=== PATIENT | female | born 1935 | race Caucasian/White ===

== ENCOUNTER → 2018-11-04 | Outpatient (CLI) | payer MEDICARE, OTHER ==
--- NOTE | 2018-11-04 13:26 | MR ---
EXAMINATION TYPE: MR brain wo/w con DATE OF EXAM: 11/04/2018 COMPARISON: MRI brain March 28, 2015 and older MRIs. HISTORY: Headache, aneurysm, and memory loss. TECHNIQUE: Multiplanar, multisequence images of the brain and brainstem is performed without and with IV contras t, utilizing 6 mL intravenous Gadavist . FINDINGS: Diffusion weighted images demonstrate no evidence of a recent infarct or other diffusion ab normality. There is no worrisome extra-axial fluid collection. There is diffuse ventricular and sulc al prominence. There are scattered foci of T2 hyperintensity seen throughout the superficial, deep, a nd the periventricular white matter. Slightly confluent in appearance periventricular level. No signi ficant change from prior. Midline structures demonstrate normal morphology. The craniocervical junction appears within normal limits. Post contrast images demonstrate no abnormal enhancement. There is hypoplastic left P1 segme nt with filling of P2 segment due to patent left posterior communicating artery. 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 The dural venous sinuses appear patent. The visualized sinuses are clear and the globes are intact. IMPRESSION: There is mild to moderate diffuse cerebral atrophy and moderate chronic small vessel isch emic change. 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
== END | disposition home or self-care (01) ==
LOC: RADMRIMAIN 11:26
PROVIDERS: ATTEND Family Medicine
DX: G31.9 Degenerative disease of nervous system, unspecified (principal); I67.82 Cerebral ischemia
CPT/HCPCS: 70553; A9585

== ENCOUNTER → 2022-01-05 | Outpatient (CLI) | payer MEDICARE, OTHER ==
--- NOTE | 2022-01-05 15:38 | PE ---
EXAMINATION TYPE: PET CT fusion skull to thigh DATE OF EXAM: 01/05/2022 COMPARISON: Outside chest CT December 08, 2021 HISTORY: Solitary pulmonary nodule, abnormal CT TECHNIQUE: Following the intravenous administration of 12.6 mCi of F-18 FDG, whole body images are p erformed from the skull base to the midthigh. Images are reviewed on the computer in the coronal, ax ial, and sagittal planes. Reconstructed rotating images are created on independent workstation and r eviewed on the computer. A localization and attenuation correction CT is performed in conjunction w ith the PET scan. Blood glucose level equals 95. SCAN: Initial Scan FINDINGS: SKULL BASE AND NECK: No abnormal hypermetabolic uptake. CHEST, MEDIASTINUM, AND HILAR REGION: Background moderate underlying emphysematous change redemonstra zuleika. Redemonstration of spiculated 3.6 x 3.4 cm mass in the left upper to midlung with abnormal hyper metabolic uptake, max SUV is 12.24. No additional areas of abnormal hypermetabolic uptake. ABDOMEN AND PELVIS: Slightly low dense thickening to left adrenal gland without abnormal hypermetabol ic uptake favors lipid rich hyperplasia. Some lobulated contour to the right kidney with partially ex ophytic thin-walled cyst anterolateral aspect axial image 177 measuring near 2.0 cm. No suspicious ar eas of abnormal hypermetabolic uptake. OSSEOUS STRUCTURES: No areas of abnormal hypermetabolic uptake. OTHER CT: Few diverticula in the sigmoid colon are present. IMPRESSION: Confirmation of hypermetabolic suspicious left upper lung spiculated mass consistent with neoplasm. No abnormal adenopathy or metastatic disease seen.
== END | disposition home or self-care (01) ==
LOC: RADPETMAIN 11:55
PROVIDERS: ATTEND Family Medicine
DX: R91.1 Solitary pulmonary nodule (principal)
CPT/HCPCS: 78815; A9552

== ENCOUNTER → 2022-01-27 | Outpatient (CLI) | payer MEDICARE, OTHER ==
--- NOTE | 2022-01-27 17:52 | MR ---
EXAMINATION TYPE: MR brain wo/w con DATE OF EXAM: 01/27/2022 COMPARISON: None HISTORY: Cerebral Aneurysm, nonruptured CONTRAST: Standard multiplanar, multisequence MRI departmental protocol images were obtained without contrast a nd with 6 mL intravenous Gadavist gadolinium contrast. There is some cerebral cortical atrophy. There is no mass effect or midline shift. No sign of intracr anial hemorrhage. Diffusion images show no sign of an acute infarct. There are coalescent areas of increased signal in the periventricular white matter adjacent to the ve ntricles. These measure up to 1 cm in thickness. The brainstem is intact. Cerebellum is intact. Contrast images show no pathologic enhancement. There is normal enhancement of the venous sinuses. There is minimal thinning of the corpus callosum. No evidence of sellar mass. No evidence of orbital mass. IMPRESSION: Periventricular white matter changes could relate to demyelinating disease or microvascular ischemia. Mild cerebral atrophy. No acute infarct.
== END | disposition home or self-care (01) ==
LOC: RADMRIMAIN 14:08
PROVIDERS: ATTEND Internal Medicine
DX: G31.9 Degenerative disease of nervous system, unspecified (principal)
CPT/HCPCS: 70553; A9585

== ENCOUNTER → 2022-10-20 | Outpatient (CLI) | payer MEDICARE, OTHER ==
--- NOTE | 2022-10-20 21:57 | PE ---
EXAMINATION TYPE: PET CT fusion skull to thigh DATE OF EXAM: 10/20/2022 CLINICAL INDICATION:Female, 87 years old with history of C34.12; TECHNIQUE: Following the intravenous administration of 13.4 mCi of F-18 FDG, whole body images are performed from the skull base to the midthigh. Images are reviewed on the computer in the coronal, a xial, and sagittal planes. Reconstructed rotating images are created on independent workstation and reviewed on the computer. A non-contrast CT is performed in conjunction with the PET scan. Glucose level 101 mg/dL COMPARISON: CT None, PET/CT 01/05/2022, FINDINGS: Mediastinal SUV mean is 1.6. Hepatic parenchyma SUV mean is 2.3. SKULL BASE AND NECK: Asymmetric right FDG activity within the oropharynx max SUV 4.3, previously 4.7 . CHEST, MEDIASTINUM, AND HILAR REGION: * Left upper lung mass no measuring 42 x 38 mm, previously 34 x 36 mm. Max SUV 18.3, previously 12.2 * Left upper lung nodule measures similarly at 5 mm with max SUV 1.4, previously 1.3. * Right upper lobe pulmonary nodule measuring 8 mm is similar max SUV 1.7, previously 1.4. ABDOMEN AND PELVIS: No suspicious radiotracer activity. OSSEOUS STRUCTURES: No suspicious radiotracer activity. OTHER CT: Bilaterally aphakia. Intracranial atherosclerosis of the arterial vasculature. Atherosclero sis of the arterial vasculature. Right renal cyst. Small hiatal hernia. Few scattered colonic diverti cula. IMPRESSION: 1. Overall progressive disease with increasing size of left upper lobe mass with increased metabolic activity. No enlarged metabolically active lymph nodes visualized. 2. Few scattered nodular changes are stable to prior and are suspicious. Attention follow-up of thes e lesions. 3. Mild asymmetric right oral pharynx FDG activity consider direct visualization and attention on fo llow-up.
== END | disposition home or self-care (01) ==
LOC: RADPETMAIN 13:13
PROVIDERS: ATTEND Family Medicine
DX: C34.12 Malignant neoplasm of upper lobe, left bronchus or lung (principal); R91.8 Other nonspecific abnormal finding of lung field
CPT/HCPCS: 78815; A9552

== ENCOUNTER → 2023-03-07 | Outpatient (CLI) | payer MEDICARE, OTHER ==
--- NOTE | 2023-03-07 13:21 | CT ---
EXAMINATION TYPE: CT chest wo con DATE OF EXAM: 03/07/2023 COMPARISON: PET/CT 10/20/2022 HISTORY: lung CA CT DLP: [address] of the chest was performed with lung and mediastinal window settings submitted. The la ck of contrast limits evaluation of the vascular, mediastinal and parenchymal structures including th e upper abdomen. LUNGS: There is left upper lobe perihilar mass noted measuring 3.3 x 3.2 cm with measurement on PET/C T of 4.2 x 3.8 cm. There is narrowing of the left upper lobe bronchus. No evidence for volume loss at this time. There are couple of nodular densities within the left upper lobe measuring 7 mm respectiv darrin. There is additional 8 mm right upper lobe pulmonary nodule image 27. Groundglass density seen le ft lower lobe posteriorly measures 5.5 mm. Upper lobe centrilobular emphysema. MEDIASTINUM/JOSE: Thoracic aorta is of normal caliber with limited evaluation given lack of contrast . The heart is not enlarged. No evidence for mediastinal mass. No lymph nodes greater than 1cm. UPPER ABDOMEN: No significant abnormality is seen. OTHER: No significant other abnormality. IMPRESSION: 1. Left upper lobe pulmonary mass persists however appears to be smaller in size. Scattered pulmonar y nodules. No definite evidence for hilar adenopathy although lack of contrast limits evaluation.
== END | disposition home or self-care (01) ==
LOC: RADCTMAIN 11:45
PROVIDERS: ATTEND Radiology Radiation Oncology
DX: C34.12 Malignant neoplasm of upper lobe, left bronchus or lung (principal); R91.8 Other nonspecific abnormal finding of lung field; Z87.891 Personal history of nicotine dependence
CPT/HCPCS: 71250

== ENCOUNTER → 2023-05-27 | Outpatient (CLI) | payer MEDICARE, OTHER ==
--- NOTE | 2023-05-30 09:42 | CT ---
EXAMINATION TYPE: CT chest wo con CT DLP: 416 mGycm, Automated exposure control for dose reduction was used. DATE OF EXAM: 05/27/2023 10:48 AM COMPARISON: CT chest 03/07/2023 and before including PET/CT 10/20/2022. CLINICAL INDICATION:Female, 88 years old with history of C34.12 LUNG CA; PHH, h/o lung CA, f/u TECHNIQUE: Multiple axial images were obtained through the chest. Sagittal and coronal reformats were created for review. Contrast used: mL of (None if empty) Oral contrast used: (None if empty) FINDINGS: Exam is limited by lack of contrast. LUNGS: Continued decrease in size and bulkiness of the left upper lobe perihilar mass (had intense in creased activity on PET), now difficult to measure precisely and its morphology is now rather flat an d strandy suggesting progressive resolution. As a reference point, residual somewhat nodular portion anteriorly is now 1.4 x 1.2 cm image 20 series 4, and this same area had been 1.6 x 1.6 cm on the oscar or CT study. Previous left upper lobe 4.5 mm nodule on the PET/CT (had increased activity on PET) appears smaller/ less conspicuous measuring at most 3 mm currently image 10. An 8 mm nodular density in the lateral right upper lobe above the horizontal fissure image 25 (had in creased activity on PET) remains essentially stable. A somewhat stellate appearing focal groundglass density in the posterior left lower lobe appears unchanged measuring about 5 mm images 37 and 38 (and did not show increased activity on PET). No definite new or enlarging nodules. Moderate background e mphysema with an upper lobe predominance is again noted. Scattered areas of presumed scarring in both lungs are again noted. No acute consolidation, pleural effusion, or pneumothorax. AIRWAY: Central airways remain patent. There is again some degree of narrowing of the left upper lobe bronchi, without significant change. MEDIASTINUM/JOSE: Thoracic aorta appears unchanged, mild atherosclerotic calcification and the ascend ing portion is 3.1 cm. No enlarged mediastinal nodes. No definite hilar adenopathy is seen, although assessment is limited without contrast. Heart is normal in size. No pericardial effusion. Pulmonary t runk is nonenlarged. CHEST WALL: Stable and unremarkable. No evidence of axillary adenopathy. UPPER ABDOMEN: No significant abnormality or interval change. Mildly thickened left adrenal without e vidence of mass. MUSCULOSKELETAL: Mild degenerative changes of the thoracic spine. No clear evidence of lytic/blastic bony lesion. OTHER: No other significant abnormality. IMPRESSION: 1. Continued decrease in size and bulkiness of left upper lobe pulmonary mass suggesting progressive resolution. 2. Slight decrease in size of subcentimeter left upper lobe nodule. 3. Stable size of 8 mm right upper lobe nodule. 4. Otherwise stable exam, without evidence of new or enlarging lung nodule or mass.
== END | disposition home or self-care (01) ==
LOC: RADCTMAIN 10:13
PROVIDERS: ATTEND Radiology Radiation Oncology
DX: R91.8 Other nonspecific abnormal finding of lung field (principal); C34.12 Malignant neoplasm of upper lobe, left bronchus or lung; Z87.891 Personal history of nicotine dependence
CPT/HCPCS: 71250

== ENCOUNTER 2023-07-23 11:30 | Inpatient (IN) | payer MEDICARE, OTHER ==
--- NOTE | 2023-07-23 12:10 | ED ---
General Adult HPI - General Chief complaint: Recheck/Abnormal Lab/Rx Stated complaint: Cough, Chest Discomfort, Lung CA Pt Time Seen by Provider: 07/23/23 11:42 Source: patient, RN notes reviewed Mode of arrival: ambulatory Limitations: no limitations - History of Present Illness Initial comments: 88-year-old female presents emergency department from [facility] for evaluation of chest pain and shortness of breath. Patient states she has a history of lung cancer, renal mass. Patient states that she had a follow-up appointment with Dr. Miles today in which she is she was having worsening left-sided chest pain worse with cough and sent over for evaluation. Patient was also supposed to have a CT of her abdomen ordered by Dr. Hamilton for her deneen al mass. Patient states the pain in her chest has been worsening over the last several days she denies any rashes she states that she is not on any current treatment for cancer. - Related Data Home Medications Medication Instructions Recorded Confirmed Albuterol Inhaler [Ventolin Hfa 2 puff INHALATION RT-QID PRN 07/23/23 07/23/23 Inhaler] Cyanocobalamin [Vitamin B-12] 500 mcg PO DAILY 07/23/23 07/23/23 Fluticasone/Vilanterol [Breo 1 puff INHALATION RT-DAILY 07/23/23 07/23/23 Ellipta 100-25 Mcg Inhalr] guaiFENesin-DM 600/30MG [Mucinex 1 tab PO DAILY 07/23/23 07/23/23 Dm] Allergies Allergy/AdvReac Type Severity Reaction Status Date / Time No Known Allergies Allergy Verified 07/23/23 14:46 Review of Systems ROS Statement: Those systems with pertinent positive or pertinent negative responses have been documented in the HPI. ROS Other: All systems not noted in ROS Statement are negative. Past Medical History Past Medical History: Cancer Additional Past Medical History / Comment(s): lung CA History of Any Multi-Drug Resistant Organisms: None Reported Past Psychological History: No Psychological Hx Reported Smoking Status: Never smoker Past Alcohol Use History: None Reported Past Drug Use History: None Reported General Exam Limitations: no limitations General appearance: alert, in no apparent distress Head exam: Present: atraumatic, normocephalic, normal inspection Eye exam: Present: normal appearance, PERRL, EOMI. Absent: scleral icterus, conjunctival injection, periorbital swelling ENT exam: Present: normal exam, normal oropharynx, mucous membranes moist Neck exam: Present: normal inspection. Absent: tenderness, meningismus, lymphadenopathy Respiratory exam: Absent: normal lung sounds bilaterally, respiratory distress, wheezes, rales, rhonchi, stridor Cardiovascular Exam: Present: regular rate, normal rhythm, normal heart sounds. Absent: systolic murmur, diastolic murmur, rubs, gallop, clicks GI/Abdominal exam: Present: soft, normal bowel sounds. Absent: distended, tenderness, guarding, rebound, rigid Neurological exam: Present: alert Course Vital Signs 07/23/23 07/23/23 07/23/23 11:37 12:10 13:00 Temperature 98.8 F Pulse Rate 85 87 78 Respiratory 18 20 16 Rate Blood Pressure 159/80 147/79 147/79 O2 Sat by Pulse 98 96 98 Oximetry 07/23/23 13:22 Temperature Pulse Rate Respiratory 20 Rate Blood Pressure O2 Sat by Pulse Oximetry EKG Findings - EKG Comments: EKG Findings:: EKG performed at 12: 21 sinus rhythm with rate of 79 [place] 173 QRS 126 QT/QTc 390/425 - EKG Results: EKG: interpreted by VALERIO Medical Decision Making - Medical Decision Making Was pt. sent in by a medical professional or institution (, PA, TECHNOLOGY ARCHITECT, urgent care, hospital, or custodial...) When possible be specific @ -Just Did you speak to anyone other than the patient for history (EMS, parent, family, police, friend...)? What history was obtained from this source @ -No Did you review nursing and triage notes (agree or disagree)? Why? @ -I reviewed and agree with nursing and triage notes Were old charts reviewed (outside hosp., previous admission, EMS record, old EKG, old radiological studies, urgent care reports/EKG's, custodial records)? Report findings @ -No old charts were reviewed Differential Diagnosis (chest pain, altered mental status, abdominal pain women, abdominal pain men, vaginal bleeding, weakness, fever, dyspnea, syncope, headache, dizziness, GI bleed, back pain, seizure, CVA, palpatations, mental health, musculoskeletal)? @ -[Differential Chest Pain: Stable Angina, Unstable Angina, STEMI, NSTEMI Aortic Dissection, Pneumothorax, Musculoskeletal, Esophageal Spasm GERD, Cholecystitis, Pancreatitis, Zoster, this is not meant to be an all-inclusive list. EKG interpreted by me (3pts min.). @ -As above X-rays interpreted by me (1pt min.). @ -None done CT interpreted by me (1pt min.). @ -[CT E PE study angio chest showing no evidence of pulmonary embolism severe emphysema, left upper lobe mass with evidence of atelectasis or pneumonia changes CT abdomen pelvis shows no acute process U/S interpreted by me (1pt. min.). @ -None done What testing was considered but not performed or refused? (CT, X-rays, U/S, labs)? Why? @ -None What meds were considered but not given or refused? Why? @ -None Did you discuss the management of the patient with other professionals (professionals i.e. , PA, TECHNOLOGY ARCHITECT, lab, RT, psych nurse, medical social worker, recovery assistant, teacher, aoc director intelligence officer, telehealth case manager)? Give summary @ -No Was smoking cessation discussed for >3mins.? @ -No Was critical care preformed (if so, how long)? @ -No Were there social determinants of health that impacted care today? How? (Homelessness, low income, unemployed, alcoholism, drug addiction, transportation, low edu. Level, literacy, decrease access to med. care, care home, rehab)? @ -No Was there de-escalation of care discussed even if they declined (Discuss DNR or withdrawal of care, Hospice)? DNR status @ -No What co-morbidities impacted this encounter? (DM, HTN, Smoking, COPD, CAD, Cancer, CVA, ARF, Chemo, Hep., AIDS, mental health diagnosis, sleep apnea, morbid obesity)? @ -Lung cancer smoking history Was patient admitted / discharged? Hospital course, mention meds given and route, prescriptions, significant lab abnormalities, going to OR and other pertinent info. @ -[Admit the patient is having persistent lung pain, cough, evidence of pneumonia with known lung mass. Patient started on IV antibiotics with admitted for further evaluation and treatment of pneumonia. Undiagnosed new problem with uncertain prognosis? @ -Yes Drug Therapy requiring intensive monitoring for toxicity (Heparin, Nitro, Insulin, Cardizem)? @ -[No Were any procedures done? @ -No Diagnosis/symptom? @ -pneumonia, lung mass Acute, or Chronic, or Acute on Chronic? @ -[Acute Uncomplicated (without systemic symptoms) or Complicated (systemic symptoms)? @ -Complicated Side effects of treatment? @ -No Exacerbation, Progression, or Severe Exacerbation? @ -No Poses a threat to life or bodily function? How? (Chest pain, [place], [place], pneumonia, PE, COPD, DKA, ARF, appy, cholecystitis, CVA, Diverticulitis, Homicidal, Suicidal, threat to staff... and all critical care pts) @ -[Yes pneumonia, could cause respiratory failure - Lab Data Result diagrams: 07/23/23 12:04 07/23/23 12:04 Lab Results 07/23/23 07/23/23 07/23/23 Range/Units 12: 12: 12:04 WBC 7.3 (3.8-10.6) k/uL RBC 4.73 (3.80-5.40) m/uL Hgb 14.4 (11.4-16.0) gm/dL Hct 43.7 (34.0-46.0) % MCV 92.2 (80.0-100.0) fL MCH 30.5 (25.0-35.0) pg MCHC 33.0 (31.0-37.0) g/dL RDW 12.1 (11.5-15.5) % Plt Count 293 (150-450) k/uL MPV 7.2 Neutrophils % 70 % Lymphocytes % 15 % Monocytes % 9 % Eosinophils % 3 % Basophils % 1 % Neutrophils # 5.1 (1.3-7.7) k/uL Lymphocytes # 1.1 (1.0-4.8) k/uL Monocytes # 0.7 (0-1.0) k/uL Eosinophils # 0.2 (0-0.7) k/uL Basophils # 0.1 (0-0.2) k/uL PT 10.6 (10.0-12.5) sec INR 1.0 (<1.2) APTT 24.2 (22.0-30.0) sec Sodium 142 (137-145) mmol/L Potassium 4.2 (3.5-5.1) mmol/L Chloride 108 H (98-107) mmol/L Carbon Dioxide 28 (22-30) mmol/L Anion Gap 6 mmol/L BUN 13 (7-17) mg/dL Creatinine 0.61 (0.52-1.04) mg/dL Est GFR (CKD-EPI)AfAm >90 (>60 ml/min/1.73 sqM) Est GFR (CKD-EPI)NonAf 82 (>60 ml/min/1.73 sqM) Glucose 112 H (74-99) mg/dL Plasma Lactic Acid Arsalan (0.7-2.0) mmol/L Calcium 9.1 (8.4-10.2) mg/dL Magnesium 1.9 (1.6-2.3) mg/dL Total Bilirubin 0.6 (0.2-1.3) mg/dL AST 26 (14-36) U/L ALT 14 (4-34) U/L Alkaline Phosphatase 81 (38-126) U/L Troponin I (0.000-0.034) ng/mL Total Protein 6.9 (6.3-8.2) g/dL Albumin 4.2 (3.5-5.0) g/dL Influenza Type A (PCR) (Not Detectd) Influenza Type B (PCR) (Not Detectd) RSV (PCR) (Not Detectd) SARS-CoV-2 (PCR) (Not Detectd) 07/23/23 07/23/23 07/23/23 Range/Units 12:04 12:04 12:15 WBC (3.8-10.6) k/uL RBC (3.80-5.40) m/uL Hgb (11.4-16.0) gm/dL Hct (34.0-46.0) % MCV (80.0-100.0) fL MCH (25.0-35.0) pg MCHC (31.0-37.0) g/dL RDW (11.5-15.5) % Plt Count (150-450) k/uL MPV Neutrophils % % Lymphocytes % % Monocytes % % Eosinophils % % Basophils % % Neutrophils # (1.3-7.7) k/uL Lymphocytes # (1.0-4.8) k/uL Monocytes # (0-1.0) k/uL Eosinophils # (0-0.7) k/uL Basophils # (0-0.2) k/uL PT (10.0-12.5) sec INR (<1.2) APTT (22.0-30.0) sec Sodium (137-145) mmol/L Potassium (3.5-5.1) mmol/L Chloride (98-107) mmol/L Carbon Dioxide (22-30) mmol/L Anion Gap mmol/L BUN (7-17) mg/dL Creatinine (0.52-1.04) mg/dL Est GFR (CKD-EPI)AfAm (>60 ml/min/1.73 sqM) Est GFR (CKD-EPI)NonAf (>60 ml/min/1.73 sqM) Glucose (74-99) mg/dL Plasma Lactic Acid Arsalan 1.3 (0.7-2.0) mmol/L Calcium (8.4-10.2) mg/dL Magnesium (1.6-2.3) mg/dL Total Bilirubin (0.2-1.3) mg/dL AST (14-36) U/L ALT (4-34) U/L Alkaline Phosphatase (38-126) U/L Troponin I <0.012 (0.000-0.034) ng/mL Total Protein (6.3-8.2) g/dL Albumin (3.5-5.0) g/dL Influenza Type A (PCR) Not Detected (Not Detectd) Influenza Type B (PCR) Not Detected (Not Detectd) RSV (PCR) Not Detected (Not Detectd) SARS-CoV-2 (PCR) Not Detected (Not Detectd) Disposition Clinical Impression: Pneumonia Disposition: ADMITTED IP TO THIS [facility] Condition: Fair Time of Disposition: 14:15
[2023-07-23 12:15] LABS: Basophils # (A) 0.1 k/uL (0-0.2); Basophils % (A) 1 %; Eosinophils # (A) 0.2 k/uL (0-0.7); Eosinophils % (A) 3 %; HCT 43.7 % (34.0-46.0); HGB 14.4 gm/dL (11.4-16.0); Lymphocytes # (A) 1.1 k/uL (1.0-4.8); Lymphocytes % (A) 15 %; MCH 30.5 pg (25.0-35.0); MCV 92.2 fL (80.0-100.0); Mean Platelet Volume 7.2; Monocytes # (A) 0.7 k/uL (0-1.0); Monocytes % (A) 9 %; Neutrophils # (A) 5.1 k/uL (1.3-7.7); Neutrophils % (A) 70 %; Platelet Count 293 k/uL (150-450); RBC 4.73 m/uL (3.80-5.40); RDW 12.1 % (11.5-15.5); WBC 7.3 k/uL (3.8-10.6)
[2023-07-23] MEDS: SODIUM CHLORIDE 0.9% 500 ML 500 ML IV ONE (12:26)
[2023-07-23 12:27] LABS: ALT 14 U/L (4-34); AST 26 U/L (14-36); African American GFR (CKD) >90 (>60 ml/min/1.73 sqM); Albumin 4.2 g/dL (3.5-5.0); Alkaline Phosphatase 81 U/L (38-126); Anion Gap 6 mmol/L; Blood Urea Nitrogen 13 mg/dL (7-17); Calcium 9.1 mg/dL (8.4-10.2); Carbon Dioxide 28 mmol/L (22-30); Chloride 108 mmol/L (98-107); Glucose 112 mg/dL (74-99); Magnesium 1.9 mg/dL (1.6-2.3); Non-African American GFR(CKD) 82 (>60 ml/min/1.73 sqM); Potassium 4.2 mmol/L (3.5-5.1); Sodium 142 mmol/L (137-145); Total Bilirubin 0.6 mg/dL (0.2-1.3); Total Protein 6.9 g/dL (6.3-8.2)
[2023-07-23 12:29] LABS: Partial Thromboplastin Time 24.2 sec (22.0-30.0); Prothrombin Time 10.6 sec (10.0-12.5)
--- NOTE | 2023-07-23 13:48 | CT ---
EXAMINATION: CTA CHEST, CT ABDOMEN AND PELVIS WITH IV CONTRAST DATE OF EXAM: 07/23/2023 1:28 PM HISTORY: Chest pain and shortness of breath with history of lung cancer. TECHNIQUE: CTA of the chest followed by routine CT abdomen and pelvis was performed with sagittal, co aristides and 3-D reformatted images. 100 mL of Isovue-300. CT dose lowering techniques were used, to inc lude: automated exposure control, adjustment for patient size, and or use of iterative reconstruction . COMPARISON: CT chest on 05/27/2023 and PET/CT on 10/20/2022. FINDINGS: CHEST CTA: Lungs: There is severe centrilobular emphysema. There is a 9.4 mm nodule in the right upper lobe on series 401 image 62 which is unchanged. There is some consolidative change in the left upper lobe whi ch appears adjacent to the left suprahilar adenopathy or mass which may be a postobstructive pneumoni a. This is slightly more prominent than the previous examination. The lungs otherwise appear clear. Pleura: Normal. Mediastinum And Liz: Left suprahilar lymph node measures up to 1.8 cm in short axis diameter which w ould raise the possibility of metastasis. Pulmonary Arteries: Normal. Cardiovascular: There is mild vascular calcification and plaque seen throughout the thoracic aorta wi thout evidence of aneurysmal dilation or dissection. Chest Wall: Normal. ABDOMEN/PELVIS: Liver: Normal. Gallbladder/Biliary: Normal. Pancreas: Normal. Spleen: Normal. Adrenal Glands: Normal. Kidneys: Simple right renal cyst measures 2.3 cm. The kidneys otherwise appear unremarkable GI Tract: There is a small sliding hiatal hernia. There is moderate sigmoid colonic diverticulosis wi thout evidence of diverticulitis. Mesentery/Peritoneum: Normal. Vasculature: There is moderate vascular calcification throughout the abdominal aorta without evidence of aneurysmal dilation or dissection. Lymph Nodes: Normal. Abdominal Wall: Normal. Bladder: Normal. Reproductive: Unremarkable CT appearance. MUSCULOSKELETAL: Normal. IMPRESSION: 1. Left suprahilar mass with likely postobstructive atelectasis or pneumonia. The overall appearance is likely similar to the previous examination, however direct comparison is difficult for size of th e lesion due to the lack of intravenous contrast on the prior study for comparison. Findings do appea r slightly more prominent. 2. No evidence of pulmonary emphysema. 3. Severe emphysema. 4. Unchanged right-sided pulmonary nodule. 5. Diverticulosis without evidence of diverticulitis. 6. No acute process otherwise seen within the abdomen or pelvis..
[2023-07-23] MEDS ORDERED: PNEUMONIA PROTOCOL UTILIZED 1 EACH MISC PO PRN (14:12)
[2023-07-23] MEDS ORDERED: IPRATROPIUM-ALBUTEROL 3 ML NEB INHALATION PRN (14:12)
[2023-07-23] MEDS: ONDANSETRON 4 MG/2 ML VIAL IVP STA (14:38)
[2023-07-23] MEDS: MORPHINE SULFATE 2 MG/ML SYRINGE IVP ONE (14:40)
[2023-07-23] MEDS: AZITHROMYCIN 500 MG in SODIUM CHLORIDE 0.9% 250 ML IVPB STA (14:41)
[2023-07-23] MEDS: IPRATROPIUM-ALBUTEROL 3 ML NEB INHALATION SCH (15:33)
--- NOTE | 2023-07-23 17:21 | P.CNPUL ---
History of Present Illness Consult date: 07/23/23 Requesting physician: Sameer Birmingham Reason for consult: COPD, lung mass Chief complaint: Chest pain and shortness of breath History of present illness: This is an 88-year-old seen with known history of severe COPD, O2 dependent, not prednisone dependent, patient normally sees me in the office, patient had left upper lobe mass which has been growing in size, and the patient at 1 point did not want any intervention done. She declined tissue diagnosis, declined bronchoscopy, declined any diagnostic workup. However considering the mass was gradually getting bigger in size, I convinced the patient back in November of 2022 to at least have radiation treatment. Patient underwent radiation treatment, and has been doing fairly well with definite shrinkage in the size of the mass in the left upper lobe. Patient continues to follow-up with radiation oncology. And I have not seen this patient since 03/08/2023. At that time I advised the patient to continue albuterol, and continue WIXELA INHUB. Her FEV1 is normally in the range of six 0.8, FEV1/FVC is 46%. In addition to her COPD and pre sumptive lung cancer, patient had history of previous cerebral aneurysm, and she had chronic hypoxic respiratory failure. Today the patient was seen in the ER with few days history of left-sided chest pain worse upon coughing, and seems to be worse upon applying pressure or palpation of the left sided chest wall. CT of the chest was done today, it clearly showed left suprahilar mass with some po stobstructive atelectasis or pneumonia, appearance is very much similar to previous CT of the chest. There was also evidence of emphysema/severe emphysema, her CT of the abdomen and pelvis showed diverticulosis without evidence of diverticulitis. At any rate clearly the patient has mostly chest wa ll pain, and she could have easily had a hairline fracture of one of her ribs related to her coughing, but no evidence of pulmonary embolism, and no evidence of any significant change from previous CT of the chest nonetheless, patient was admitted, and this consult was initiated patient does describe cough, unable to clear any phlegm, no fever, no chills, no hemoptysis, CBC is relatively normal basic metabolic profile is normal, Renal profile is normal, inflow once a day, influenza B and RSV PCR as well as PCR for COVID-19 are all negative Review of Systems REVIEW OF SYSTEMS: CONSTITUTIONAL: Negative. EYES: Negative. ENT: Negative. CARDIAC: Negative. PULMONARY: Chest wall pain and shortness of breath GI: Negative. GENITOURINARY: Negative. MUSCULOSKELETAL: Negative. SKIN: Negative. NEUROPSYCH: Negative. ENDOCRINE: Negative. HEMATOLOGIC: Negative. Past Medical History Past Medical History: Cancer Additional Past Medical History / Comment(s): lung CA History of Any Multi-Drug Resistant Organisms: None Reported Additional Past Surgical History / Comment(s): Back surgery Past Psychological History: No Psychological Hx Reported Smoking Status: Former smoker Past Alcohol Use History: None Reported Past Drug Use History: None Reported Medications and Allergies Home Medications Medication Instructions Recorded Confirmed Type Albuterol Inhaler [Ventolin Hfa 2 puff INHALATION RT-QID PRN 07/23/23 07/23/23 History Inhaler] Cyanocobalamin [Vitamin B-12] 500 mcg PO DAILY 07/23/23 07/23/23 History Fluticasone/Vilanterol [Breo 1 puff INHALATION RT-DAILY 07/23/23 07/23/23 Hi story Ellipta 100-25 Mcg Inhalr] guaiFENesin-DM 600/30MG [Mucinex 1 tab PO DAILY 07/23/23 07/23/23 History Dm] Allergies Allergy/AdvReac Type Severity Reaction Status Date / Time No Known Allergies Allergy Verified 07/23/23 14:46 Physical Exam Vitals: Vital Signs Temp Pulse Pulse Resp BP BP Pulse Ox 07/23/23 15:58 98.4 F 60 17 121/72 96 07/23/23 15:28 98.5 F 74 16 130/68 96 07/23/23 15:00 75 16 135/70 96 07/23/23 14:00 86 16 140/70 98 07/23/23 13:22 20 07/23/23 13:00 78 16 147/79 98 07/23/23 12:10 87 20 147/79 96 07/23/23 11:37 98.8 F 85 18 159/80 98 Intake and Output 07/23/23 07/23/23 07/23/23 06:59 14:59 22:59 Other: Weight 62.142 kg 62.142 kg General: Revealed 88-year-old female extremely pleasant in no distress on room air Head: Atraumatic normocephalic Skin: Skin is warm and dry and no rashes or lesions are noted. Eye: Pupils are equal, round and reactive to light, extra-ocular movements are intact; there is normal conjunctiva bilaterally. Ears, nose, mouth and throat: There are moist mucous membranes and no oral lesions. Neck: The neck is supple, there is no tenderness or JVD. Cardiovascular: There is a regular rate and rhythm. No murmur, rub or gallop is appreciated. Respiratory: Diminished breath sound bilaterally no crackles rhonchi or wheezes left-sided chest wall tenderness is noted and patient has exquisite tenderness over the left upper ribs Gastrointestinal: Soft, non-distended, non-tender abdomen without masses or organomegaly noted. There is no rebound or guarding present. Bowel sounds are unremarkable. Back: There is no tenderness to palpation in the midline. There is no obvious deformity. Musculoskeletal: Normal ROM, no tenderness, There is no pedal edema. There is no calf tenderness or swelling. No cords were appreciated. Neurological: CN II-XII intact, Cranial nerves III through XII are intact. There are no obvious motor or sensory deficits. Coordination appears grossly intact. Speech is normal. Psychiatric: Cooperative, appropriate mood & affect, normal judgment. Results - Laboratory Findings CBC and BMP: 07/23/23 12:04 07/23/23 12:04 PT/INR, D-dimer PT 10.6 sec (10.0-12.5) 07/23/23 12:04 INR 1.0 (<1.2) 07/23/23 12:04 Abnormal lab findings: Abnormal Labs 07/23/23 12:04 Chloride 108 H Glucose 112 H - Diagnostic Findings CT scan - chest: image reviewed (As noted in HPI) Assessment and Plan Assessment: Impression: Chest wall pain, possible left-sided ribs fracture Lung mass highly suspicious for bronchogenic carcinoma status post radiation therapy Severe underlying COPD FEV1 is 0.8% Chronic hypoxic respiratory failure History of multiple pulmonary nodules Doubt postobstructive pneumonia clinically the patient does not have symptoms to suggest pneumonia nonetheless I would recommend procalcitonin level, if normal could discontinue antibiotics and discharge the patient home. Recommendation: Continue present medications including antibiotics Check procalcitonin level and if normal no need for antibiotics Continue bronchodilators as listed including DuoNeb, and add Symbicort, patient is normally on Wixela at home. For pain control would recommend pain medications, and possibly lidocaine patch applied to the chest wall. Consider discharge planning in the next 24 hours Time with Patient: Greater than 30
[2023-07-23] MEDS: SYMBICORT 160-4.5 MCG INHALER INHALATION SCH (19:21)
[2023-07-23] MEDS ORDERED: NALOXONE 0.4 MG/ML 1 ML VIAL IV PRN (19:55)
--- NOTE | 2023-07-23 20:04 | P.HPIM ---
History of Present Illness H&P Date: 07/23/23 Chief Complaint: Left chest wall pain This is a pleasant 88-year-old patient who follows with Dr. Azul. Patient has a left long upper lobe mass that she was following with Dr. Hamilton. Initially did not want any treatment. Subsequently as it was great he she decided agreed to get treatment and started getting radiation treatment back in November 2022. Patient does have home oxygen that she uses on a as needed basis. Also has a cerebral aneurysm behind the right eye that is being followed outpatient. For about 1 week patient been having increasing pain in the left axilla area. Does not cross to the midline of the back. Increasing cough no sputum production. Appetite is fair. Came in for the same. Review of systems: GEN.: Tired EYES: None HEENT: None NECK: None RESPIRATORY: [As above CARDIOVASCULAR: None GASTROINTESTINAL: None GENITOURINARY: Urinary incontinence MUSCULOSKELETAL: None LYMPHATICS: None HEMATOLOGICAL: None PSYCHIATRY: None NEUROLOGICAL: None Social history: Smoked a pack for close to 57 years stopped in 16 years ago. Lives with her son and grandson. No alcohol. Physical examination: VITAL SIGNS: 98.3, 80, 16, 1 one 4 x 68, 90% room air GENERAL: [BMI 62.1, reclining bed awake not in distress le. EYES: Pupils equal. Conjunctiva leandro l. HEENT: External appearance of nose and ears normal, oral cavity grossly normal. NECK: JVD not raised; masses not palpable. HEART: First and second heart sounds are normal; no edema. LUNGS: Respiratory rate normal; diminished breath sounds. ABDOMEN: Soft, nontender, liver spleen not palpable, no masses palpable. PSYCH: Alert and oriented x3; mood and affect leandro l. MUSCULOSKELETAL:No Clubbing/cyanosis;muscles-grossly intact. OA NEUROLOGICAL: Cranial nerves grossly intact; no facial asymmetry, power and sensation grossly intact. LYMPHATICS: No lymph nodes palpable in the axilla and neck INVESTIGATIONS, reviewed in the clinical context: July 22: White count 7.3 hemoglobin 14.4 platelets 293 sodium 142 potassium 4.2 BUN 13 creatinine 0.61 Troponin I less than 0.012 Influenza type A, B, RSV, COVID-19: Not detected EKG tracing personally reviewed by me-normal sinus rhythm. Right bundle Tee block CT chest: Left suprahilar mass with likely postobstructive atelectasis/ pneumonia. Severe emphysema colonic diverticulosis. Assessment plan: -Acute postobstructive pneumonia/atelectasis. IV ceftriaxone Check procalcitonin -Left chest wall pain. Nothing on the outside. This could be a nerve pain involving from a lung mass. Naproxen to 50 mg 3 times daily. Neurontin 100 mg 3 times daily -COPD no prior smoker DuoNeb. Symbicort -Left upper lobe lung cancer. Patient getting radiation treatment. Follows with Dr. Shea, from radiation oncology -Primary osteoarthritis Tylenol as needed -Chronic urine incontinence -DNR per patient wishes Care was discussed with the patient. Questions answered. Consultation with Dr. Hamilton from pulmonary. Given the complexity and severity of patient's condition expect the patient to be in the hospital at least for 2 overnights Past Medical History Past Medical History: Cancer Additional Past Medical History / Comment(s): lung CA History of Any Multi-Drug Resistant Organisms: None Reported Additional Past Surgical History / Comment(s): Back surgery Past Psychological History: No Psychological Hx Reported Smoking Status: Former smoker Past Alcohol Use History: None Reported Past Drug Use History: None Reported Medications and Allergies Home Medications Medication Instructions Recorded Confirmed Type Albuterol Inhaler [Ventolin Hfa 2 puff INHALATION RT-QID PRN 07/23/23 07/23/23 History Inhaler] Cyanocobalamin [Vitamin B-12] 500 mcg PO DAILY 07/23/23 07/23/23 History Fluticasone/Vilanterol [Breo 1 puff INHALATION RT-DAILY 07/23/23 07/23/23 History Ellipta 100-25 Mcg Inhalr] guaiFENesin-DM 600/30MG [Mucinex 1 tab PO DAILY 07/23/23 07/23/23 History Dm] Allergies Allergy/AdvReac Type Severity Reaction Status Date / Time No Known Allergies Allergy Verified 07/23/23 14:46 Physical Exam Vitals: Vital Signs Temp Pulse Pulse Resp BP BP Pulse Ox 07/23/23 19:35 98.3 F 80 16 114/68 90 L 07/23/23 19:32 68 07/23/23 19:22 64 07/23/23 15:58 98.4 F 60 17 121/72 96 07/23/23 15:28 98.5 F 74 16 130/68 96 07/23/23 15:00 75 16 135/70 96 07/23/23 14:00 86 16 140/70 98 07/23/23 13:22 20 07/23/23 13:00 78 16 147/79 98 07/23/23 12:10 87 20 147/79 96 07/23/23 11:37 98.8 F 85 18 159/80 98 Intake and Output 07/23/23 07/23/23 07/23/23 06:59 14:59 22:59 Other: Weight 62.142 kg 62.142 kg Results CBC & Chem 7: 07/23/23 12:04 07/23/23 12:04 Labs: Abnormal Lab Results - Last 24 Hours (Table) 07/23/23 Range/Units 12:04 Chloride 108 H (98-107) mmol/L Glucose 112 H (74-99) mg/dL Thrombosis Risk Factor Assmnt - Choose All That Apply Any of the Below Risk Factors Present?: No Other Risk Factors: Yes Each Risk Factor Represents 2 Points: Malignancy Thrombosis Risk Factor Assessment Total Risk Factor Score: 2 Thrombosis Risk Factor Assessment Level: Low Risk
[2023-07-23] MEDS: ENOXAPARIN 40 MG/0.4 ML SYRINGE SQ SCH (20:22)
[2023-07-23] MEDS: ACETAMINOPHEN TAB 325 MG TAB PO SCH (20:23)
[2023-07-23] MEDS: NAPROXEN 250 MG TAB PO STA (20:23)
[2023-07-23] MEDS: GABAPENTIN 100 MG CAP PO SCH (21:13)
[2023-07-24] MEDS: AZITHROMYCIN 500 MG TAB PO SCH (08:56)
[2023-07-24] MEDS: NAPROXEN 250 MG TAB PO SCH ×2 (08:57→20:33)
--- NOTE | 2023-07-24 11:05 | XR ---
EXAMINATION TYPE: XR chest 2V DATE OF EXAM: 07/24/2023 COMPARISON: 523 HISTORY: Shortness of breath TECHNIQUE: Frontal and lateral views of the chest are obtained. FINDINGS: Scattered senescent parenchymal changes noted. Hyperinflation compatible with COPD. No evidence for infiltrate. Discoid atelectasis or parenchymal scarring left upper lobe. Heart size is stable. Mediastinal structures are stable and grossly unremarkable. No evidence for hilar prominence. Degenerative changes dorsal spine. IMPRESSION: 1. No evidence for acute pulmonary disease.
[2023-07-24] MEDS: LACTULOSE 20 GM/30 ML CUP PO ONE (11:45)
--- NOTE | 2023-07-24 13:40 | P.PN ---
Subjective Progress Note Date: 07/24/23 This is an 88-year-old seen with known history of severe COPD, O2 dependent, not prednisone dependent, patient normally sees me in the office, patient had left upper lobe mass which has been growing in size, and the patient at 1 point did not want any intervention done. She declined tissue diagnosis, declined bronchoscopy, declined any diagnostic workup. However considering the mass was gradually getting bigger in size, I convinced the patient back in November of 2022 to at least have radiation treatment. Patient underwent radiation treatment, and has been doing fairly well with definite shrinkage in the size of the mass in the left upper lobe. Patient continues to follow-up with radiation oncology. And I have not seen this patient since 03/08/2023. At that time I advised the patient to continue albuterol, and continue WIXELA INHUB. Her FEV1 is normally in the range of six 0.8, FEV1/FVC is 46%. In addition to her COPD and presumptive lung cancer, patient had history of previous cerebral aneurysm, and she had chronic hypoxic respiratory failure. Today the patient was seen in the ER with few days history of left-sided chest pain worse upon coughing, and seems to be worse upon applying pressure or palpation of the left sided chest wall. CT of the chest was done today, it clearly showed left suprahilar mass with some postobstructive atelectasis or pneumonia, appearance is very much similar to previous CT of the chest. There was also evidence of emphysema/severe emphysema, her CT of the abdomen and pelvis showed diverticulosis without evidence of diverticulitis. At any rate clearly the patient has mostly chest wall pain, and she could have easily had a hairline fracture of one of her ribs related to her coughing, but no evidence of pulmonary embolism, and no evidence of any significant change from previous CT of the chest nonetheless, patient was admitted, and this consult was initiated patient does describe cough, unable to clear any phlegm, no fever, no chills, no hemoptysis, CBC is relatively normal basic metabolic profile is normal, Renal profile is normal, inflow once a day, influenza B and RSV PCR as well as PCR for COVID-19 are all negative The patient is seen today July 24, 2023 in follow-up on the regular medical floor. She is currently sitting up in bed. Awake and alert in no acute distress. She is maintaining good O2 saturations in the 90s on room air. Her pain is better controlled. She is feeling better today. Follow-up chest x-ray shows no evidence of acute pulmonary disease. Procalcitonin negative at 0.06. She is continued on DuoNeb ventilations, Symbicort. Lovenox for DVT prophylaxis. Antibiotics in the form of ceftriaxone and azithromycin. Objective - Vital Signs Vital signs: Vital Signs Temp 98.1 F 07/24/23 11:58 Pulse 77 07/24/23 11:58 Resp 16 07/24/23 11:58 BP 105/59 07/24/23 11:58 Pulse Ox 90 L 07/24/23 11:58 FiO2 Intake & Output 07/23/23 07/24/23 07/24/23 18:59 06:59 18:59 Weight 62.142 kg Other: Voiding Method Toilet # Voids 3 - Exam General: Revealed a pleasant, oriented 88-year-old female, in no distress, on room air Head: Atraumatic normocephalic Skin: Skin is warm and dry and no rashes or lesions are noted. Eye: Pupils are equal, round and reactive to light, extra-ocular movements are intact; there is normal conjunctiva bilaterally. Ears, nose, mouth and throat: There are moist mucous membranes and no oral lesions. Neck: The neck is supple, there is no tenderness or JVD. Cardiovascular: There is a regular rate and rhythm. No murmur, rub or gallop is appreciated. Respiratory: Diminished breath sound bilaterally no crackles rhonchi or wheezes left-sided chest wall tenderness is noted and patient has exquisite tenderness over the left upper ribs Gastrointestinal: Soft, non-distended, non-tender abdomen without masses or organomegaly noted. There is no rebound or guarding present. Bowel sounds are unremarkable. Back: There is no tenderness to palpation in the midline. There is no obvious deformity. Musculoskeletal: Normal ROM, no tenderness, There is no pedal edema. There is no calf tenderness or swelling. No cords were appreciated. Neurological: CN II-XII intact, Cranial nerves III through XII are intact. There are no obvious motor or sensory deficits. Coordination appears grossly intact. Speech is normal. Psychiatric: Cooperative, appropriate mood & affect, normal judgment. - Labs CBC & Chem 7: 07/23/23 12:07/23/23 12:04 Assessment and Plan Assessment: Chest wall pain, possible left-sided ribs fracture Lung mass highly suspicious for bronchogenic carcinoma status post radiation therapy Severe underlying COPD FEV1 is 0.8% Chronic hypoxic respiratory failure History of multiple pulmonary nodules Doubt postobstructive pneumonia clinically the patient does not have symptoms to suggest pneumonia. Procalcitonin negative at 0.06 Plan: The patient was seen and evaluated Labs and medications reviewed Procalcitonin negative at 0.06. Antibiotics discontinued Cleared for discharge from the pulmonary standpoint Keep her appointment with Dr. Hamilton August 05, 2023 I have personally seen and examined the patient, performed the documentation and the assessment and plan as written. Number of minutes spent on the visit: 10.
--- NOTE | 2023-07-24 15:13 | P.CONS ---
History of Present Illness - Reason for Consult Consult date: 07/24/23 lung mass Requesting physician: Jer Norman - Chief Complaint SOB and CP - History of Present Illness Patient is an 88-year-old female with a significant history of severe COPD and known CHRISTA lung mass which she follows with pulmonology and Dr. Shea of radiation oncology. Consult was placed for lung mass. Patient was noted to have left upper lobe mass which has been growing in size, and the patient initially declined tissue diagnosis, bronchoscopy, and any diagnostic workup. However, after mass was gradually increasing in size she was agreeable to be evaluated by radiation oncology and established care in November 2022. Patient underwent radiation treatment and completed 10 fractions in December, with definite shrinkage in the size of the mass in the left upper lobe. Patient has continued in f/u with rad onc. Patient presented to the ER with complaints of left-sided chest pain over the last couple days that was worsened with coughing. Upon admission CTA chest revealed left suprahilar mass with likely postobstructive atelectasis or pneumonia. 9.4 mm nodule in the right upper lobe which is unchanged from previous study. Super hilar lymph node measuring up to 1.[address] cm[address] abdomen pelvis showed diverticulosis without evidence of diverti culitis. No acute processes otherwise seen on exam. Rocephin and azithromycin started for suspected pneumonia. Blood cultures and sputum culture ordered. Patient is afebrile, SPO2 91% on room air. CBC reviewed, WBC 7.3, hemoglobin 14.4, platelets 293,000. Procalcitonin 0.06, troponin negative. Viral panel negative. At today's visit patient reports having increasing cough, with left chest wall and left lateral chest wall pain and tenderness. Patient denies hemoptysis. Review of Systems 10 point ROS is negative except as stated in the HPI Past Medical History Past Medical History: Cancer Additional Past Medical History / Comment(s): lung CA History of Any Multi-Drug Resistant Organisms: None Reported Additional Past Surgical History / Comment(s): Back surgery Past Psychological History: No Psychological Hx Reported Smoking Status: Former smoker Past Alcohol Use History: None Reported Past Drug Use History: None Reported Medications and Allergies Home Medications Medication Instructions Recorded Confirmed Type Albuterol Inhaler [Ventolin Hfa 2 puff INHALATION RT-QID PRN 07/23/23 07/23/23 History Inhaler] Cyanocobalamin [Vitamin B-12] 500 mcg PO DAILY 07/23/23 07/23/23 History Fluticasone/Vilanterol [Breo 1 puff INHALATION RT-DAILY 07/23/23 07/23/23 History Ellipta 100-25 Mcg Inhalr] guaiFENesin-DM 600/30MG [Mucinex 1 tab PO DAILY 07/23/23 07/23/23 History Dm] Allergies Allergy/AdvReac Type Severity Reaction Status Date / Time No Known Allergies Allergy Verified 07/23/23 14:46 Physical Exam Vitals: Vital Signs Temp Pulse Pulse Resp BP BP Pulse Ox 07/24/23 11:58 98.1 F 77 16 105/59 90 L 07/24/23 11:17 76 07/24/23 11:05 72 07/24/23 08:02 64 07/24/23 07:47 64 07/24/23 07:08 98.4 F 79 16 148/72 91 L 07/24/23 02:00 98.4 F 82 16 92/54 90 L 07/23/23 19:35 98.3 F 80 16 114/68 90 L 07/23/23 19:32 68 07/23/23 19:25 80 16 07/23/23 19:22 64 07/23/23 15:58 98.4 F 60 17 121/72 96 07/23/23 15:28 98.5 F 74 16 130/68 96 07/23/23 15:00 75 16 135/70 96 Intake and Output 07/23/23 07/24/23 07/24/23 22:59 06:59 14:59 Other: Voiding Method Toilet # Voids 3 Weight 62.142 kg - Constitutional General appearance: average body habitus, no acute distress - EENT Eyes: anicteric sclerae, EOMI ENT: hearing grossly normal - Neck Neck: no lymphadenopathy - Respiratory Respiratory: bilateral: CTA - Cardiovascular Rhythm: regular Heart sounds: normal: S1, S2 - Gastrointestinal General gastrointestinal: soft, no tenderness - Integumentary Integumentary: no cyanotic - Neurologic no focal deficits - Musculoskeletal left chest wall and left lateral chest wall tenderness upon palpation - Psychiatric Psychiatric: A&O x's 3 Results CBC & Chem 7: 07/23/23 12:04 03/05/24 12:04 CT scan - abdomen: report reviewed CT scan - chest: report reviewed CT scan - pelvis: report reviewed Assessment and Plan (1) COPD (chronic obstructive pulmonary disease) Current Visit: Yes Status: Acute Priority: High Code(s): J44.9 - CHRONIC OBSTRUCTIVE PULMONARY DISEASE, UNSPECIFIED SNOMED Code(s): 02469378 (2) Pneumonia Current Visit: Yes Status: Acute Priority: High Code(s): J18.9 - P NEUMONIA, UNSPECIFIED ORGANISM SNOMED Code(s): 405329383 (3) Lung mass Current Visit: Yes Status: Acute Priority: High Code(s): R91.8 - OTHER NONSPECIFIC ABNORMAL FINDING OF LUNG FIELD SNOMED Code(s): 207612665 Plan: COPD: Presented to the ER with complaints of left-sided chest pain over the last couple days that was worsened with coughing. Reports having increasing cough, with left chest wall and left lateral chest wall pain and tenderness. Patient denies hemoptysis. -Upon admission CTA chest revealed left suprahilar mass with likely postobstructive atelectasis or pneumonia. 9.4 mm nodule in the right upper lobe which is unchanged from previous study. Super hilar lymph node measuring up to 1.8 cm. Severe emphysema. Rocephin and azithromycin started for suspected pneumonia. Bronchodilators ordered. Blood cultures and sputum culture ordered. Patient is afebrile, SPO2 91% on room air. Procalcitonin 0.06, troponin negative. Viral panel negative. -It appears that chest pain appears to be musculoskeletal in nature based on tenderness noted on exam. May have sustained, hairline fx of rib and/or costochondritis r/t increasing cough -Pulmonology following, will defer management to pulm and IM team CHRISTA lung mass: -Known istory of CHRISTA lung mass which she follows with pulmonology and Dr. Shea of radiation oncology. Patient was noted to have left upper lobe mass which has been growing in size, and the patient initially declined tissue diagnosis, bronchoscopy, and any diagnostic workup. However, after mass was gradually increasing in size she was agreeable to be evaluated by radiation oncology and established care in November 2022. Patient underwent radiation treatment and completed 10 fractions in December, with definite shrinkage in the size of the mass in the left upper lobe. Patient has continued in f/u with rad onc. -Since there has been noted improvement in mass with radiation, and no noted disease progression, it would be reasonable to continue to follow with pulmonology and radiation oncology. If there is concern that disease has progressed patient can be referred to medical oncology at that time for further evaluation/management Pt was updated on POC and was agreeable with the same Dr. attests: I have seen and examined patient, performed H&P, developed impression and plan of care. Discussed with dictator. Agree with documentation, dictated as a scribe
--- NOTE | 2023-07-24 20:09 | P.PN ---
Progress Note - Text Progress Note Date: 07/24/23 Chief Complaint: Left chest wall pain This is a pleasant 88-year-old patient who follows with Dr. Azul. Patient has a left long upper lobe mass that she was following with Dr. Hamilton. Initially did not want any treatment. Subsequently as it was great he she decided agreed to get treatment and started getting radiation treatment back in November 2022. Patient does have home oxygen that she uses on a as needed basis. Also has a cerebral aneurysm behind the right eye that is being followed outpatient. For about 1 week patient been having increasing pain in the left axilla area. Does not cross to the midline of the back. Increasing cough no sputum production. A ppetite is fair. Came in for the same. July 23: Still having cough. Procalcitonin come back low. Diagnosis pneumonia is also doubtful. Probably can be discharged tomorrow. Follow-up with oncology . Patient's chest wall pain is much better. Active Medications Acetaminophen (Acetaminophen Tab 325 Mg Tab) 650 mg PO Q6HR [facility] Last Admin: 07/24/23 18:09 Dose: 650 mg Albuterol/Ipratropium (Ipratropium-Albuterol 3 Ml Neb) 3 ml INHALATION RT-Q4H PRN PRN Reason: shortness of breath Albuterol/Ipratropium (Ipratropium-Albuterol 3 Ml Neb) 3 ml INHALATION RT-QID [facility] Last Admin: 07/24/23 19:36 Dose: 3 ml Budesonide/Formoterol Fumarate (Symbicort 160-4.5 Mcg Inhaler) 2 puff INHALATION RT-BID [facility] Last Admin: 07/24/23 19:36 Dose: Not Given Enoxaparin Sodium (Enoxaparin 40 Mg/0.4 Ml Syringe) 40 mg SQ DAILY [facility] Last Admin: 07/24/23 09:08 Dose: Not Given Gabapentin (Gabapentin 100 Mg Cap) 100 mg PO TID [facility] Last Admin: 07/24/23 15:56 Dose: 100 mg Miscellaneous Information (Pneumonia Protocol Utilized 1 Each Misc) 1 each PO ONCE PRN PRN Reason: Per Protocol Naloxone HCl (Naloxone 0.4 Mg/Ml 1 Ml Vial) 0.2 mg IV Q2M PRN PRN Reason: Opioid Reversal Naproxen (Naproxen 250 Mg Tab) 250 mg PO TID [facility] Last Admin: 07/24/23 15:56 Dose: 250 mg Social history: Smoked a pack for close to 57 years stopped in 16 years ago. Lives with her son and grandson. No alcohol. Physical examination: VITAL SIGNS: 98.2, 86, 16, 107 x 64, 92% room air GENERAL: [Sitting up in bed, not in distress EYES: Pupils equal. Conjunctiva leandro l. HEENT: External appearance of nose and ears normal, oral cavity grossly normal. NECK: JVD not raised; masses not palpable. HEART: First and second heart sounds are normal; no edema. LUNGS: Respiratory rate normal; diminished breath sounds. ABDOMEN: Soft, nontender, liver spleen not palpable, no masses palpable. PSYCH: Alert and oriented x3; mood and affect leandro l. MUSCULOSKELETAL:No Clubbing/cyanosis;muscles-grossly intact. OA INVESTIGATIONS, reviewed in the clinical context: Procalcitonin 0.06-July 23July 5: White count 7.3 hemoglobin 14.4 platelets 293 sodium 142 potassium 4.2 BUN 13 creatinine 0.61 Troponin I less than 0.012 Influenza type A, B, RSV, COVID-19: Not detected EKG tracing personally reviewed by me-normal sinus rhythm. Right bundle Tee block CT chest: Left suprahilar mass with likely postobstructive atelectasis/pneumonia. Severe emphysema colonic diverticulosis. Assessment plan: -Acute postobstructive pneumonia/atelectasis.: Questionable diagnosis IV ceftriaxone Procalcitonin 0.06 -Left chest wall pain. Nothing on the outside. This could be a nerve pain involving from a lung mass.: Better Naproxen 250 mg 2 times daily. Neurontin changed to 3 mg nightly -COPD no prior smoker DuoNeb. Symbicort -Left upper lobe lung cancer. Patient getting radiation treatment. Follows with Dr. Shea, from radiation oncology -Primary osteoarthritis Tylenol as needed -Chronic urine incontinence -DNR per patient wishes If okay with pulmonary will probably discharge tomorrow.
[2023-07-24] MEDS: GABAPENTIN 300 MG CAP PO SCH (20:33)
--- NOTE | 2023-07-25 12:50 | P.CONS ---
History of Present Illness - Reason for Consult Consult date: 07/25/23 Left chest wall pain Requesting physician: Sameer Birmingham - Chief Complaint "My pain has improved" - History of Present Illness Ms. 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 She underwent a course of definitive hypofractionated radiation therapy to 60 Gy in 10 fractions, completing treatment on 11/22/2022. The patient is well-known to me. At an office visit on Saturday she noted a 7-10 day history of worsening left chest wall pain and nonproductive cough, and was found to be tachycardic and tachypneic. Accordingly, I directed her to the EC. CTA chest on 07/23/2023 demonstrated possible postobstructive atelectasis/pneumonia in the left upper lobe but was negative for PE or rib fracture. CT abdomen/pelvis was negative for metastatic disease. She was started on antibiotics and treated with supportive care. Her condition has significantly improved and she is off antibiotics. She is slated for discharge today. Review of Systems as per HPI All systems: negative Constitutional: Denies chills, Denies fever Eyes: denies blurred vision, denies pain Ears, nose, mouth and throat: Denies headache, Denies sore throat Cardiovascular: Denies chest pain, Denies shortness of breath Respiratory: Denies cough Gastrointestinal: Denies abdominal pain, Denies diarrhea, Denies nausea, Denies vomiting Genitourinary: Denies dysuria, Denies hematuria Musculoskeletal: Denies myalgias Integumentary: Denies pruritus, Denies rash Neurological: Denies numbness, Denies weakness Psychiatric: Denies anxiety, Denies depression Endocrine: Denies fatigue, Denies weight change Past Medical History Past Medical History: Cancer Additional Past Medical History / Comment(s): lung CA History of Any Multi-Drug Resistant Organisms: None Reported Additional Past Surgical History / Comment(s): Back surgery Past Psychological History: No Psychological Hx Reported Smoking Status: Former smoker Past Alcohol Use History: None Reported Past Drug Use History: None Reported Medications and Allergies Home Medications Medication Instructions Recorded Confirmed Type Albuterol Inhaler [Ventolin Hfa 2 puff INHALATION RT-QID PRN 07/23/23 07/23/23 History Inhaler] Cyanocobalamin [Vitamin B-12] 500 mcg PO DAILY 07/23/23 07/23/23 History Fluticasone/Vilanterol [Breo 1 puff INHALATION RT-DAILY 07/23/23 07/23/23 History Ellipta 100-25 Mcg Inhalr] Gabapentin [Neurontin] 300 mg PO HS #30 cap 07/25/23 Rx Naproxen [Naprosyn] 250 mg PO BID #60 tab 07/25/23 Rx Allergies Allergy/AdvReac Type Severity Reaction Status Date / Time No Known Allergies Allergy Verified 07/23/23 14:46 Physical Exam Vitals: Vital Signs Temp Pulse Pulse Resp BP Pulse Ox 07/25/23 07:04 98.1 F 87 20 138/64 96 07/25/23 06:01 88 07/25/23 05:51 86 07/25/23 02:00 98 F 91 16 118/70 91 L 07/24/23 19:47 80 07/24/23 19:41 98.2 F 86 16 107/64 92 L 07/24/23 19:36 80 07/24/23 15:09 84 07/24/23 14:59 84 Intake and Output 07/24/23 07/25/23 07/25/23 22:59 06:59 14:59 Other: Voiding Method Toilet # Voids 3 3 - Constitutional appears more comfortable today General appearance: no acute distress - Respiratory Respiratory: negative: prolonged expiration, prolonged inspiration - Musculoskeletal pain localizes to left chest wall lateral to the breast Results CBC & Chem 7: 07/23/23 12:04 07/23/23 12:04 Labs: Microbiology - Last 24 Hours (Table) 07/24/23 09:10 Gram Stain - Preliminary Sputum 07/23/23 14:25 Blood Culture - Preliminary Blood 07/23/23 14:12 Blood Culture - Preliminary Blood Assessment and Plan Assessment: Ms. 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 She underwent a course of definitive hypofractionated radiation therapy to 60 Gy in 10 fractions, completing treatment on 11/22/2022. Plan: The patient's CT imaging is stable and consistent with evolving posttreatment radiation fibrosis. Her pain has improved with conservative measures. In the absence of overt rib fracture, I suspect her condition is due to myositis, either as a sequelae of radiation therapy or due to prolonged coughing. She is okay for discharge from my standpoint. I recommend continued use of NSAIDs as tolerated. She will follow-up with me in [address] chest prior. Dany Shea MD Radiation Oncology Time with Patient: Less than 30
--- NOTE | 2023-07-25 13:08 | P.PN ---
Subjective Progress Note Date: 07/25/23 This is an 88-year-old seen with known history of severe COPD, O2 dependent, not prednisone dependent, patient normally sees me in the office, patient had left upper lobe mass which has been growing in size, and the patient at 1 point did not want any intervention done. She declined tissue diagnosis, declined bronchoscopy, declined any diagnostic workup. However considering the mass was gradually getting bigger in size, I convinced the patient back in November of 2022 to at least have radiation treatment. Patient underwent radiation treatment, and has been doing fairly well with definite shrinkage in the size of the mass in the left upper lobe. Patient continues to follow-up with radiation oncology. And I have not seen this patient since 03/08/2023. At that time I advised the patient to continue albuterol, and continue WIXELA INHUB. Her FEV1 is normally in the range of six 0.8, FEV1/FVC is 46%. In addition to her COPD and presumptive lung cancer, patient had history of previous cerebral aneurysm, and she had chronic hypoxic respiratory failure. Today the patient was seen in the ER with few days history of left-sided chest pain worse upon coughing, and seems to be worse upon applying pressure or palpation of the left sided chest wall. CT of the chest was done today, it clearly showed left suprahilar mass with some postobstructive atelectasis or pneumonia, appearance is very much similar to previous CT of the chest. There was also evidence of emphysema/severe emphysema, her CT of the abdomen and pelvis showed diverticulosis without evidence of diverticulitis. At any rate clearly the patient has mostly chest wall pain, and she could have easily had a hairline fracture of one of her ribs related to her coughing, but no evidence of pulmonary embolism, and no evidence of any significant change from previous CT of the chest nonetheless, patient was admitted, and this consult was initiated patient does describe cough, unable to clear any phlegm, no fever, no chills, no hemoptysis, CBC is relatively normal basic metabolic profile is normal, Renal profile is normal, inflow once a day, influenza B and RSV PCR as well as PCR for COVID-19 are all negative The patient is seen today July 24, 2023 in follow-up on the regular medical floor. She is currently sitting up in bed. Awake and alert in no acute distress. She is maintaining good O2 saturations in the 90s on room air. Her pain is better controlled. She is feeling better today. Follow-up chest x-ray shows no evidence of acute pulmonary disease. Procalcitonin negative at 0.06. She is continued on DuoNeb ventilations, Symbicort. Lovenox for DVT prophylaxis. Antibiotics in the form of ceftriaxone and azithromycin. The patient is seen today July 25, 2023 in follow-up on the regular medical floor. She is sitting up in a chair at the bedside. Awake and alert no acute distress. Having breakfast. She is maintaining good O2 saturations in the 90s on room air. She is afebrile. Hemodynamically stable. Pain is better controlled. Blood culture revealed no growth. Sputum culture revealed no grow th. Continued on DuoNeb ventilations, Symbicort, Lovenox for DVT prophylaxis. Objective - Vital Signs Vital signs: Vital Signs Temp 98.1 F 07/25/23 07:04 Pulse 87 07/25/23 07:04 Resp 20 07/25/23 07:04 BP 138/64 07/25/23 07:04 Pulse Ox 96 07/25/23 07:04 FiO2 Intake & Output 07/24/23 07/25/23 07/25/23 18:59 06:59 18:59 Other: Voiding Method Toilet # Voids 3 3 - Exam General: Revealed an 88-year-old female, in no distress, on room air. Sitting up in a chair. Head: Atraumatic normocephalic Skin: Skin is warm and dry and no rashes or lesions are noted. Eye: Pupils are equal, round and reactive to light, extra-ocular movements are intact; there is normal conjunctiva bilaterally. Ears, nose, mouth and throat: There are moist mucous membranes and no oral lesions. Neck: The neck is supple, there is no tenderness or JVD. Cardiovascular: There is a regular rate and rhythm. No murmur, rub or gallop is appreciated. Respiratory: Diminished breath sound bilaterally no crackles rhonchi or wheezes left-sided chest wall tenderness is noted and patient has exquisite tenderness over the left upper ribs Gastrointestinal: Soft, non-distended, non-tender abdomen without masses or organomegaly noted. There is no rebound or guarding present. Bowel sounds are unremarkable. Back: There is no tenderness to palpation in the midline. There is no obvious deformity. Musculoskeletal: Normal ROM, no tenderness, There is no pedal edema. There is no calf tenderness or swelling. No cords were appreciated. Neurological: CN II-XII intact, Cranial nerves III through XII are intact. There are no obvious motor or sensory deficits. Coordination appears grossly intact. Speech is normal. Psychiatric: Cooperative, appropriate mood & affect, normal judgment. - Labs CBC & Chem 7: 07/23/23 12:04 07/23/23 12:04 Labs: Microbiology - Last 24 Hours (Table) 07/24/23 09:10 Gram Stain - Preliminary Sputum 07/23/23 14:25 Blood Culture - Preliminary Blood 07/23/23 14:12 Blood Culture - Preliminary Blood Assessment and Plan Assessment: Chest wall pain, left-sided ribs fracture ruled out Left upper lobe lung mass highly suspicious for bronchogenic carcinoma status post radiation therapy Severe underlying COPD. CT scan revealed severe centrilobular emphysema Chronic hypoxic respiratory failure oxygen dependent History of multiple pulmonary nodules Doubt postobstructive pneumonia clinically the patient does not have symptoms to suggest pneumonia. Procalcitonin negative at 0.06 Plan: The patient was seen and evaluated Medications reviewed Cleared for discharge from the pulmonary standpoint Continue her home Breo daily and albuterol as needed Keep her appointment with Dr. Hamilton August 05, 2023 May recommend outpatient PET scan This patient was seen independently by the pulmonary nurse practitioner addressing pulmonary issues I have personally seen and examined the patient, performed the documentation and the assessment and plan as written. Number of minutes spent on the visit: 22.
[2023-07-25 13:26] VITALS: BP 137/65; PULSE 90; RESP 18; TEMP 98.6
--- NOTE | 2023-07-25 19:23 | P.DS ---
Providers Date of admission: 07/23/23 19:54 Expected date of discharge: 07/25/23 Attending physician: Sameer Birmingham Consults: 07/23/23 14:12 Consult Physician Routine Consulting Provider: David Hamilton Consult Reason/Comments: Lung mass, pneumonia Do you want consulting provider notified?: Yes 07/23/23 14:13 Consult Physician Routine Consulting Provider: Emir Nowak Consult Reason/Comments: Lung mass Do you want consulting provider notified?: Yes 07/23/23 20:04 Consult Physician Routine Consulting Provider: Dany Shea Consult Reason/Comments: Left lung mass/pain Do you want consulting provider notified?: Yes Primary care physician: [facility] Course: Chief Complaint: Left chest wall pain This is a pleasant 88-year-old patient who follows with Dr. Azul. Patient has a left long upper lobe mass that she was following with Dr. Hamilton. Initially did not want any treatment. Subsequently as it was great he she decided agreed to get treatment and started getting radiation treatment back in November 2022. Patient does have home oxygen that she uses on a as needed basis. Also has a cerebral aneurysm behind the right eye that is being followed outpatient. For about 1 week patient been having increasing pain in the left axilla area. Does not cross to the midline of the back. Increasing cough no sputum production. Appetite is fair. Came in for the same. July 23: Still having cough. Procalcitonin come back low. Diagnosis pneumonia is also doubtful. Probably can be discharged tomorrow. Follow-up with oncology. Patient's chest wall pain is much better. July 24:. Pneumonia not felt to be present. Antibiotic was discontinued. Patient does not want a tissue diagnosis declined in the past. I spoke to Dr. Shea from radiation oncology. He will have the patient follow-up as outpatient. 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 Hamilton. Has some dry cough. Chest wall pain is better controlled. Discussion and discharge planning more than 35 minutes Social history: Smoked a pack for close to 57 years stopped in 16 years ago. Lives with her son and grandson. No alcohol. Physical examination: VITAL SIGNS: 98.6, 90, 18, 137 x 65, 92% room air GENERAL: Sitting up, comfortable EYES: Pupils equal. Conjunctiva leandro l. HEENT: External appearance of nose and ears normal, oral cavity grossly normal. NECK: JVD not raised; masses not palpable. HEART: First and second heart sounds are normal; no edema. LUNGS: Respiratory rate normal; diminished breath sounds. ABDOMEN: Soft, nontender, liver spleen not palpable, no masses palpable. PSYCH: Alert and oriented x3; mood and affect leandro l. MUSCULOSKELETAL:No Clubbing/cyanosis;muscles-grossly intact. OA INVESTIGATIONS, reviewed in the clinical context: Procalcitonin 0.06-July 23July 5: White count 7.3 hemoglobin 14.4 platelets 293 sodium 142 potassium 4.2 BUN 13 creatinine 0.61 Troponin I less than 0.012 Influenza type A, B, RSV, COVID-19: Not detected EKG tracing personally reviewed by me-normal sinus rhythm. Right bundle Tee block CT chest: Left suprahilar mass with likely postobstructive atelectasis/pneumonia. Severe emphysema colonic diverticulosis. Assessment plan: -Acute postobstructive atelectasis.: Pneumonia not present IV ceftriaxone-discontinued Procalcitonin 0.06 -Left chest wall pain. Likely myositis pain from radiation. Naproxen 250 mg 2 times daily. Neurontin 300 mg nightly -COPD-prior smoker DuoNeb. Symbicort -Left upper lobe lung cancer. Patient getting radiation treatment. Follows with Dr. Shea, from radiation oncology. Patient previously has declined tissue diagnosis. -Primary osteoarthritis Tylenol as needed -Chronic urine incontinence -DNR Disposition: Home Plan - Discharge Summary Discharge Rx Participant: No New Discharge Prescriptions: New Naproxen [Naprosyn] 250 mg PO BID #60 tab Gabapentin [Neurontin] 300 mg PO HS #30 cap Continue Albuterol Inhaler [Ventolin Hfa Inhaler] 2 puff INHALATION RT-QID PRN PRN Reason: Shortness Of Breath Fluticasone/Vilanterol [Breo Ellipta 100-25 Mcg Inhalr] 1 puff INHALATION RT- DAILY Cyanocobalamin [Vitamin B-12] 500 mcg PO DAILY Discontinued guaiFENesin-DM 600/30MG [Mucinex Dm] 1 tab PO DAILY Discharge Medication List Albuterol Inhaler [Ventolin Hfa Inhaler] 2 puff INHALATION RT-QID PRN 07/23/23 [History] Cyanocobalamin [Vitamin B-12] 500 mcg PO DAILY 07/23/23 [History] Fluticasone/Vilanterol [Breo Ellipta 100-25 Mcg Inhalr] 1 puff INHALATION RT- DAILY 07/23/23 [History] Gabapentin [Neurontin] 300 mg PO HS #30 cap 07/25/23 [Rx] Naproxen [Naprosyn] 250 mg PO BID #60 tab 07/25/23 [Rx] Follow up Appointment(s)/Referral(s): David Hamilton MD [STAFF PHYSICIAN] - 08/05/23 1:45 pm Tevin Azul MD [Primary Care Provider] - 07/29/23 11:00 am Activity/Diet/Wound Care/Special Instructions: oncology& rad-onc f/u Discharge Disposition: HOME SELF-CARE
== END 2023-07-25 14:07 | disposition home or self-care (01) | DRG 181 ==
LOC: EC 11:30 → 5NMEDONC 15:02 → OBSVTOIN 19:54
PROVIDERS: ADMIT Hospitalist; ATTEND Hospitalist
DX: C34.12 Malignant neoplasm of upper lobe, left bronchus or lung (principal); J96.11 Chronic respiratory failure with hypoxia; J98.11 Atelectasis; I67.1 Cerebral aneurysm, nonruptured; J43.2 Centrilobular emphysema; Z99.81 Dependence on supplemental oxygen; Z66 Do not resuscitate; M19.91 Primary osteoarthritis, unspecified site; N39.498 Other specified urinary incontinence; N28.89 Other specified disorders of kidney and ureter; K57.30 Diverticulosis of large intestine without perforation or abscess without bleeding; I45.10 Unspecified right bundle-branch block; M60.88 Other myositis, other site; T50.995A Adverse effect of other drugs, medicaments and biological substances, initial encounter; Z87.891 Personal history of nicotine dependence; Z79.899 Other long term (current) drug therapy; Z79.51 Long term (current) use of inhaled steroids
CPT/HCPCS: 36415; 71046; 71275; 74177; 80053; 83605; 83735; 84145; 84484; 85025; 85610; 85730; 87040; 87070; 87205; 87449; 87636; 93005; 94640; 96361; 96365; 96368; 96375; 99285

== ENCOUNTER → 2023-10-21 | Outpatient (CLI) | payer MEDICARE, OTHER ==
--- NOTE | 2023-10-22 08:44 | CT ---
EXAMINATION TYPE: CT chest wo con CT DLP: 212.20 mGycm, Automated exposure control for dose reduction was used. DATE OF EXAM: 10/21/2023 12:10 PM COMPARISON: Chest radiograph from same day. Multiple CTs of the chest with most recent on . CLINICAL INDICATION:Female, 88 years old with history of C34.12 Lung cancer; PH[facility], Lung Cancer. TECHNIQUE: Multiple axial images were obtained through the chest. Sagittal and coronal reformats were created for review. Contrast used: mL of (None if empty) Oral contrast used: (None if empty) FINDINGS: Exam is limited by lack of contrast. LUNGS: Similar 7size and bulkiness of the left upper lobe perihilar mass (had intense increased activ ity on PET), now difficult to measure precisely and its morphology is now rather flat and strandy sug gesting progressive resolution. As a reference point, residual somewhat nodular portion anteriorly is now 1.4 x 1.2 cm image 20 series 4, and this same area had been 1.6 x 1.6 cm on the prior CT study. Previous left upper lobe 4.5 mm nodule on the PET/CT (had increased activity on PET) appears smaller/ less conspicuous measuring at most 3 mm currently image 10. An 8 mm nodular density in the lateral right upper lobe above the horizontal fissure image 25 (had in creased activity on PET) remains essentially stable. A somewhat stellate focal groundglass density in the posterior left lower lobe appears unchanged bradley uring about 5 mm images 37 and 38 (and did not show increased activity on PET). No definite new or enlarging nodules. Moderate background emphysema with an upper lobe predominance is again noted. Scattered areas of scar ring in both lungs are again noted. No acute consolidation, pleural effusion, or pneumothorax. AIRWAY: Central airways remain patent. There is again some degree of narrowing of the left upper lobe bronchi, without significant change. MEDIASTINUM/JOSE: Thoracic aorta appears unchanged, mild atherosclerotic calcification and the ascend ing portion is 3.1 cm. No enlarged mediastinal nodes. No definite hilar adenopathy is seen, although assessment is limited without contrast. Heart is normal in size. No pericardial effusion. Pulmonary t runk is nonenlarged. CHEST WALL: Stable and unremarkable. No evidence of axillary adenopathy. UPPER ABDOMEN: No significant abnormality or interval change. Mildly thickened left adrenal without evidence of mass . MUSCULOSKELETAL: Mild degenerative changes of the thoracic spine. No clear evidence of lytic/blastic bony lesion. OTHER: No other significant abnormality. IMPRESSION: 1. size and bulkiness of left upper lobe pulmonary mass is stable. 2. Slight decrease in size of subcentimeter left upper lobe nodule. 3. Stable size of 8 mm right upper lobe nodule. 4. Otherwise stable exam, without evidence of new or enlarging lung nodule or mass. IMPRESSION:
== END | disposition home or self-care (01) ==
LOC: RADCTMAIN 11:40
PROVIDERS: ATTEND Radiology Radiation Oncology
DX: C34.12 Malignant neoplasm of upper lobe, left bronchus or lung (principal); R91.8 Other nonspecific abnormal finding of lung field; R91.1 Solitary pulmonary nodule; Z87.891 Personal history of nicotine dependence
CPT/HCPCS: 71250

== ENCOUNTER → 2024-01-10 | Outpatient (CLI) | payer MEDICARE, OTHER ==
--- NOTE | 2024-01-22 09:21 | PE ---
T10 vertebral body subtle cortical buckling possible endplate deformity series 203 image 68 suggests of superior endplate compression fracture. Further evaluation MRI without contrast recommended. EXAMINATION TYPE: PET CT fusion skull to thigh DATE OF EXAM: 01/12/2024 CLINICAL INDICATION: Lung cancer TECHNIQUE: Following the intravenous administration of 10.83 mCi of F-18 FDG, whole body images are performed from the skull base to the midthigh. Images are reviewed on the computer in the coronal, axial, and sagittal planes. Reconstructed rotating images are created on independent workstation and reviewed on the computer. A non-contrast CT is performed in conjunction with the PET scan. Glucose level 96 mg/dL CT DLP: 304 mGycm, Automated exposure control for dose reduction was used. COMPARISON: CT 07/23/2023, PET/CT 11/16/2022, MRI: None FINDINGS: Mediastinal SUV mean is 2.2. Hepatic parenchyma SUV mean is 2.6. SKULL BASE AND NECK: No suspicious radiotracer activity. CHEST, MEDIASTINUM, AND HILAR REGION: * Right upper lung pulmonary nodule measuring 10 mm Max SUV 7.4., Previously 1.7. * Precarinal lymph node max SUV 5.6 measuring 8 mm * Left upper lung post treatment change max SUV in the region 2.6. * Left superior pulmonary hilum max SUV 3.5. ABDOMEN AND PELVIS: * 2 liver FDG avid lesions the right lateral lesion max SUV 10.5 measuring 15 mm. These are poorly v isualized on noncontrast CT. MUSCULOSKELETAL STRUCTURES: Scattered new FDG avid lesions throughout osseous structures examples include: * Right rib 9 Destructive mass in the rib with cortical erosion soft tissue component measuring 39 x 12 mm Max SUV 13.7 * T9 vertebral body lesions in the pedicles max SUV 12.4 * L4 vertebral body compression deformity with possible superimposed lesion max SUV 11.4 * L2 vertebral body max SUV 16.7. * Right sacrum largest lesion max SUV 18.7 measuring 5.5 x 3.6 cm. There is soft tissue and bony murphy tructive changes. * Left iliac bone max SUV 14.7. * Left posterior acetabulum max SUV 18.9. * Right inferior pubic ramus max SUV 16.4. * Right rib 12 soft tissue mass extending from the the vertebral body max SUV 13.5. * Right transverse process of C3 max SUV 13.[address]: Sclerosis senile plaques bilaterally. Atherosclerosis of intracranial vasculature. Simple a ppearing right renal cyst. Colonic diverticulosis. IMPRESSION: 1. New scattered osseous metastatic disease with bony destructive changes at multiple sites. There i s new liver metastatic disease also present. 2. Increasing metabolic activity in right upper lung pulmonary nodule. 3. Possible pathologic fracture compression fracture of L4 vertebral body further evaluation with MR I recommended as clinically warranted.
== END | disposition home or self-care (01) ==
LOC: RADPETMAIN 11:09
PROVIDERS: ATTEND Radiology Radiation Oncology
DX: C79.51 Secondary malignant neoplasm of bone (principal); C78.7 Secondary malignant neoplasm of liver and intrahepatic bile duct; C34.12 Malignant neoplasm of upper lobe, left bronchus or lung; Z87.891 Personal history of nicotine dependence
CPT/HCPCS: 78815; A9552

== ENCOUNTER 2024-02-22 19:57 | Inpatient (IN) | payer MEDICARE, OTHER ==
--- NOTE | 2024-02-22 20:06 | ED ---
Weakness HPI - General Chief complaint: Recheck/Abnormal Lab/Rx Stated complaint: dehydration Time Seen by Provider: 02/22/24 20:05 Source: family, RN notes reviewed, old records reviewed, Caregiver Mode of arrival: wheelchair Limitations: no limitations - History of Present Illness Initial comments: This is a 88-year-old female coming in for symptoms of dehydration. Patient will be brought in for signs and symptoms of dehydration to the ER today for evaluation patient is having trouble eating and drinking patient has known cancer MD Complaint: generalized weakness, lack of energy, difficulty walking -: days(s) Location: generalized Severity: severe Severity scale (1-10): 9 Consistency: constant Improves with: none Worsens with: none Context: history of similar Associated Symptoms: denies other symptoms - Related Data Home Medications Medication Instructions Recorded Confirmed Albuterol Inhaler [Ventolin Hfa 1 - 2 puff INHALATION RT-QID PRN 07/23/23 10/0 11/10 Inhaler] Cyanocobalamin [Vitamin B-12] 500 mcg PO DAILY 07/23/23 02/23/24 guaiFENesin [Mucinex] 600 mg PO Q3D 02/23/24 02/23/24 Previous Rx's Medication Instructions Recorded Doxycycline [Vibramycin] 100 mg PO BID #6 cap 02/26/24 HYDROcodone/APAP 10-325MG [[place] 0.5 tab PO Q4HR PRN #0 02/26/24 10-325] Ipratropium-Albuterol Nebulize 3 ml INHALATION RT-QID #120 each 02/26/24 [Duoneb 0.5 mg-3 mg/3 ml Soln] Sennosides-Docusate Sodium 1 each PO BID #60 tab 02/26/24 [Senokot-S] Allergies Allergy/AdvReac Type Severity Reaction Status Date / Time No Known Allergies Allergy Verified 02/23/24 10:53 Review of Systems ROS Statement: Those systems with pertinent positive or pertinent negative responses have been documented in the HPI. ROS Other: All systems not noted in ROS Statement are negative. Past Medical History Past Medical History: Cancer Additional Past Medical History / Comment(s): lung CA History of Any Multi-Drug Resistant Organisms: None Reported Additional Past Surgical History / Comment(s): Back surgery Past Psychological History: No Psychological Hx Reported Smoking Status: Former smoker Past Alcohol Use History: None Reported Past Drug Use History: None Reported General Exam Limitations: no limitations General appearance: alert, in no apparent distress, anxious Head exam: Present: atraumatic, normocephalic, normal inspection Eye exam: Present: normal appearance, PERRL, EOMI. Absent: scleral icterus, conjunctival injection, periorbital swelling ENT exam: Present: normal exam, mucous membranes moist Neck exam: Present: normal inspection. Absent: tenderness, meningismus, lymphadenopathy Respiratory exam: Present: normal lung sounds bilaterally. Absent: respiratory distress, wheezes, rales, rhonchi, stridor Cardiovascular Exam: Present: normal rhythm, tachycardia, normal heart sounds. Absent: systolic murmur, diastolic murmur, rubs, gallop, clicks GI/Abdominal exam: Present: soft, normal bowel sounds. Absent: distended, tenderness, guarding, rebound, rigid Extremities exam: Present: normal inspection, full ROM, normal capillary refill. Absent: tenderness, pedal edema, joint swelling, calf tenderness Back exam: Present: normal inspection Neurological exam: Present: alert, oriented X3, CN II-XII intact Psychiatric exam: Present: normal affect, normal mood Skin exam: Present: warm, dry, intact, normal color. Absent: rash Course Vital Signs 02/22/24 02/22/24 02/22/24 20:01 22:55 23:22 Temperature 98.5 F Pulse Rate 119 H 85 111 H Respiratory 20 20 Rate Blood Pressure 111/71 108/76 O2 Sat by Pulse 94 L 97 Oximetry 02/23/24 02/23/24 02/23/24 00:00 03:04 06:25 Temperature Pulse Rate 98 87 88 Respiratory 20 16 16 Rate Blood Pressure 106/70 92/58 109/55 O2 Sat by Pulse 97 90 L 93 L Oximetry - Reevaluation(s) Reevaluation #1: 02/22/24 20:49 Medical records reviewed Reevaluation #2: 02/22/24 20:49 Patient symptoms unchanged Reevaluation #3: 02/22/24 20:49 Patient informed of results questions answered Reevaluation #4: Was pt. sent in by a medical professional or institution (, PA, POWER CHISEL OPERATOR, urgent care, hospital, or senior care...) When possible be specific @ -no Did you speak to anyone other than the patient for history (EMS, parent, family, police, friend...)? What history was obtained from this source @ -no Did you review nursing and triage notes (agree or disagree)? Why? @ -agree Are old charts reviewed (outside hosp., previous admission, EMS record, old EKG, old radiological studies, urgent care reports/EKG's, senior care records)? Report findings @ -yes Differential Diagnosis (chest pain, altered mental status, abdominal pain women, abdominal pain men, vaginal bleeding, weakness, fever, dyspnea, syncope, headache, dizziness, GI bleed, back pain, seizure, CVA, palpatations, mental health, musculoskeletal)? @ -prior EKG interpreted by me (3pts min.). @ -yes X-rays interpreted by me (1pt min.). @ -no CT interpreted by me (1pt min.). @ -no U/S interpreted by me (1pt. min.). @ -no What testing was considered but not performed or refused? (CT, X-rays, U/S, labs)? Why? @ -none What meds were considered but not given or refused? Why? @ -none Did you discuss the management of the patient with other professionals (professionals i.e. , PA, POWER CHISEL OPERATOR, lab, RT, psych nurse, social studies department chair, theatrical performer, teacher, chief scientific officer, registered nurse hh case manager)? Give summary @ -no Was smoking cessation discussed for >3mins.? @ -no Was critical care preformed (if so, how long)? @ -yes31 Were there social determinants of health that impacted care today? How? (Homele ssness, low income, unemployed, alcoholism, drug addiction, transportation, low edu. Level, literacy, decrease access to med. care, fci, rehab)? @ -none Was there de-escalation of care discussed even if they declined (Discuss DNR or withdrawal of care, Hospice)? DNR status @ -no What co-morbidities impacted this encounter? (DM, HTN, Smoking, COPD, CAD, Cancer, CVA, ARF, Chemo, Hep., AIDS, mental health diagnosis, sleep apnea, morbid obesity)? @ -none Was patient admitted / discharged? Hospital course, mention meds given and route, prescriptions, significant lab abnormalities, going to OR and other pertinent info. @ - 88 female to ER with respiratory distress pneumonia lung cancer with m etastasis Admitted Undiagnosed new problem with uncertain prognosis? @ -no Drug Therapy requiring intensive monitoring for toxicity (Heparin, Nitro, Insulin, Cardizem)? @ -no Were any procedures done? @ -no Diagnosis/symptom? @ -Respiratory distress lung cancer with metastasis Acute, or Chronic, or Acute on Chronic? @ -Acute Uncomplicated (without systemic symptoms) or Complicated (systemic symptoms)? @ -Complicated Side effects of treatment? @ -no Exacerbation, Progression, or Severe Exacerbation? @ -exacerbation Poses a threat to life or bodily function? How? (Chest pain, [place], [place], pneumonia, PE, COPD, DKA, ARF, appy, cholecystitis, CVA, Diverticulitis, Homicidal, Suicidal, threat to staff... and all critical care pts) @ -yes extremes of age 1002/29/24 22:25 Reevaluation #5: Differential Weakness: Hypoglycemia, shock, sepsis, hyponatremia, anemia, infection, [place], ETOH, adverse medicine reaction, overdose, stroke, this is not meant to be an all-inclusive list. - Consultations Consultation #1: Spoke with admitting physicians who agreed to admit this patient EKG Findings - EKG Comments: EKG Findings:: EKG is sinus 98 NC 132 QRS 126 QTc 436 - EKG Results: EKG: interpreted by VALERIO Medical Decision Making - Medical Decision Making 88 female to ER with respiratory distress pneumonia lung cancer with metastasis - Lab Data Result diagrams: 02/23/24 05:38 02/23/24 05:38 Lab Results 02/22/24 02/22/24 02/22/24 Range/Units 20:51 20:51 20:51 WBC 5.9 (3.8-10.6) k/uL RBC 4.16 (3.80-5.40) m/uL Hgb 12.1 (11.4-16.0) gm/dL Hct 36.7 (34.0-46.0) % MCV 88.2 (80.0-100.0) fL MCH 29.2 (25.0-35.0) pg MCHC 33.0 (31.0-37.0) g/dL RDW 14.2 (11.5-15.5) % Plt Count 198 (150-450) k/uL MPV 7.5 Neutrophils % 80 % Lymphocytes % 2 % Monocytes % 11 % Eosinophils % 2 % Basophils % 0 % Neutrophils # 4.7 (1.3-7.7) k/uL Lymphocytes # 0.1 L (1.0-4.8) k/uL Monocytes # 0.6 (0-1.0) k/uL Eosinophils # 0.1 (0-0.7) k/uL Basophils # 0.0 (0-0.2) k/uL PT 10.9 (10.0-12.5) sec INR 1.0 (<1.2) APTT 24.8 (22.0-30.0) sec Sodium (137-145) mmol/L Potassium (3.5-5.1) mmol/L Chloride (98-107) mmol/L Carbon Dioxide (22-30) mmol/L Anion Gap mmol/L BUN (7-17) mg/dL Creatinine (0.52-1.04) mg/dL Est GFR (CKD-EPI)AfAm (>60 ml/min/1.73 sqM) Est GFR (CKD-EPI)NonAf (>60 ml/min/1.73 sqM) Glucose (74-99) mg/dL Plasma Lactic Acid [place] (0.7-2.0) mmol/L Calcium (8.4-10.2) mg/dL Phosphorus (2.5-4.5) mg/dL Magnesium (1.6-2.3) mg/dL Total Bilirubin (0.2-1.3) mg/dL AST (14-36) U/L ALT (4-34) U/L Alkaline Phosphatase (38-126) U/L Troponin I (0.000-0.034) ng/mL NT-Pro-B Natriuret Pep pg/mL Total Protein (6.3-8.2) g/dL Albumin (3.5-5.0) g/dL TSH (0.465-4.680) mIU/L Urine Color Colorless Urine Appearance Clear (Clear) Urine pH 6.5 (5.0-8.0) Ur Specific [place] 1.009 (1.001-1.035) Urine Protein Negative (Negative) Urine Glucose (UA) Negative (Negative) Urine Ketones 1+ H (Negative) Urine Blood Negative (Negative) Urine Nitrite Negative (Negative) Urine Bilirubin Negative (Negative) Urine Urobilinogen <2.0 (<2.0) mg/dL Ur Leukocyte Esterase Trace H (Negative) Urine RBC 1 (0-5) /hpf Urine WBC 7 H (0-5) /hpf Ur Squamous Epith Cells 2 (0-4) /hpf Amorphous Sediment Rare H (None) /hpf Urine Bacteria Few H (None) /hpf Urine Mucus Occasional H (None) /hpf 02/22/24 02/22/24 02/22/24 Range/Units 20:51 20:51 20:51 WBC (3.8-10.6) k/uL RBC (3.80-5.40) m/uL Hgb (11.4-16.0) gm/dL Hct (34.0-46.0) % MCV (80.0-100.0) fL MCH (25.0-35.0) pg MCHC (31.0-37.0) g/dL RDW (11.5-15.5) % Plt Count (150-450) k/uL MPV Neutrophils % % Lymphocytes % % Monocytes % % Eosinophils % % Basophils % % Neutrophils # (1.3-7.7) k/uL Lymphocytes # (1.0-4.8) k/uL Monocytes # (0-1.0) k/uL Eosinophils # (0-0.7) k/uL Basophils # (0-0.2) k/uL PT (10.0-12.5) sec INR (<1.2) APTT (22.0-30.0) sec Sodium 132 L (137-145) mmol/L Potassium 3.8 (3.5-5.1) mmol/L Chloride 101 (98-107) mmol/L Carbon Dioxide 28 (22-30) mmol/L Anion Gap 3 mmol/L BUN 12 (7-17) mg/dL Creatinine 0.51 L (0.52-1.04) mg/dL Est GFR (CKD-EPI)AfAm >90 (>60 ml/min/1.73 sqM) Est GFR (CKD-EPI)NonAf 88 (>60 ml/min/1.73 sqM) Glucose 105 H (74-99) mg/dL Plasma Lactic Acid [place] 1.0 (0.7-2.0) mmol/L Calcium 8.8 (8.4-10.2) mg/dL Phosphorus 2.7 (2.5-4.5) mg/dL Magnesium 1.8 (1.6-2.3) mg/dL Total Bilirubin 0.7 (0.2-1.3) mg/dL AST 20 (14-36) U/L ALT 10 (4-34) U/L Alkaline Phosphatase 91 (38-126) U/L Troponin I <0.012 (0.000-0.034) ng/mL NT-Pro-B Natriuret Pep 176 pg/mL Total Protein 5.6 L (6.3-8.2) g/dL Albumin 3.2 L (3.5-5.0) g/dL TSH 0.869 (0.465-4.680) mIU/L Urine Color Urine Appearance (Clear) Urine pH (5.0-8.0) Ur Specific [place] (1.001-1.035) Urine Protein (Negative) Urine Glucose (UA) (Negative) Urine Ketones (Negative) Urine Blood (Negative) Urine Nitrite (Negative) Urine Bilirubin (Negative) Urine Urobilinogen (<2.0) mg/dL Ur Leukocyte Esterase (Negative) Urine RBC (0-5) /hpf Urine WBC (0-5) /hpf Ur Squamous Epith Cells (0-4) /hpf Amorphous Sediment (None) /hpf Urine Bacteria (None) /hpf Urine Mucus (None) /hpf - EKG Data -: EKG Interpreted by Me Critical Care Time Critical Care Time: Yes Total Critical Care Time: 31 Disposition Clinical Impression: Chronic hypoxic respiratory failure, COPD (chronic obstructive pulmonary disease), Metastatic lung cancer (metastasis from lung to other site), Lung mass, Pneumonia, Dysphagia, Pain due to malignant neoplasm metastatic to bone Disposition: ADMITTED IP TO THIS HOSP Condition: Serious Is patient prescribed a controlled substance at d/c from ED?: No Time of Disposition: 22:00
[2024-02-22] MEDS: SODIUM CHLORIDE 0.9% 1,000 ML IV STA (20:45)
[2024-02-22 21:13] LABS: Basophils % (A) 0 %; Eosinophils # (A) 0.1 k/uL (0-0.7); Eosinophils % (A) 2 %; HCT 36.7 % (34.0-46.0); HGB 12.1 gm/dL (11.4-16.0); Lymphocytes # (A) 0.1 k/uL (1.0-4.8); Lymphocytes % (A) 2 %; MCH 29.2 pg (25.0-35.0); MCV 88.2 fL (80.0-100.0); Mean Platelet Volume 7.5; Monocytes # (A) 0.6 k/uL (0-1.0); Monocytes % (A) 11 %; Neutrophils # (A) 4.7 k/uL (1.3-7.7); Neutrophils % (A) 80 %; Platelet Count 198 k/uL (150-450); RBC 4.16 m/uL (3.80-5.40); RDW 14.2 % (11.5-15.5); WBC 5.9 k/uL (3.8-10.6)
[2024-02-22 21:31] LABS: ALT 10 U/L (4-34); AST 20 U/L (14-36); African American GFR (CKD) >90 (>60 ml/min/1.73 sqM); Albumin 3.2 g/dL (3.5-5.0); Alkaline Phosphatase 91 U/L (38-126); Anion Gap 3 mmol/L; Blood Urea Nitrogen 12 mg/dL (7-17); Calcium 8.8 mg/dL (8.4-10.2); Carbon Dioxide 28 mmol/L (22-30); Chloride 101 mmol/L (98-107); Glucose 105 mg/dL (74-99); Magnesium 1.8 mg/dL (1.6-2.3); Non-African American GFR(CKD) 88 (>60 ml/min/1.73 sqM); Phosphorus 2.7 mg/dL (2.5-4.5); Potassium 3.8 mmol/L (3.5-5.1); Sodium 132 mmol/L (137-145); Total Bilirubin 0.7 mg/dL (0.2-1.3); Total Protein 5.6 g/dL (6.3-8.2)
[2024-02-22 21:38] LABS: NT-Pro-B-Type Natriuretic Pept 176 pg/mL
[2024-02-22 21:50] LABS: Partial Thromboplastin Time 24.8 sec (22.0-30.0); Prothrombin Time 10.9 sec (10.0-12.5)
[2024-02-22] MEDS ORDERED: NALOXONE 0.4 MG/ML 1 ML VIAL IV PRN (22:03)
[2024-02-22] MEDS ORDERED: ONDANSETRON 4 MG/2 ML VIAL IVP PRN ×2 (22:03→22:05)
[2024-02-22] MEDS: HYDROmorphone 1 MG/ML 1 ML SYRINGE IVP STA (22:22)
[2024-02-22] MEDS: DEXTROSE 5%-0.45% NACL 1,000 ML IV ONE (22:27)
[2024-02-22] MEDS: PANTOPRAZOLE 40 MG/10 ML VIAL IV SCH (22:36)
[2024-02-22] MEDS: ALBUTEROL NEBULIZED 7.5 MG, IPRATROPIUM NEBULIZED 0.5 MG, SODIUM CHLORIDE 0.9% NEBULIZ ... INHALATION ONE (22:54)
[2024-02-22 23:22] LABS: Amorphous Sediment,Urine Rare /hpf; Appearance,Urine Clear (Clear); Bacteria,Urine Few /hpf; Bilirubin,Urine Negative (Negative); Blood,Urine Negative (Negative); Color,Urine Colorless; Glucose,Urine (UA) Negative (Negative); Ketones,Urine 1+ (Negative); Leukocyte Esterase,Urine Trace (Negative); Mucus,Urine Occasional /hpf; Nitrite,Urine Negative (Negative); PH, Urine 6.5 (5.0-8.0); Protein,Urine Negative (Negative); RBC,Urine 1 /hpf (0-5); Specific Gravity,Urine 1.009 (1.001-1.035); Squamous Epithelial Cell,Urine 2 /hpf (0-4); Urobilinogen,Urine <2.0 mg/dL (<2.0); WBC,Urine 7 /hpf (0-5)
[2024-02-22] MEDS: HYDROmorphone 1 MG/ML 1 ML SYRINGE IVP PRN (23:23)
[2024-02-22] MEDS: SODIUM CHLORIDE 0.9% 500 ML 500 ML IV STA (23:25)
[2024-02-23 05:54] LABS: Basophils % (A) 0 %; Eosinophils # (A) 0.1 k/uL (0-0.7); Eosinophils % (A) 3 %; HCT 32.8 % (34.0-46.0); HGB 10.9 gm/dL (11.4-16.0); Lymphocytes # (A) 0.2 k/uL (1.0-4.8); Lymphocytes % (A) 4 %; MCH 29.4 pg (25.0-35.0); MCHC 33.3 g/dL (31.0-37.0); MCV 88.4 fL (80.0-100.0); Mean Platelet Volume 8.8; Monocytes # (A) 0.6 k/uL (0-1.0); Monocytes % (A) 13 %; Neutrophils # (A) 3.6 k/uL (1.3-7.7); Neutrophils % (A) 77 %; Platelet Count 171 k/uL (150-450); RBC 3.71 m/uL (3.80-5.40); RDW 14.5 % (11.5-15.5); WBC 4.7 k/uL (3.8-10.6)
[2024-02-23 06:08] LABS: ALT 8 U/L (4-34); AST 17 U/L (14-36); African American GFR (CKD) >90 (>60 ml/min/1.73 sqM); Albumin 2.6 g/dL (3.5-5.0); Alkaline Phosphatase 76 U/L (38-126); Anion Gap 2 mmol/L; Blood Urea Nitrogen 9 mg/dL (7-17); Calcium 8.1 mg/dL (8.4-10.2); Carbon Dioxide 29 mmol/L (22-30); Chloride 102 mmol/L (98-107); Glucose 116 mg/dL (74-99); Magnesium 1.8 mg/dL (1.6-2.3); Non-African American GFR(CKD) 86 (>60 ml/min/1.73 sqM); Phosphorus 3.5 mg/dL (2.5-4.5); Potassium 3.6 mmol/L (3.5-5.1); Sodium 133 mmol/L (137-145); Total Bilirubin 0.6 mg/dL (0.2-1.3); Total Protein 4.9 g/dL (6.3-8.2)
--- NOTE | 2024-02-23 14:47 | P.CONS ---
History of Present Illness - Reason for Consult Consult date: 02/23/24 Lung Cancer - Chief Complaint Weakness, pain - History of Present Illness Ms. Patricia is an 88-year-old woman who with a past medical history significant for metastatic lung cancer presenting with weakness and dehydration. With regards to her lung cancer treatment, she underwent 10 fractions of radiation therapy from October to November of 2022 for suspected stage IIA lung cancer of the left upper lobe (she deferred on biopsy at this time). She developed progressive right flank and back pain or MRI of the spine in December 2023 noted concern for osseous metastases. PET/CT on 01/10/2024 noted FDG avid lesion in the right upper lung along with precarinal lymphadenopathy, liver metastases, and osseous metastases to the lumbar/thoracic spine and ninth and 12th right ribs. She underwent 5 fractions of palliative radiation to the sacrum and left lumbar spine in December 2023 along with palliative radiation to the ninth and 12th ribs in January 2024. 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 We reviewed this on 02/20/2024 with plan to try capmatinib 400 mg twice daily. Since her visit, she has had progressive weakness with decreased appetite and pain. Heart rate on initial presentation was 119 and was otherwise hemodynamically stable and afebrile. CBC revealed no cytopenias with CMP noting sodium of 132. Creatinine and liver function were within normal limits. Troponin was negative. Urinalysis revealed 1+ ketones with trace leukocyte esterase and 7 WBCs. Few urine bacteria and urine mucus was also present with rare amorphous sediment. She did receive 1.5 L bolus of normal saline in addition to Dilaudid 1 mg IV x 1 and albuterol/ipratropium breathing treatment. She was admitted for additional management. She has required Dilaudid 1 mg IV x 2 since admission. She notes significant improvement in pain since starting IV Dilaudid. She continues to have trouble swallowing pills, but denies any odynophagia, fevers, or chills. Water is being swallowed without any complications. Review of Systems 14 point review of systems was conducted pertinent positives and negatives as noted per HPI. Past Medical History Past Medical History: Cancer, COPD Additional Past Medical History / Comment(s): lung CA History of Any Multi-Drug Resistant Organisms: None Reported Additional Past Surgical History / Comment(s): Back surgery Past Psychological History: No Psychological Hx Reported Smoking Status: Former smoker Past Alcohol Use History: None Reported Past Drug Use History: None Reported Medications and Allergies Home Medications Medication Instructions Recorded Confirmed Type Albuterol Inhaler [Ventolin Hfa 1 - 2 puff INHALATION RT-QID PRN 07/23/23 02/23/24 History Inhaler] Cyanocobalamin [Vitamin B-12] 500 mcg PO DAILY 07/23/23 02/23/24 History Albuterol Nebulized [Ventolin 2.5 mg INHALATION RT-TID 02/23/24 02/23/24 History Nebulized] HYDROcodone/APAP 10-325MG [[place] 0.5 tab PO Q4HR 02/23/24 02/23/24 History 10-325] guaiFENesin [Mucinex] 600 mg PO Q3D 02/23/24 02/23/24 History Allergies Allergy/AdvReac Type Severity Reaction Status Date / Time No Known Allergies Allergy Verified 02/23/24 10:53 Physical Exam Vitals: Vital Signs Temp Pulse Pulse Resp BP BP Pulse Ox 02/23/24 08:06 98.6 F 96 24 123/68 92 L 02/23/24 06:25 88 16 109/55 93 L 02/23/24 03:04 87 16 92/58 90 L 02/23/24 00:00 98 20 106/70 97 02/22/24 23:22 111 H 20 108/76 97 02/22/24 22:55 85 02/22/24 20:01 98.5 F 119 H 20 111/71 94 L Intake and Output 02/22/24 02/23/24 02/23/24 22:59 06:59 14:59 Other: Weight 51.71 kg 51.71 kg - Constitutional General appearance: cooperative, no acute distress - EENT Eyes: EOMI - Respiratory Nonlabored breathing - Cardiovascular Warm and well-perfused - Gastrointestinal General gastrointestinal: no distended, soft - Integumentary Integumentary: no rash - Neurologic Neurologic: CNII-XII intact - Psychiatric Psychiatric: A&O x's 3 Results CBC & Chem 7: 02/23/24 05:38 02/23/24 05:38 Labs: Abnormal Lab Results - Last 24 Hours (Table) 02/22/24 02/22/24 02/22/24 Range/Units 20:51 20:51 20:51 RBC (3.80-5.40) m/uL Hgb (11.4-16.0) gm/dL Hct (34.0-46.0) % Lymphocytes # 0.1 L (1.0-4.8) k/uL Sodium 132 L (137-145) mmol/L Creatinine 0.51 L (0.52-1.04) mg/dL Glucose 105 H (74-99) mg/dL Calcium (8.4-10.2) mg/dL Total Protein 5.6 L (6.3-8.2) g/dL Albumin 3.2 L (3.5-5.0) g/dL Urine Ketones 1+ H (Negative) Ur Leukocyte Esterase Trace H (Negative) Urine WBC 7 H (0-5) /hpf Amorphous Sediment Rare H (None) /hpf Urine Bacteria Few H (None) /hpf Urine Mucus Occasional H (None) /hpf 02/23/24 02/23/24 Range/Units 05:38 05:38 RBC 3.71 L (3.80-5.40) m/uL Hgb 10.9 L (11.4-16.0) gm/dL Hct 32.8 L (34.0-46.0) % Lymphocytes # 0.2 L (1.0-4.8) k/uL Sodium 133 L (137-145) mmol/L Creatinine (0.52-1.04) mg/dL Glucose 116 H (74-99) mg/dL Calcium 8.1 L (8.4-10.2) mg/dL Total Protein 4.9 L (6.3-8.2) g/dL Albumin 2.6 L (3.5-5.0) g/dL Urine Ketones (Negative) Ur Leukocyte Esterase (Negative) Urine WBC (0-5) /hpf Amorphous Sediment (None) /hpf Urine Bacteria (None) /hpf Urine Mucus (None) /hpf Assessment and Plan (1) Metastatic lung cancer (metastasis from lung to other site) Current Visit: Yes Status: Acute Code(s): C34.90 - MALIGNANT NEOPLASM OF UNSP PART OF UNSP BRONCHUS OR LUNG SNOMED Code(s): 85670164 (2) Pain due to malignant neoplasm metastatic to bone Current Visit: Yes Status: Acute Code(s): G89.3 - NEOPLASM RELATED PAIN (A CUTE) (CHRONIC); C79.51 - SECONDARY MALIGNANT NEOPLASM OF BONE SNOMED Code(s): 989445711 (3) Dysphagia Current Visit: Yes Status: Acute Code(s): R13.10 - DYSPHAGIA, UNSPECIFIED SNOMED Code(s): 26216217 Plan: #Weakness, pain -Due to metastatic lung cancer -She did receive palliative radiation to the lumbar spine/sacrum with 5 fractions in December 2023 and has received palliative radiation to the ninth and 12th ribs in January 2024 -Continues to have pain in spite of this with no relief from [place] 5/325 every 4 hours as needed -Continue Dilaudid 1 mg IV every 3 hours as needed for breakthrough pain -Based on her IV Dilaudid requirements over the next 24 hours, we will plan on transitioning to fentanyl patch #Dysphagia -Not clear if this is due to malignancy or possible side effect of radiation -We will discuss this with radiation oncology #Metastatic lung cancer -Treated for primary stage IIA lung cancer of the left upper lobe with radiation therapy from October to November 2022 -PET/CT on 01/10/2024 noted FDG avid lesion in the right upper lung, mediastinal lymphadenopathy, liver, and bone concerning for metastatic lung cancer -Circulating tumor DNA analysis noted MET exon 14 skipping mutation -Current plan is to try capmatinib 400 mg twice daily with prior authorization approved -Once we physically obtain the medication, this can be started Bull Clements MD
[2024-02-23] MEDS: IPRATROPIUM-ALBUTEROL 3 ML NEB INHALATION PRN (15:05)
--- NOTE | 2024-02-23 20:55 | P.HPIM ---
History of Present Illness H&P Date: 02/23/24 Chief Complaint: Failure to thrive This is a pleasant 88-year-old patient who follows with VIN Hendricks,/Dr. Hendrix patient has a left long upper lobe mass that she was following with Dr. Hamilton. Initially did not want any treatment. Subsequently she decided agreed to get treatment and started getting radiation treatment back in November 2022. Patient does have home oxygen that she uses on a as needed basis. Also has a cerebral aneurysm behind the right eye that is being followed outpatient. Per oncology notes of Dr. Mark Clements: Ms. Patricia is an 88-year-old woman who with a past medical history significant for metastatic lung cancer presenting with weakness and dehydration. With regards to her lung cancer treatment, she underwent 10 fractions of radiation therapy from October to November of 2022 for suspected stage IIA lung cancer of the left upper lobe (she deferred on biopsy at this time). She developed progressive right flank and back pain or MRI of the spine in December 2023 noted concern for osseous metastases. PET/CT on 01/10/2024 noted FDG avid lesion in the right upper lung along with precarinal lymphadenopathy, liver metastases, and osseous metastases to the lumbar/thoracic spine and ninth and 12th right ribs. She underwent 5 fra ctions of palliative radiation to the sacrum and left lumbar spine in December 2023 along with palliative radiation to the ninth and 12th ribs in January 2024. 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 We reviewed this on 02/20/2024 with plan to try capmatinib 400 mg twice daily. She now presented to the ER because increasing shortness of breath. Increasing pain in the right hip. Very poor appetite. Constipated. Patient does have home oxygen. Just about able to walk a few steps. Family was considering hospice including the patient. But earlier today had a discussion with Dr. Alves from oncology. Will be trying the medication above. Review of systems: GEN.: Tired, poor appetite EYES: None HEENT: None NECK: None RESPIRATORY: Short of breath CARDIOVASCULAR: None GASTROINTESTINAL: Constipation GENITOURINARY: Urinary incontinence MUSCULOSKELETAL: Especially right hip pain LYMPHATICS: None HEMATOLOGICAL: None PSYCHIATRY: None NEUROLOGICAL: None Social history: Smoked a pack for close to 57 years stopped in 16 years ago. Lives with her son and grandson. No alcohol. Physical examination: VITAL SIGNS: 99.2, 96, 16, 136 per 74, 91% room air GENERAL: Sitting up in bed, short of breath, muscle wasting tired EYES: Pupils equal. Conjunctiva leandro l. HEENT: External appearance of nose and ears normal, oral cavity grossly normal. NECK: JVD not raised; masses not palpable. HEART: First and second heart sounds are normal; no edema. LUNGS: Respiratory rate increased, diminished breath sounds. ABDOMEN: Soft, nontender, liver spleen not palpable, no masses palpable. PSYCH: Alert and oriented x3; mood and affect anxious MUSCULOSKELETAL:No Clubbing/cyanosis;muscles-grossly intact. OA. Loss of muscle mass subcutaneous fat from the bones NEUROLOGICAL: Cranial nerves grossly intact; no facial asymmetry, power and sensation grossly intact. LYMPHATICS: No lymph nodes palpable in the axilla and neck INVESTIGATIONS, reviewed in the clinical context: February 22: White count 4.7 hemoglobin 10.9 platelets 171 sodium 133 potassium 3.6 creatinine 0.54 albumin 2.9 Assessment plan: -Acute medical asthenia including clinical dehydration weakness stemming from uncontrolled underlying metastatic cancer -Metastatic bone pain especially in the right hip. IV Dilaudid. -COPD-prior smoker DuoNeb. -Normocytic anemia of underlying malignancy Check B12 folate iron studies - metastatic lung cancer presenting with weakness and dehydration. With regards to her lung cancer treatment, she underwent 10 fractions of radiation therapy from October to November of 2022 for suspected stage IIA lung cancer of the left upper lobe (she deferred on biopsy at this time). She developed progressive right flank and back pain or MRI of the spine in December 2023 noted concern for osseous metastases. PET/CT on 01/10/2024 noted FDG avid lesion in the right upper lung along with precarinal lymphadenopathy, liver metastases, and osseous metastases to the lumbar/thoracic spine and ninth and 12th right ribs. She underwent 5 fractions of palliative radiation to the sacrum and left lumbar spine in December 2023 along with palliative radiation to the ninth and 12th ribs in January 2024. 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 Oncology reviewed this on 02/20/2024 with plan to try capmatinib 400 mg twice daily. -Primary osteoarthritis Tylenol as needed -Chronic urine incontinence -Anorexia from underlying malignancy Add Marinol. -Severe protein calorie malnutrition from underlying malignancy with poor appetite Food supplements. Consult dietitian. -Chronic hypoxic respiratory failure from underlying emphysema and lung cancer Has home oxygen -DNR -Medical power of employment law attorney, patient's daughter Tash Care was discussed at length with the patient and family at the bedside. Told her daughters will bring in smoothies food-based from home. Discussed with oncology. Past Medical History Past Medical History: Cancer, COPD Additional Past Medical History / Comment(s): lung CA History of Any Multi-Drug Resistant Organisms: None Reported Additional Past Surgical History / Comment(s): Back surgery Past Psychological History: No Psychological Hx Reported Smoking Status: Former smoker Past Alcohol Use History: None Reported Past Drug Use History: None Reported Medications and Allergies Home Medications Medication Instructions Recorded Confirmed Type Albuterol Inhaler [Ventolin Hfa 1 - 2 puff INHALATION RT-QID PRN 07/23/23 02/23/24 History Inhaler] Cyanocobalamin [Vitamin B-12] 500 mcg PO DAILY 07/23/23 02/23/24 History Albuterol Nebulized [Ventolin 2.5 mg INHALATION RT-TID 02/23/24 02/23/24 History Nebulized] HYDROcodone/APAP 10-325MG [[place] 0.5 tab PO Q4HR 02/23/24 02/23/24 History 10-325] guaiFENesin [Mucinex] 600 mg PO Q3D 02/23/24 02/23/24 History Allergies Allergy/AdvReac Type Severity Reaction Status Date / Time No Known Allergies Allergy Verified 02/23/24 10:53 Physical Exam Vitals: Vital Signs Temp Pulse Pulse Resp BP BP Pulse Ox 02/23/24 08:06 98.6 F 96 24 123/68 92 L 02/23/24 06:25 88 16 109/55 93 L 02/23/24 03:04 87 16 92/58 90 L 02/23/24 00:00 98 20 106/70 97 02/22/24 23:22 111 H 20 108/76 97 02/22/24 22:55 85 02/22/24 20:01 98.5 F 119 H 20 111/71 94 L Intake and Output 02/22/24 02/23/24 02/23/24 22:59 06:59 14:59 Other: Voiding Method Bedside Commode Weight 51.71 kg 51.71 kg Results CBC & Chem 7: 02/23/24 05:38 02/23/24 05:38 Labs: Abnormal Lab Results - Last 24 Hours (Table) 02/22/24 02/22/24 02/22/24 Range/Units 20:51 20:51 20:51 RBC (3.80-5.40) m/uL Hgb (11.4-16.0) gm/dL Hct (34.0-46.0) % Lymphocytes # 0.1 L (1.0-4.8) k/uL Sodium 132 L (137-145) mmol/L Creatinine 0.51 L (0.52-1.04) mg/dL Glucose 105 H (74-99) mg/dL Calcium (8.4-10.2) mg/dL Total Protein 5.6 L (6.3-8.2) g/dL Albumin 3.2 L (3.5-5.0) g/dL Urine Ketones 1+ H (Negative) Ur Leukocyte Esterase Trace H (Negative) Urine WBC 7 H (0-5) /hpf Amorphous Sediment Rare H (None) /hpf Urine Bacteria Few H (None) /hpf Urine Mucus Occasional H (None) /hpf 02/23/24 02/23/24 Range/Units 05:38 05:38 RBC 3.71 L (3.80-5.40) m/uL Hgb 10.9 L (11.4-16.0) gm/dL Hct 32.8 L (34.0-46.0) % Lymphocytes # 0.2 L (1.0-4.8) k/uL Sodium 133 L (137-145) mmol/L Creatinine (0.52-1.04) mg/dL Glucose 116 H (74-99) mg/dL Calcium 8.1 L (8.4-10.2) mg/dL Total Protein 4.9 L (6.3-8.2) g/dL Albumin 2.6 L (3.5-5.0) g/dL Urine Ketones (Negative) Ur Leukocyte Esterase (Negative) Urine WBC (0-5) /hpf Amorphous Sediment (None) /hpf Urine Bacteria (None) /hpf Urine Mucus (None) /hpf Thrombosis Risk Factor Assmnt - Choose All That Apply Each Factor Represents 1 point: Abnormal pulmonary function (COPD) Other Risk Factors: Yes Each Risk Factor Represents 2 Points: Malignancy Each Risk Factor Represents 3 Points: Age 75 years or older Thrombosis Risk Factor Assessment Total Risk Factor Score: 6 Thrombosis Risk Factor Assessment Level: High Risk
[2024-02-23] MEDS ORDERED: IPRATROPIUM-ALBUTEROL 3 ML NEB INHALATION SCH (21:00)
[2024-02-23] MEDS: ENOXAPARIN 40 MG/0.4 ML SYRINGE SQ SCH (22:13)
[2024-02-24] MEDS: IPRATROPIUM-ALBUTEROL 3 ML NEB INHALATION SCH (08:20)
[2024-02-24] MEDS: droNABinol 2.5 MG CAP PO SCH (08:22)
[2024-02-24 10:15] LABS: % Iron Saturation 12.81 (12.00-45.00)
[2024-02-24 13:23] VITALS: BMI 20.2
--- NOTE | 2024-02-24 14:22 | P.PN ---
Subjective Progress Note Date: 02/24/24 Patient resting comfortably in bed. No acute changes. Reports pain meds are adequately controlling pain. Plan to transition pain meds to fentanyl patch today with hopes of d/c tomorrow Objective - Vital Signs Vital signs: Vital Signs Temp 98.9 F 02/24/24 08:00 Pulse 108 H 02/24/24 11:30 Resp 16 02/24/24 08:00 BP 106/64 02/24/24 08:00 Pulse Ox 96 02/24/24 08:00 FiO2 Intake & Output 02/23/24 02/24/24 02/24/24 18:59 06:59 18:59 Intake Total 540 240 480 Output Total 400 Balance 540 -160 480 Weight 51.71 kg Intake: Oral 540 240 480 Output: Urine 400 Other: Voiding Method Bedside Commode Bedside Commode # Voids 2 - Constitutional General appearance: Present: average body habitus, no acute distress - EENT Eyes: Present: anicteric sclerae, EOMI ENT: Present: hearing grossly normal - Respiratory Details: breathing is even and unlabored - Cardiovascular Details: skin warm and dry - Integumentary Integumentary: Absent: cyanotic - Neurologic Neurologic: Present: CNII-XII intact - Musculoskeletal Musculoskeletal: Present: strength equal bilaterally - Psychiatric Psychiatric: Present: A&O x's 3 - Labs CBC & Chem 7: 02/23/24 05:38 02/23/24 05:38 Labs: Abnormal Lab Results - Last 24 Hours (Table) 02/24/24 Range/Units 05:18 Iron 26 L (50-170) UG/DL TIBC 203 L (228-460) UG/DL Transferrin 145.0 L (204.0-354.0) mg/dL Ferritin 764.0 H (10.0-291.0) ng/mL Vitamin B12 3282.0 H (200.0-944.0) pg/mL Assessment and Plan (1) Metastatic lung cancer (metastasis from lung to other site) Current Visit: Yes Status: Acute Code(s): C34.90 - MALIGNANT NEOPLASM OF UNSP PART OF UNSP BRONCHUS OR LUNG SNOMED Code(s): 53358355 (2) Pain due to malignant neoplasm metastatic to bone Current Visit: Yes Status: Acute Code(s): G89.3 - NEOPLASM RELATED PAIN (ACUTE) (CHRONIC); C79.51 - SECONDARY MALIGNANT NEOPLASM OF BONE SNOMED Code(s): 689931833 (3) Dysphagia Current Visit: Yes Status: Acute Code(s): R13.10 - DYSPHAGIA, UNSPECIFIED SNOMED Code(s): 65745626 Plan: #Weakness, pain -Due to metastatic lung cancer -She did receive palliative radiation to the lumbar spine/sacrum with 5 fra ctions in December 2023 and has received palliative radiation to the ninth and 12th ribs in January 2024 -Continues on Dilaudid 1 mg IV every 3 hours as needed for breakthrough pain -Will transition to fentanyl patch 25mcg. Will continue to monitor pain control #Dysphagia -Not clear if this is due to malignancy or possible side effect of radiation -We will discuss this with radiation oncology #Metastatic lung cancer -Treated for primary stage IIA lung cancer of the left upper lobe with radiation therapy from October to November 2022 -PET/CT on 01/10/2024 noted FDG avid lesion in the right upper lung, mediastinal lymphadenopathy, liver, and bone concerning for metastatic lung cancer -Circulating tumor DNA analysis noted MET exon 14 skipping mutation -Current plan is to try capmatinib 400 mg twice daily once prior authorization approved. Will reach out to her pharmacy to see when med can be obtained -Once we physically obtain the medication, this can be started Updated pt on POC, all questions and concerns were addressed\ Briefly discussed case with admitting team, if pain is well controlled on fentanyl patch pt can be discharged tomorrow
--- NOTE | 2024-02-24 16:16 | P.PN ---
Progress Note - Text Progress Note Date: 02/24/24 Chief Complaint: Failure to thrive This is a pleasant 88-year-old patient who follows with VIN Hendricks,/Dr. Hendrix patient has a left long upper lobe mass that she was following with Dr. Hamilton. Initially did not want any treatment. Subsequently she decided agreed to get treatment and started getting radiation treatment back in November 2022. Patient does have home oxygen that she uses on a as needed basis. Also has a cerebral aneurysm behind the right eye that is being followed outpatient. Per oncology notes of Dr. Mark Clements: Ms. Patricia is an 88-year-old woman who with a past medical history significant for metastatic lung cancer presenting with weakness and dehydration. With regards to her lung cancer treatment, she underwent 10 fractions of radiation therapy from October to November of 2022 for suspected stage IIA lung cancer of the left upper lobe (she deferred on biopsy at this time). She developed progressive right flank and back pain or MRI of the spine in December 2023 noted concern for osseous metastases. PET/CT on 01/10/2024 noted FDG avid lesion in the right upper lung along with precarinal lymphadenopathy, liver metastases, and osseous metastases to the lumbar/thoracic spine and ninth and 12th right ribs. She underwent 5 fractions of palliative radiation to the sacrum and left lumbar spine in December 2023 along with palliative radiation to the ninth and 12th ribs in January 2024. 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 We reviewed this on 02/20/2024 with plan to try capmatinib 400 mg twice daily. She now presented to the ER because increasing shortness of breath. Increasing pain in the right hip. Very poor appetite. Constipated. Patient does have home oxygen. Just about able to walk a few steps. Family was considering hospice including the patient. But earlier today had a discussion with Dr. Alves from oncology. Will be trying the medication above. February 23: Reclining in bed. Pain is bit better. Eating some intermittently. Tired. Oncology has transected the patient to fentanyl patch today possibly discharge tomorrow. The Active Medications Albuterol/Ipratropium (Ipratropium-Albuterol 3 Ml Neb) 3 ml INHALATION RT-QID [facility] Last Admin: 02/24/24 15:27 Dose: Not Given Dronabinol (Dronabinol 2.5 Mg Cap) 5 mg PO AC-BID [facility] Last Admin: 02/24/24 08:22 Dose: 5 mg Enoxaparin Sodium (Enoxaparin 40 Mg/0.4 Ml Syringe) 40 mg SQ HS [facility] Last Admin: 02/23/24 22:13 Dose: Not Given Fentanyl (Fentanyl 25mcg/Hr Patch) 1 patch TRANSDERM Q72H [facility]; Protocol Hydromorphone HCl (Hydromorphone 1 Mg/Ml 1 Ml Syringe) 1 mg IVP Q3HR PRN PRN Reason: Severe Pain (Scale 7 to 10) Last Admin: 02/24/24 05:33 Dose: 1 mg Naloxone HCl (Naloxone 0.4 Mg/Ml 1 Ml Vial) 0.2 mg IV Q2M PRN PRN Reason: Opioid Reversal Ondansetron HCl (Ondansetron 4 Mg/2 Ml Vial) 4 mg IVP Q8HR PRN PRN Reason: Nausea And Vomiting Ondansetron HCl (Ondansetron 4 Mg/2 Ml Vial) 4 mg IVP Q8HR PRN PRN Reason: Nausea And Vomiting Social history: Smoked a pack for close to 57 years stopped in 16 years ago. Lives with her son and grandson. No alcohol. Physical examination: VITAL SIGNS: 99.5, 110, 18, 110 x 64, 93% room air GENERAL: Reclining in bed, tired muscle wasting tired EYES: Pupils equal. Conjunctiva lenadro l. HEENT: External appearance of nose and ears normal, oral cavity grossly normal. NECK: JVD not raised; masses not palpable. HEART: First and second heart sounds are normal; no edema. LUNGS: Respiratory rate increased, diminished breath sounds. ABDOMEN: Soft, nontender, liver spleen not palpable, no masses palpable. PSYCH: Alert and oriented x3; mood and affect anxious MUSCULOSKELETAL:No Clubbing/cyanosis;muscles-grossly intact. OA. Loss of muscle mass subcutaneous fat from the bones INVESTIGATIONS, reviewed in the clinical context: Iron 26 TIBC 203% saturation 112.8 transferrin 145 ferritin 764 folate 3282 TSH 4.8 February 22: White count 4.7 hemoglobin 10.9 platelets 171 sodium 133 potassium 3.6 creatinine 0.54 albumin 2.9 Assessment plan: -Acute medical asthenia including clinical dehydration weakness stemming from uncontrolled underlying metastatic cancer -Metastatic bone pain especially in the right hip. IV Dilaudid. Transition to Duragesic 25 mcg patch today. -COPD-prior smoker Krystyna. -Normocytic anemia of underlying malignancy Check B12 folate iron studies - metastatic lung cancer presenting with weakness and dehydration. With regards to her lung cancer treatment, she underwent 10 fractions of radiation therapy from October to November of 2022 for suspected stage IIA lung cancer of the left upper lobe (she deferred on biopsy at this time). She developed progressive right flank and back pain or MRI of the spine in December 2023 noted concern for osseous metastases. PET/CT on 01/10/2024 noted FDG avid lesion in the right upper lung along with precarinal lymphadenopathy, liver metastases, and osseous metastases to the lumbar/thoracic spine and ninth and 12th right ribs. She underwent 5 fractions of palliative radiation to the sacrum and left lumbar spine in December 2023 along with palliative radiation to the ninth and 12th ribs in January 2024. 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 Oncology reviewed this on 02/20/2024 with plan to try capmatinib 400 mg twice daily. -Primary osteoarthritis Tylenol as needed -Chronic urine incontinence -Anorexia from underlying malignancy Add Marinol. -Severe protein calorie malnutrition from underlying malignancy with poor appetite Food supplements. Consult dietitian. -Chronic hypoxic respiratory failure from underlying emphysema and lung cancer Has home oxygen -DNR -Medical power of managing attorney, patient's daughter Tash Put on Duragesic patch today by oncology. Hopefully plan for discharge tomorrow. Past Medical History Past Medical History: Cancer, COPD Additional Past Medical History / Comment(s): lung CA History of Any Multi-Drug Resistant Organisms: None Reported Additional Past Surgical History / Comment(s): Back surgery Past Psychological History: No Psychological Hx Reported Smoking Status: Former smoker Past Alcohol Use History: None Reported Past Drug Use History: None Reported
[2024-02-25] MEDS: SALT AND SODA MOUTHWASH 1,000 ML PO SCH (07:32)
[2024-02-25] MEDS ORDERED: MAGNESIUM HYDROXIDE 2,400 MG/30 ML CUP PO PRN (11:08)
[2024-02-25] MEDS: SENNOSIDES-DOCUSATE SODIUM 1 EACH TAB PO SCH (11:19)
--- NOTE | 2024-02-25 17:09 | P.PN ---
Subjective Progress Note Date: 02/25/24 Principal diagnosis: Metastatic NSCLC, MET skipping mutation In f/u today pt is reporting fair pain control, appetite is such that she would like to increase her diet, no new pain to report, she feels she may be constipated. Objective - Vital Signs Vital signs: Vital Signs Temp 99.1 F 02/25/24 07:10 Pulse 96 02/25/24 08:35 Resp 16 02/25/24 07:10 BP 156/79 02/25/24 07:10 Pulse Ox 92 L 02/25/24 07:10 FiO2 Intake & Output 02/24/24 02/25/24 02/25/24 18:59 06:59 18:59 Intake Total 960 540 Balance 960 540 Weight 51.71 kg Intake: Oral 960 540 Other: Voiding Method Bedside Commode Bedside Commode Bedside Commode # Voids 2 - Constitutional General appearance: Present: average body habitus, cooperative, no acute distress - EENT Eyes: Present: anicteric sclerae, EOMI ENT: Present: hearing grossly normal, normal oropharynx - Respiratory Details: resp even and unlabored at rest - Cardiovascular Details: skin warm and dry to touch, well perfused - Peripheral edema leg Peripheral Edema: bilateral: None - Gastrointestinal General gastrointestinal: Present: soft - Neurologic Neurologic: Present: CNII-XII intact (grossly) - Musculoskeletal Musculoskeletal: Present: generalized weakness, strength equal bilaterally - Psychiatric Psychiatric: Present: A&O x's 3, appropriate affect, intact judgment & insight - Labs CBC & Chem 7: 02/23/24 05:38 02/23/24 05:38 Assessment and Plan (1) Metastatic lung cancer (metastasis from lung to other site) Current Visit: Yes Status: Acute Code(s): C34.90 - MALIGNANT NEOPLASM OF UNSP PART OF UNSP BRONCHUS OR LUNG SNOMED Code(s): 30199222 (2) Pain due to malignant neoplasm metastatic to bone Current Visit: Yes Status: Acute Code(s): G89.3 - NEOPLASM RELATED PAIN (ACUTE) (CHRONIC); C79.51 - SECONDARY MALIGNANT NEOPLASM OF BONE SNOMED Code(s): 060771338 Plan: Metastatic NSCLC-met 14 skipping mutation. -diagnosis and plan of care as described in consult -pending start of oral targeted agent Weakness, pain -Due to metastatic lung cancer -She did receive palliative radiation to the lumbar spine/sacrum with 5 fractions in December 2023 and has received palliative radiation to the ninth and 12th ribs in January 2024 -She has been receiving dilaudid IV with relief. Family has agreed to fentanyl patch, this will be started today. Will see about converting the dilaudid to oral short acting pain med once fentanyl has had a chance to take effect -Meds for prevention of narcotic induced constipation ordered Dysphagia -Not clear if this is due to malignancy or possible side effect of radiation -Pt did ask for diet advancement to full liquids, she is tolerating well at this time -Pending discuss with Rad Onc
--- NOTE | 2024-02-25 19:59 | P.PN ---
Progress Note - Text Progress Note Date: 02/25/24 Chief Complaint: Failure to thrive This is a pleasant 88-year-old patient who follows with VIN Hendricks,/Dr. Hendrix patient has a left long upper lobe mass that she was following with Dr. Hamilton. Initially did not want any treatment. Subsequently she decided agreed to get treatment and started getting radiation treatment back in November 2022. Patient does have home oxygen that she uses on a as needed basis. Also has a cerebral aneurysm behind the right eye that is being followed outpatient. Per oncology notes of Dr. Mark Clements: Ms. Patricia is an 88-year-old woman who with a past medical history significant for metastatic lung cancer presenting with weakness and dehydration. With regards to her lung cancer treatment, she underwent 10 fractions of radiation therapy from October to November of 2022 for suspected stage IIA lung cancer of the left upper lobe (she deferred on biopsy at this time). She developed progressive right flank and back pain or MRI of the spine in December 2023 noted concern for osseous metastases. PET/CT on 01/10/2024 noted FDG avid lesion in the right upper lung along with precarinal lymphadenopathy, liver metastases, and osseous metastases to the lumbar/thoracic spine and ninth and 12th right ribs. She underwent 5 fractions of palliative radiation to the sacrum and left lumbar spine in December 2023 along with palliative radiation to the ninth and 12th ribs in January 2024. 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 We reviewed this on 02/20/2024 with plan to try capmatinib 400 mg twice daily. She now presented to the ER because increasing shortness of breath. Increasing pain in the right hip. Very poor appetite. Constipated. Patient does have home oxygen. Just about able to walk a few steps. Family was considering hospice including the patient. But earlier today had a discussion with Dr. Alves from oncology. Will be trying the medication above. February 23: Reclining in bed. Pain is bit better. Eating some intermittently. Tired. Oncology has transected the patient to fentanyl patch today possibly discharge tomorrow. February 24: Duragesic patch was started today. Patient eating small amounts. Has not had a bowel movement. Lying in bed. Tired. Had some yellow sputum. Doxycycline be added for acute bronchitis. Active Medications Albuterol/Ipratropium (Ipratropium-Albuterol 3 Ml Neb) 3 ml INHALATION RT-QID [facility] Last Admin: 02/25/24 18:24 Dose: 3 ml Doxycycline Monohydrate (Doxycycline 100 Mg Cap) 100 mg PO BID [facility]; Protocol Dronabinol (Dronabinol 2.5 Mg Cap) 5 mg PO AC-BID [facility] Last Admin: 02/25/24 17:32 Dose: 5 mg Enoxaparin Sodium (Enoxaparin 40 Mg/0.4 Ml Syringe) 40 mg SQ HS [facility] Last Admin: 02/24/24 20:52 Dose: 40 mg Fentanyl (Fentanyl 25mcg/Hr Patch) 1 patch TRANSDERM Q72H [facility]; Protocol Last Admin: 02/25/24 11:19 Dose: 1 patch Hydromorphone HCl (Hydromorphone 1 Mg/Ml 1 Ml Syringe) 1 mg IVP Q3HR PRN PRN Reason: Severe Pain (Scale 7 to 10) Last Admin: 02/25/24 09:59 Dose: 1 mg Magnesium Hydroxide (Magnesium Hydroxide 2,400 Mg/30 Ml Cup) 2,400 mg PO DAILY PRN PRN Reason: Constipation Naloxone HCl (Naloxone 0.4 Mg/Ml 1 Ml Vial) 0.2 mg IV Q2M PRN PRN Reason: Opioid Reversal Ondansetron HCl (Ondansetron 4 Mg/2 Ml Vial) 4 mg IVP Q8HR PRN PRN Reason: Nausea And Vomiting Ondansetron HCl (Ondansetron 4 Mg/2 Ml Vial) 4 mg IVP Q8HR PRN PRN Reason: Nausea And Vomiting Senna/Docusate Sodium (Sennosides-Docusate Sodium 1 Each Tab) 1 each PO BID [facility] Last Admin: 02/25/24 11:19 Dose: 1 each Sodium Bicarbonate (Salt And Soda Mouthwash 1,000 Ml) 5 ml PO 5XD [facility] Last Admin: 02/25/24 16:42 Dose: 5 ml Social history: Smoked a pack for close to 57 years stopped in 16 years ago. Lives with her son and grandson. No alcohol. Physical examination: VITAL SIGNS: 98.8, 107, 16, 100 x 13 x 57, 92% room air GENERAL: Reclining in bed, tired, muscle wasting tired EYES: Pupils equal. Conjunctiva leandro l. HEENT: External appearance of nose and ears normal, oral cavity grossly normal. NECK: JVD not raised; masses not palpable. HEART: First and second heart sounds are normal; no edema. LUNGS: Respiratory rate increased, diminished breath sounds. ABDOMEN: Soft, nontender, liver spleen not palpable, no masses palpable. PSYCH: Alert and oriented x3; mood and affect anxious MUSCULOSKELETAL:No Clubbing/cyanosis;muscles-grossly intact. OA. Loss of muscle mass subcutaneous fat from the bones INVESTIGATIONS, reviewed in the clinical context: Iron 26 TIBC 203% saturation 112.8 transferrin 145 ferritin 764 folate 3282 TSH 4.8 February 22: White count 4.7 hemoglobin 10.9 platelets 171 sodium 133 potassium 3.6 creatinine 0.54 albumin 2.9 Assessment plan: -Acute medical asthenia including clinical dehydration weakness stemming from uncontrolled underlying metastatic cancer -Metastatic bone pain especially in the right hip. IV Dilaudid. Duragesic patch was added today 25 as opposed yesterday -COPD-prior smoker DuoNeb. -Normocytic anemia of underlying malignancy Normal folate B12. - metastatic lung cancer presenting with weakness and dehydration. With regards to her lung cancer treatment, she underwent 10 fractions of radiation therapy from October to November of 2022 for suspected stage IIA lung cancer of the left upper lobe (she deferred on biopsy at this time). She developed progressive right flank and back pain or MRI of the spine in December 2023 noted concern for osseous metastases. PET/CT on 01/10/2024 noted FDG avid lesion in the right upper lung along with precarinal lymphadenopathy, liver metastases, and osseous metastases to the lumbar/thoracic spine and ninth and 12th right ribs. She underwent 5 fractions of palliative radiation to the sacrum and left lumbar spine in December 2023 along with palliative radiation to the ninth and 12th ribs in January 2024. 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 Oncology reviewed this on 02/20/2024 with plan to try capmatinib 400 mg twice daily. -Primary osteoarthritis Tylenol as needed -Chronic urine incontinence -Anorexia from underlying malignancy Marinol. -Severe protein calorie malnutrition from underlying malignancy with poor appetite Food supplements. Consult dietitian. -Chronic hypoxic respiratory failure from underlying emphysema and lung cancer Has home oxygen -DNR -Medical power of environmental attorney, patient's daughter Tash Discussed with patient. Duragesic patch was started today. Encourage activity. Past Medical History Past Medical History: Cancer, COPD Additional Past Medical History / Comment(s): lung CA History of Any Multi-Drug Resistant Organisms: None Reported Additional Past Surgical History / Comment(s): Back surgery Past Psychological History: No Psychological Hx Reported Smoking Status: Former smoker Past Alcohol Use History: None Reported Past Drug Use History: None Reported
[2024-02-25] MEDS: DOXYCYCLINE 100 MG CAP PO SCH (20:50)
[2024-02-26 13:09] VITALS: BP 107/62; PULSE 115; RESP 12; TEMP 97.9
--- NOTE | 2024-02-26 17:01 | P.DS ---
Providers Date of admission: 02/22/24 22:03 Expected date of discharge: 02/26/24 Attending physician: Sameer Birmingham Consults: 02/22/24 22:03 Consult Physician Urgent Consulting Provider: Bull Clements Consult Reason/Comments: known Do you want consulting provider notified?: Yes Primary care physician: Willie Buenrostro, DO Hospital Course: Chief Complaint: Failure to thrive This is a pleasant 88-year-old patient who follows with VIN Hendricks,/Dr. Hendrix patient has a left long upper lobe mass that she was following with Dr. Hamilton. Initially did not want any treatment. Subsequently she decided agreed to get treatment and started getting radiation treatment back in November 2022. Patient does have home oxygen that she uses on a as needed basis. Also has a cerebral aneurysm behind the right eye that is being followed outpatient. Per oncology notes of Dr. Mark Clements: Ms. Patricia is an 88-year-old woman who with a past medical history significant for metastatic lung cancer presenting with weakness and dehydration. With regards to her lung cancer treatment, she underwent 10 fractions of radiation therapy from October to November of 2022 for suspected stage IIA lung cancer of the left upper lobe (she deferred on biopsy at this time). She developed progressive right flank and back pain or MRI of the spine in December 2023 noted concern for osseous metastases. PET/CT on 01/10/2024 noted FDG avid lesion in the right upper lung along with precarinal lymphadenopathy, liver metastases, and osseous metastases to the lumbar/thoracic spine and ninth and 12th right ribs. She underwent 5 fractions of palliative radiation to the sacrum and left lumbar spine in December 2023 along with palliative radiation to the ninth and 12th ribs in January 2024. 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 We reviewed this on 02/20/2024 with plan to try capmatinib 400 mg twice daily. She now presented to the ER because increasing shortness of breath. Increasing pain in the right hip. Very poor appetite. Constipated. Patient does have home oxygen. Just about able to walk a few steps. Family was considering hospice including the patient. But earlier today had a discussion with Dr. Alves from oncology. Will be trying the medication above. February 23: Reclining in bed. Pain is bit better. Eating some intermittently. Tired. Oncology has transected the patient to fentanyl patch today possibly discharge tomorrow. February 24: Duragesic patch was started today. Patient eating small amounts. Has not had a bowel movement. Lying in bed. Tired. Had some yellow sputum. Doxycycline be added for acute bronchitis. February 25: Patient has not required any Dilaudid. Has been on Duragesic patch. Cleared by neurology for discharge. Will complete a short course of doxycycline for acute bronchitis. Family at the bedside. Outpatient follow-up with oncology. Oral intake encouraged. She has a son at home. Case management looked at home needs. Social history: Smoked a pack for close to 57 years stopped in 16 years ago. Lives with her son and grandson. No alcohol. Physical examination: VITAL SIGNS: 97.9, 110, 14, 97 x 62, GENERAL: Reclining in bed, tired, muscle wasting tired EYES: Pupils equal. Conjunctiva leandro l. HEENT: External appearance of nose and ears normal, oral cavity grossly normal. NECK: JVD not raised; masses not palpable. HEART: First and second heart sounds are normal; no edema. LUNGS: Respiratory rate normal, diminished breath sounds. ABDOMEN: Soft, nontender, liver spleen not palpable, no masses palpable. PSYCH: Alert and oriented x3; mood and affect anxious MUSCULOSKELETAL:No Clubbing/cyanosis;muscles-grossly intact. OA. Loss of muscle mass subcutaneous fat from the bones INVESTIGATIONS, reviewed in the clinical context: Iron 26 TIBC 203% saturation 112.8 transferrin 145 ferritin 764 folate 3282 TSH 4.8 February 22: White count 4.7 hemoglobin 10.9 platelets 171 sodium 133 potassium 3.6 creatinine 0.54 albumin 2.9 Assessment plan: -Acute medical asthenia including clinical dehydration weakness stemming from uncontrolled underlying metastatic cancer -Metastatic bone pain especially in the right hip. IV Dilaudid. Duragesic patch was added today 25 as opposed yesterday -COPD-prior smoker DuoNeb. -Normocytic anemia of underlying malignancy Normal folate B12. - metastatic lung cancer presenting with weakness and dehydration. With regards to her lung cancer treatment, she underwent 10 fractions of radiation therapy from October to November of 2022 for suspected stage IIA lung cancer of the left upper lobe (she deferred on biopsy at this time). She developed progressive right flank and back pain or MRI of the spine in December 2023 noted concern for osseous metastases. PET/CT on 01/10/2024 noted FDG avid lesion in the right upper lung along with precarinal lymphadenopathy, liver metastases, and osseous metastases to the lumbar/thoracic spine and ninth and 12th right ribs. She underwent 5 fractions of palliative radiation to the sacrum and left lumbar spine in December 2023 along with palliative radiation to the ninth and 12th ribs in January 2024. 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 Oncology reviewed this on 02/20/2024 with plan to try capmatinib 400 mg twice daily. Follow-up with oncology outpatient -Primary osteoarthritis Tylenol as needed -Chronic urine incontinence -Anorexia from underlying malignancy Marinol. -Severe protein calorie malnutrition from underlying malignancy with poor appe tite Food supplements. Seen by dietitian -Chronic hypoxic respiratory failure from underlying emphysema and lung cancer Has home oxygen -DNR -Medical power of sports attorney, patient's daughter Tash Disposition: Home Past Medical History Past Medical History: Cancer, COPD Additional Past Medical History / Comment(s): lung CA History of Any Multi-Drug Resistant Organisms: None Reported Additional Past Surgical History / Comment(s): Back surgery Past Psychological History: No Psychological Hx Reported Smoking Status: Former smoker Past Alcohol Use History: None Reported Past Drug Use History: None Reported Plan - Discharge Summary Discharge Rx Participant: No New Discharge Prescriptions: New Ipratropium-Albuterol Nebulize [Duoneb 0.5 mg-3 mg/3 ml Soln] 3 ml INHALATION RT-QID #120 each Sennosides-Docusate Sodium [Senokot-S] 1 each PO BID #60 tab Doxycycline [Vibramycin] 100 mg PO BID #6 cap Continue Albuterol Inhaler [Ventolin Hfa Inhaler] 1 - 2 puff INHALATION RT-QID PRN PRN Reason: Shortness Of Breath Cyanocobalamin [Vitamin B-12] 500 mcg PO DAILY guaiFENesin [Mucinex] 600 mg PO Q3D Changed HYDROcodone/APAP 10-325MG [[place] 10-325] 0.5 tab PO Q4HR PRN #0 PRN Reason: Pain Discontinued Albuterol Nebulized [Ventolin Nebulized] 2.5 mg INHALATION RT-TID Discharge Medication List Albuterol Inhaler [Ventolin Hfa Inhaler] 1 - 2 puff INHALATION RT-QID PRN 10/10 [History] Cyanocobalamin [Vitamin B-12] 500 mcg PO DAILY 07/23/23 [History] guaiFENesin [Mucinex] 600 mg PO Q3D 02/23/24 [History] Doxycycline [Vibramycin] 100 mg PO BID #6 cap 02/26/24 [Rx] HYDROcodone/APAP 10-325MG [[place] 10-325] 0.5 tab PO Q4HR PRN #0 02/26/24 [Rx] Ipratropium-Albuterol Nebulize [Duoneb 0.5 mg-3 mg/3 ml Soln] 3 ml INHALATION RT-QID #120 each 02/26/24 [Rx] Sennosides-Docusate Sodium [Senokot-S] 1 each PO BID #60 tab 02/26/24 [Rx] Follow up Appointment(s)/Referral(s): Bre Kendrick NPC [Nurse Practitioner] - 03/05/24 2:45 pm Tevin Azul MD [REFERRING] - 03/02/24 11:00 am (appointment with Marcia PRESTON) Patient Instructions/Handouts: Fentanyl (Absorbed through the skin), Lung Cancer (DC) Discharge Disposition: HOME SELF-CARE
--- NOTE | 2024-02-26 18:53 | P.PN ---
Subjective Progress Note Date: 02/26/24 Patient resting comfortably in bed. No acute changes. Reports pain meds are adequately controlling pain, has not used IV pain meds since patch was started. Plan for discharge today Objective - Vital Signs Vital signs: Vital Signs Temp 97.9 F 02/26/24 12:59 Pulse 115 H 02/26/24 12:59 Resp 12 02/26/24 12:59 BP 107/62 02/26/24 12:59 Pulse Ox 97 02/26/24 07:47 FiO2 Intake & Output 02/25/24 02/26/24 02/26/24 18:59 06:59 18:59 Intake Total 120 Balance 120 Intake: Oral 120 Other: Voiding Method Bedside Commode Bedside Commode Bedside Commode # Voids 2 - Constitutional General appearance: Present: average body habitus, no acute distress - EENT ENT: Present: hearing grossly normal - Respiratory Details: breathing is even and unlabored - Cardiovascular Details: skin warm and dry - Neurologic Neurologic: Present: CNII-XII intact - Musculoskeletal Musculoskeletal: Present: strength equal bilaterally - Psychiatric Psychiatric: Present: A&O x's 3 - Labs CBC & Chem 7: 02/23/24 05:38 02/23/24 05:38 Assessment and Plan (1) Metastatic lung cancer (metastasis from lung to other site) Status: Acute Code(s): C34.90 - MALIGNANT NEOPLASM OF UNSP PART OF UNSP BR ONCHUS OR LUNG SNOMED Code(s): 22982246 (2) Pain due to malignant neoplasm metastatic to bone Status: Acute Code(s): G89.3 - NEOPLASM RELATED PAIN (ACUTE) (CHRONIC); C79.51 - SECONDARY MALIGNANT NEOPLASM OF BONE SNOMED Code(s): 701673803 (3) Dysphagia Status: Acute Code(s): R13.10 - DYSPHAGIA, UNSPECIFIED SNOMED Code(s): 98697691 Plan: #Weakness, pain -Due to metastatic lung cancer -She did receive palliative radiation to the lumbar spine/sacrum with 5 fractions in December 2023 and has received palliative radiation to the ninth and 12th ribs in January 2024 -Started on fentanyl patch 25mcg, with good pain control. Fentanyl script sent to [facility] #Dysphagia -Not clear if this is due to malignancy or possible side effect of radiation -We will discuss this with radiation oncology #Metastatic lung cancer -Treated for primary stage IIA lung cancer of the left upper lobe with radiation therapy from October to November 2022 -PET/CT on 01/10/2024 noted FDG avid lesion in the right upper lung, mediastinal lymphadenopathy, liver, and bone concerning for metastatic lung cancer -Circulating tumor DNA analysis noted MET exon 14 skipping mutation -Current plan is to try capmatinib 400 mg twice daily. Patient will peanut picker medication upon discharge. Medication and side effects and supportive care measures discussed in detail with patient and family. Literature provided. Chemo teach scheduled for 03/05 Updated pt on POC, all questions and concerns were addressed
== END 2024-02-26 15:39 | disposition home or self-care (01) | DRG 947 ==
LOC: EC 19:57 → 5NMEDONC 22:03
PROVIDERS: ADMIT Hospitalist; ATTEND Hospitalist
DX: G89.3 Neoplasm related pain (acute) (chronic) (principal); E43 Unspecified severe protein-calorie malnutrition; C79.51 Secondary malignant neoplasm of bone; C34.90 Malignant neoplasm of unspecified part of unspecified bronchus or lung; C78.7 Secondary malignant neoplasm of liver and intrahepatic bile duct; J96.11 Chronic respiratory failure with hypoxia; R62.7 Adult failure to thrive; Z66 Do not resuscitate; Z51.5 Encounter for palliative care; J43.9 Emphysema, unspecified; R13.10 Dysphagia, unspecified; R63.0 Anorexia; R59.1 Generalized enlarged lymph nodes; J20.9 Acute bronchitis, unspecified; Z68.27 Body mass index [BMI] 27.0-27.9, adult; E86.0 Dehydration; K59.00 Constipation, unspecified; Z87.891 Personal history of nicotine dependence
CPT/HCPCS: 36415; 80053; 81001; 82607; 82728; 82746; 83540; 83550; 83605; 83735; 83880; 84100; 84443; 84484; 85025; 85610; 85730; 93005; 94640; 94760; 96361; 96374; 96376; 99291

== ENCOUNTER 2024-04-06 12:37 | Inpatient (IN) | payer MEDICARE, OTHER ==
--- NOTE | 2024-04-06 13:23 | ED ---
General Adult HPI - General Chief complaint: Abdominal Pain Stated complaint: Dehydration-Cancer pt Time Seen by Provider: 04/06/24 12:53 Source: patient, family, RN notes reviewed Mode of arrival: wheelchair Limitations: no limitations - History of Present Illness Initial comments: Patient is an 89-year-old female with metastatic stage IV lung cancer presenting to the emergency department with concerns for dehydration and pain. Patient is already on fentanyl patch. Patient does have some shortness of breath which has increased from normal. Patient has some increased abdominal discomfort from normal. Patient has known lesions in her abdomen and spine and throughout the chest. Patient has received radiation treatment to several areas. Patient has decreased urinary output and decreased oral intake, they are concerned for dehydration. Patient does have general weakness and unable to get out of bed on her own - Related Data Home Medications Medication Instructions Recorded Confirmed Albuterol Inhaler [Ventolin Hfa 1 - 2 puff INHALATION RT-QID PRN 07/23/23 02/23/24 Inhaler] Cyanocobalamin [Vitamin B-12] 500 mcg PO DAILY 07/23/23 02/23/24 guaiFENesin [Mucinex] 600 mg PO Q3D 02/23/24 02/23/24 Previous Rx's Medication Instructions Recorded Doxycycline [Vibramycin] 100 mg PO BID #6 cap 02/26/24 HYDROcodone/APAP 10-325MG [[place] 0.5 tab PO Q4HR PRN #0 02/26/24 10-325] Ipratropium-Albuterol Nebulize 3 ml INHALATION RT-QID #120 each 02/26/24 [Duoneb 0.5 mg-3 mg/3 ml Soln] Sennosides-Docusate Sodium 1 each PO BID #60 tab 02/26/24 [Senokot-S] Allergies Allergy/AdvReac Type Severity Reaction Status Date / Time No Known Allergies Allergy Verified 04/06/24 12:49 Review of Systems ROS Statement: Those systems with pertinent positive or pertinent negative responses have been documented in the HPI. ROS Other: All systems not noted in ROS Statement are negative. Constitutional: Denies: fever Eyes: Denies: eye pain ENT: Denies: ear pain Respiratory: Reports: dyspnea Cardiovascular: Denies: chest pain Gastrointestinal: Reports: abdominal pain Neurological: Reports: weakness Past Medical History Past Medical History: Cancer Additional Past Medical History / Comment(s): lung CA History of Any Multi-Drug Resistant Organisms: None Reported Additional Past Surgical History / Comment(s): Back surgery Past Psychological History: No Psychological Hx Reported Smoking Status: Former smoker Past Alcohol Use History: None Reported Past Drug Use History: None Reported General Exam Limitations: no limitations General appearance: alert, in no apparent distress Head exam: Present: normocephalic Eye exam: Present: normal appearance Respiratory exam: Present: normal lung sounds bilaterally Cardiovascular Exam: Present: regular rate, normal rhythm GI/Abdominal exam: Present: soft. Absent: tenderness Extremities exam: Present: normal inspection Neurological exam: Present: alert Psychiatric exam: Present: normal affect, normal mood Skin exam: Present: normal color Course Vital Signs 04/06/24 04/06/24 04/06/24 12:46 13:08 15:23 Temperature 97.2 F L Pulse Rate 74 106 H 92 Respiratory 20 18 20 Rate Blood Pressure 134/84 124/81 111/62 O2 Sat by Pulse 86 L 92 L 93 L Oximetry EKG Findings - EKG Results: EKG: interpreted by VALERIO, sinus rhythm, normal axis, normal QRS, normal ST/T Medical Decision Making - Medical Decision Making Was pt. sent in by a medical professional or institution (, PA, COOKIE BREAKER, urgent care, hospital, or halfway...) When possible be specific @ -No Did you speak to anyone other than the patient for history (EMS, parent, family, police, friend...)? What history was obtained from this source @ -Family is present helps provide history including patient's weakness and inability to take care of herself Did you review nursing and triage notes (agree or disagree)? Why? @ -I reviewed and agree with nursing and triage notes Were old charts reviewed (outside hosp., previous admission, EMS record, old EKG, old radiological studies, urgent care reports/EKG's, halfway records)? Report findings @ -Previous chest x-ray reviewed with left hilar mass also, no effusion Differential Diagnosis (chest pain, altered mental status, abdominal pain women, abdominal pain men, vaginal bleeding, weakness, fever, dyspnea, syncope, headach e, dizziness, GI bleed, back pain, seizure, CVA, palpatations, mental health, musculoskeletal)? @ -Differential weakness EKG interpreted by me (3pts min.). @ -As above X-rays interpreted by me (1pt min.). @ -Chest x-ray shows left hilar mass, small left effusion CT interpreted by me (1pt min.). @ -None done U/S interpreted by me (1pt. min.). @ -None done What testing was considered but not performed or refused? (CT, X-rays, U/S, labs)? Why? @ -None What meds were considered but not given or refused? Why? @ -None Did you discuss the management of the patient with other professionals (pr ofessionals i.e. , PA, COOKIE BREAKER, lab, RT, psych nurse, social services aide, design printer balloon, teacher, hydrological technical officer, transplant case manager)? Give summary @ -Case discussed with Dr. Duff covering hospital call who will admit Was smoking cessation discussed for >3mins.? @ -No Was critical care preformed (if so, how long)? @ -No Were there social determinants of health that impacted care today? How? (Homelessness, low income, unemployed, alcoholism, drug addiction, transportation, low edu. Level, literacy, decrease access to med. care, alf, rehab)? @ -No Was there de-escalation of care discussed even if they declined (Discuss DNR or withdrawal of care, Hospice)? DNR status @ -No What co-morbidities impacted this encounter? (DM, HTN, Smoking, COPD, CAD, Cancer, CVA, ARF, Chemo, Hep., AIDS, mental health diagnosis, sleep apnea, morbid obesity)? @ -Metastatic lung cancer Was patient admitted / discharged? Hospital course, mention meds given and route, prescriptions, significant lab abnormalities, going to OR and other pertinent info. @ -Patient presents with history of metastatic lung cancer with increased wea kness and concerns for dehydration, no longer able to take care of herself. Patient does have PET scan pending and currently is on therapy. There is concern if symptoms are worsening that they may switch over to hospice however this has not been done yet decided. Patient will be admitted with oncology consult. Admission orders written Undiagnosed new problem with uncertain prognosis? @ -No Drug Therapy requiring intensive monitoring for toxicity (Heparin, Nitro, Insulin, Cardizem)? @ -No Were any procedures done? @ -No Diagnosis/symptom? @ -Weakness, dehydration Acute, or Chronic, or Acute on Chronic? @ -, Acute Uncomplicated (without systemic symptoms) or Complicated (systemic symptoms)? @ -Default Side effects of treatment? @ -No Exacerbation, Progression, or Severe Exacerbation? @ -No Poses a threat to life or bodily function? How? (Chest pain, [place], [place], pneumonia, PE, COPD, DKA, ARF, appy, cholecystitis, CVA, Diverticulitis, Homicidal, Suicidal, threat to staff... and all critical care pts) @ -No - Lab Data Result diagrams: 04/06/24 13:46 04/06/24 13:46 Lab Results 04/06/24 04/06/24 04/06/24 Range/Units 13:46 13:46 13:46 WBC 7.1 (3.8-10.6) k/uL RBC 4.49 (3.80-5.40) m/uL Hgb 13.0 (11.4-16.0) gm/dL Hct 40.5 (34.0-46.0) % MCV 90.2 (80.0-100.0) fL MCH 29.0 (25.0-35.0) pg MCHC 32.2 (31.0-37.0) g/dL RDW 15.1 (11.5-15.5) % Plt Count 226 (150-450) k/uL MPV 7.2 Neutrophils % 85 % Lymphocytes % 6 % Monocytes % 7 % Eosinophils % 1 % Basophils % 0 % Neutrophils # 6.0 (1.3-7.7) k/uL Lymphocytes # 0.4 L (1.0-4.8) k/uL Monocytes # 0.5 (0-1.0) k/uL Eosinophils # 0.1 (0-0.7) k/uL Basophils # 0.0 (0-0.2) k/uL PT 13.0 H (10.0-12.5) sec INR 1.2 H (<1.2) APTT 26.1 (22.0-30.0) sec Sodium 131 L (137-145) mmol/L Potassium 3.5 (3.5-5.1) mmol/L Chloride 94 L (98-107) mmol/L Carbon Dioxide 31 H (22-30) mmol/L Anion Gap 6 mmol/L BUN 6 L (7-17) mg/dL Creatinine 0.65 (0.52-1.04) mg/dL Est GFR (CKD-EPI)AfAm >90 (>60 ml/min/1.73 sqM) Est GFR (CKD-EPI)NonAf 80 (>60 ml/min/1.73 sqM) Glucose 116 H (74-99) mg/dL Calcium 7.8 L (8.4-10.2) mg/dL Magnesium 1.7 (1.6-2.3) mg/dL Total Bilirubin 0.9 (0.2-1.3) mg/dL AST 29 (14-36) U/L ALT 15 (4-34) U/L Alkaline Phosphatase 99 (38-126) U/L Total Protein 5.0 L (6.3-8.2) g/dL Albumin 2.3 L (3.5-5.0) g/dL Amylase 35 (30-110) U/L Lipase 109 (23-300) U/L Disposition Clinical Impression: Weakness, Dehydration Disposition: ADMITTED IP TO THIS HOSP Is patient prescribed a controlled substance at d/c from ED?: No Referrals: Willie Buenrostro DO [Primary Care Provider] - 1-2 days Time of Disposition: 16:52
[2024-04-06] MEDS: SODIUM CHLORIDE 0.9% 500 ML 500 ML IV STA (13:50)
[2024-04-06] MEDS: ONDANSETRON 4 MG/2 ML VIAL IVP STA (13:51)
[2024-04-06] MEDS: PANTOPRAZOLE 40 MG/10 ML VIAL IVP STA (13:56)
[2024-04-06] MEDS: SODIUM CHLORIDE 0.9% 1,000 ML IV STA (13:59)
[2024-04-06] MEDS: MORPHINE SULFATE 4 MG/ML SYRINGE IVP STA (14:20)
[2024-04-06 14:22] LABS: Basophils % (A) 0 %; Eosinophils # (A) 0.1 k/uL (0-0.7); Eosinophils % (A) 1 %; HCT 40.5 % (34.0-46.0); Lymphocytes # (A) 0.4 k/uL (1.0-4.8); Lymphocytes % (A) 6 %; MCHC 32.2 g/dL (31.0-37.0); MCV 90.2 fL (80.0-100.0); Mean Platelet Volume 7.2; Monocytes # (A) 0.5 k/uL (0-1.0); Monocytes % (A) 7 %; Neutrophils % (A) 85 %; Platelet Count 226 k/uL (150-450); RBC 4.49 m/uL (3.80-5.40); RDW 15.1 % (11.5-15.5); WBC 7.1 k/uL (3.8-10.6)
--- NOTE | 2024-04-06 14:22 | XR ---
EXAMINATION TYPE: XR chest 2V DATE OF EXAM: 04/06/2024 CLINICAL HISTORY: Pain TECHNIQUE: Frontal and lateral views of the chest are obtained. COMPARISON: 07/24/2023 FINDINGS: Left suprahilar nodular density with linear parenchymal scar. Chest leads limited evaluatio n of the right upper lobe as there has been nodule noted on recent PET/CT. Small right effusion. The cardiac silhouette size is within normal limits. The osseous structures are intact. IMPRESSION: 1. Nodular density left suprahilar region. Small right pleural effusion. [facility], , 04/06/2024 2:20 PM
--- NOTE | 2024-04-06 14:29 | XR ---
EXAMINATION TYPE: XR KUB DATE OF EXAM: 04/06/2024 2:15 PM COMPARISON: None. CLINICAL INDICATION: Female, 89 years old with history of abdominal pain, TECHNIQUE: Single view of the abdomen. FINDINGS: Small bowel demonstrates no evidence for dilatation or air fluid levels. Gas and fecal material is seen in non-distended colon. No convincing evidence for pneumoperitoneum. No unusual calcifications. The lung bases are clear. The osseous structures are intact. IMPRESSION: 1. Overall nonobstructive bowel gas pattern. [facility], , 04/06/2024 2:27 PM
[2024-04-06 14:33] LABS: ALT 15 U/L (4-34); AST 29 U/L (14-36); African American GFR (CKD) >90 (>60 ml/min/1.73 sqM); Albumin 2.3 g/dL (3.5-5.0); Alkaline Phosphatase 99 U/L (38-126); Amylase 35 U/L (30-110); Anion Gap 6 mmol/L; Blood Urea Nitrogen 6 mg/dL (7-17); Calcium 7.8 mg/dL (8.4-10.2); Carbon Dioxide 31 mmol/L (22-30); Chloride 94 mmol/L (98-107); Glucose 116 mg/dL (74-99); Lipase 109 U/L (23-300); Magnesium 1.7 mg/dL (1.6-2.3); Non-African American GFR(CKD) 80 (>60 ml/min/1.73 sqM); Potassium 3.5 mmol/L (3.5-5.1); Sodium 131 mmol/L (137-145); Total Bilirubin 0.9 mg/dL (0.2-1.3)
[2024-04-06 14:39] LABS: INR 1.2 (<1.2); Partial Thromboplastin Time 26.1 sec (22.0-30.0)
[2024-04-06] MEDS ORDERED: NALOXONE 0.4 MG/ML 1 ML VIAL IV PRN (16:52)
[2024-04-06] MEDS ORDERED: MORPHINE SULFATE 4 MG/ML SYRINGE IV PRN (16:52)
[2024-04-06] MEDS ORDERED: ACETAMINOPHEN TAB 325 MG TAB PO PRN (16:52)
[2024-04-06] MEDS: SODIUM CHLORIDE 0.9% 1,000 ML IV SCH (17:46)
[2024-04-06] MEDS ORDERED: HYDROcodone/APAP 10-325MG 1 EACH TAB PO PRN (17:51)
--- NOTE | 2024-04-06 18:06 | P.HPIM ---
History of Present Illness H&P Date: 04/06/24 89 year old F with PMH of chronic hypoxic respiratory failure due to metastatic lung CA presents to the ED for FTT, decreased PO intake and intractable pain. Pain is worse in her RLQ. She reports nausea but no vomiting. Also with pain between her shoulder blades. Follows Dr. Clements and Dr. Shea for her Oncology needs. Currently on Fentanyl 25 mcg Q72H and [place] 10 PRN for pain control. In the ED she underwent extensive evaluation. BP 134/84, RR 20, T 97.2F, HR 74, 86% on RA. CBC, Coag panel, CMP significant for PT 13, INR 1.2, Na 131, Cl 92, bicarb 31, BUN 6, glu 116, Ca 7.8, alb 2.3. Amylase 35, Lipase 109. EKG sinus rhythm with PVCs. CXR nodular density left suprahilar region with small right pleural effusion. KUB nonobstructive bowel gas pattern. General: non toxic, no distress, appears at stated age Derm: warm, dry Head: atraumatic, normocephalic, symmetric Eyes: EOMI, no lid lag, anicteric sclera Mouth: no lip lesion, mucus membranes moist Cardiovascular: S1S2 reg, no murmur Lungs: Decreased BS bilateral, no rhonchi, no rales , no accessory muscle use Abdominal: soft, nontender to palpation, no guarding, no appreciable organomegaly Ext: no gross muscle atrophy, no edema, no contractures Neuro: no focal neuro deficits Psych: Alert, oriented, appropriate affect Based on my assessment of this patient, this patient meets a high complexity level of care. Hyponatremia due to dehydration: NS at 75 cc/hr. Zofran 4 mg IV TID PRN N/V. HypoCl metabolic alkalosis due to poor oral intake: IV hydration as above. Intractable pain due to metastatic cancer: Increase Fentanyl patch to 50 mcg Q72H. Morphine 4 mg IV Q4H PRN for pain. [place] 10 Q8H PRN for pain. Oncology consult. Chronic hypoxic respiratory failure due to metastatic lung CA: Supplemental O2 to maintain O2 sat > 92%. Supratherapeutic INR due to liver metastasis CODE STATUS: NO CODE DVT Prophylaxis: Lovenox SQ GI Prophylaxis: Designated medical POA if patient is not able to make medical decisions for themselves: Daughters I have reviewed the following medical economics consultant notes: ED note I have reviewed the results of the following tests: As above I have ordered the following tests: As above I have discussed the care of this patient with the following independent historian: Family at bedside. I have independently interpreted the following test below: EKG I have discussed the management of this patient with the following physician: ER provider Past Medical History Past Medical History: Cancer Additional Past Medical History / Comment(s): lung CA History of Any Multi-Drug Resistant Organisms: None Reported Additional Past Surgical History / Comment(s): Back surgery Past Psychological History: No Psychological Hx Reported Smoking Status: Former smoker Past Alcohol Use History: None Reported Past Drug Use History: None Reported Medications and Allergies Home Medications Medication Instructions Recorded Confirmed Type Benzonatate [Tessalon Perles] 100 mg PO TID PRN 04/06/24 04/06/24 History Capmatinib Hydrochloride [Tabrecta] 400 mg PO BID@0700,1800 04/06/24 04/06/24 History Cyanocobalamin (Vitamin B-12) 1,000 mcg PO HS@1800 04/06/24 04/06/24 History [Vitamin B-12] Folic Acid 0.8 mg PO HS@1800 04/06/24 04/06/24 History HYDROcodone/APAP 10-325MG [[place] 1 tab PO TID PRN 04/06/24 04/06/24 History 10-325] Omeprazole 20 mg PO DAILY@0700 04/06/24 04/06/24 History Ondansetron [Zofran] 4 mg PO DAILY@0700 04/06/24 04/06/24 History Sennosides [Senokot] 8.6 mg PO BID@0700,1800 04/06/24 04/06/24 History dexAMETHasone [Decadron] 8 mg PO DIRECTED 04/06/24 04/06/24 History droNABinol [Marinol] 2.5 mg PO HS@1800 04/06/24 04/06/24 History fentaNYL 25MCG/HR PATCH [Duragesic 1 patch TRANSDERM Q72H 04/06/24 04/06/24 History 25MCG/HR] Allergies Allergy/AdvReac Type Severity Reaction Status Date / Time No Known Allergies Allergy Verified 04/06/24 17:33 Physical Exam Vitals: Vital Signs Temp Pulse Resp BP Pulse Ox 04/06/24 15:23 92 20 111/62 93 L 04/06/24 13:08 106 H 18 124/81 92 L 04/06/24 12:46 97.2 F L 74 20 134/84 86 L Intake and Output 04/06/24 04/06/24 04/06/24 06:59 14:59 22:59 Other: Weight 47.627 kg Results CBC & Chem 7: 04/06/24 13:46 04/06/24 13:46 Labs: Abnormal Lab Results - Last 24 Hours (Table) 04/06/24 04/06/24 04/06/24 Range/Units 13:46 13:46 13:46 Lymphocytes # 0.4 L (1.0-4.8) k/uL PT 13.0 H (10.0-12.5) sec INR 1.2 H (<1.2) Sodium 131 L (137-145) mmol/L Chloride 94 L (98-107) mmol/L Carbon Dioxide 31 H (22-30) mmol/L BUN 6 L (7-17) mg/dL Glucose 116 H (74-99) mg/dL Calcium 7.8 L (8.4-10.2) mg/dL Total Protein 5.0 L (6.3-8.2) g/dL Albumin 2.3 L (3.5-5.0) g/dL
[2024-04-06] MEDS: FOLIC ACID 1 MG TAB PO SCH (18:31)
[2024-04-06] MEDS: droNABinol 2.5 MG CAP PO SCH (18:31)
[2024-04-06] MEDS ORDERED: FAMOTIDINE 20 MG TAB PO SCH (21:00)
[2024-04-07] MEDS: FAMOTIDINE 20 MG TAB PO SCH (00:12)
[2024-04-07] MEDS: IPRATROPIUM-ALBUTEROL 3 ML NEB INHALATION PRN (01:24)
[2024-04-07 01:39] LABS: Amorphous Sediment,Urine Few /hpf; Appearance,Urine Cloudy (Clear); Bacteria,Urine Occasional /hpf; Bilirubin,Urine Negative (Negative); Blood,Urine Negative (Negative); Color,Urine Yellow; Glucose,Urine (UA) Negative (Negative); Hyaline Casts,Urine 2 /lpf (0-2); Ketones,Urine 1+ (Negative); Leukocyte Esterase,Urine Negative (Negative); Mucus,Urine Many /hpf; Nitrite,Urine Negative (Negative); Protein,Urine Trace (Negative); RBC,Urine 1 /hpf (0-5); Specific Gravity,Urine 1.013 (1.001-1.035); Squamous Epithelial Cell,Urine 11 /hpf (0-4); Urobilinogen,Urine <2.0 mg/dL (<2.0); WBC,Urine 6 /hpf (0-5)
[2024-04-07 04:53] LABS: African American GFR (CKD) >90 (>60 ml/min/1.73 sqM); Anion Gap 3 mmol/L; Blood Urea Nitrogen 4 mg/dL (7-17); Calcium 7.3 mg/dL (8.4-10.2); Carbon Dioxide 28 mmol/L (22-30); Chloride 100 mmol/L (98-107); Glucose 81 mg/dL (74-99); Magnesium 1.7 mg/dL (1.6-2.3); Non-African American GFR(CKD) 84 (>60 ml/min/1.73 sqM); Potassium 3.1 mmol/L (3.5-5.1); Sodium 131 mmol/L (137-145)
[2024-04-07] MEDS: POTASSIUM CHLORIDE ER 20 MEQ TAB.ER PO STA (09:45)
[2024-04-07] MEDS: PANTOPRAZOLE 40 MG TABLET PO SCH (09:45)
[2024-04-07] MEDS: ENOXAPARIN 40 MG/0.4 ML SYRINGE SQ SCH (09:46)
[2024-04-07] MEDS: IOPAMIDOL CONTRAST (ORAL USE) VIAL PO PRN (10:58)
--- NOTE | 2024-04-07 11:38 | P.PN ---
Subjective Progress Note Date: 04/07/24 89 year old F with PMH of chronic hypoxic respiratory failure due to metastatic lung CA presents to the ED for FTT, decreased PO intake and intractable pain. Pain is worse in her RLQ. She reports nausea but no vomiting. Also with pain between her shoulder blades. Follows Dr. Clements and Dr. Shea for her Oncology needs. Currently on Fentanyl 25 mcg Q72H and [place] 10 PRN for pain control. In the ED she underwent extensive evaluation. BP 134/84, RR 20, T 97.2F, HR 74, 86% on RA. CBC, Coag panel, CMP significant for PT 13, INR 1.2, Na 131, Cl 92, bicarb 31, BUN 6, glu 116, Ca 7.8, alb 2.3. Amylase 35, Lipase 109. EKG sinus rhythm with PVCs. CXR nodular density left suprahilar region with small right pleural effusion. KUB nonobstructive bowel gas pattern. 04/07 Patient was seen and examined. Fentanyl patch increased to 50 mcg Q72H. Pain improved. BMP Na 131, K 3.1, BUN 4, Ca 7.3. Mag 1.7. UA neg LE or nitrite. General: non toxic, no distress, appears at stated age Derm: warm, dry Head: atraumatic, normocephalic, symmetric Eyes: EOMI, no lid lag, anicteric sclera Mouth: no lip lesion, mucus membranes moist Cardiovascular: S1S2 reg, no murmur Lungs: Decreased BS bilateral, no rhonchi, no rales , no accessory muscle use Ext: no gross muscle atrophy, no edema, no contractures Neuro: no focal neuro deficits Psych: Alert, oriented, appropriate affect Based on my assessment of this patient, this patient meets a high complexity level of care. Intractable pain due to metastatic cancer: Fentanyl patch 50 mcg Q72H. Morphine 4 mg IV Q4H PRN for pain. [place] 10 Q8H PRN for pain. Discussed with Dr. Nowak, obtain CT CAP. Hypokalemia: KCl 40 meq PO x 1. Hyponatremia due to dehydration: Could be due to SIAHD. NS decreased from 75 to 50 cc/hr. Zofran 4 mg IV TID PRN N/V. Chronic hypoxic respiratory failure due to metastatic lung CA: Supplemental O2 to maintain O2 sat > 92%. FTT: PT and OT consult. Discussed with family regarding options of hospice and palliative care. Supratherapeutic INR due to liver metastasis Resolved: HypoCl metabolic alkalosis CODE STATUS: NO CODE DVT Prophylaxis: Lovenox SQ GI Prophylaxis: Designated medical POA if patient is not able to make medical decisions for themselves: Daughters I have reviewed the following linux consultant notes: I have reviewed the results of the following tests: BMP. Mag. UA I have ordered the following tests: BMP in the AM I have discussed the care of this patient with the following independent historian: RN. Daughter at bedside. I have independently interpreted the following test below: I have discussed the management of this patient with the following physician: Dr. Nowak and Bre PRESTON Objective - Vital Signs Vital signs: Vital Signs Temp 98 F 04/07/24 07:00 Pulse 72 04/07/24 07:00 Resp 18 04/07/24 07:00 BP 101/53 04/07/24 07:00 Pulse Ox 96 04/07/24 07:00 FiO2 Intake & Output 04/06/24 04/07/24 04/07/24 18:59 06:59 18:59 Output Total 200 Balance -200 Weight 47.627 kg 47.627 kg Output: Urine 200 Other: Voiding Method Bedside Commode - Labs CBC & Chem 7: 04/06/24 13:46 04/07/24 04:15 Labs: Abnormal Lab Results - Last 24 Hours (Table) 04/06/24 04/06/24 04/06/24 Range/Units 00:19 13:46 13:46 Lymphocytes # 0.4 L (1.0-4.8) k/uL PT (10.0-12.5) sec INR (<1.2) Sodium 131 L (137-145) mmol/L Potassium (3.5-5.1) mmol/L Chloride 94 L (98-107) mmol/L Carbon Dioxide 31 H (22-30) mmol/L BUN 6 L (7-17) mg/dL Glucose 116 H (74-99) mg/dL Calcium 7.8 L (8.4-10.2) mg/dL Total Protein 5.0 L (6.3-8.2) g/dL Albumin 2.3 L (3.5-5.0) g/dL Urine Appearance Cloudy H (Clear) Urine Protein Trace H (Negative) Urine Ketones 1+ H (Negative) Urine WBC 6 H (0-5) /hpf Ur Squamous Epith Cells 11 H (0-4) /hpf Amorphous Sediment Few H (None) /hpf Urine Bacteria Occasional H (None) /hpf Urine Mucus Many H (None) /hpf 04/06/24 04/07/24 Range/Units 13:46 04:15 Lymphocytes # (1.0-4.8) k/uL PT 13.0 H (10.0-12.5) sec INR 1.2 H (<1.2) Sodium 131 L (137-145) mmol/L Potassium 3.1 L (3.5-5.1) mmol/L Chloride (98-107) mmol/L Carbon Dioxide (22-30) mmol/L BUN 4 L (7-17) mg/dL Glucose (74-99) mg/dL Calcium 7.3 L (8.4-10.2) mg/dL Total Protein (6.3-8.2) g/dL Albumin (3.5-5.0) g/dL Urine Appearance (Clear) Urine Protein (Negative) Urine Ketones (Negative) Urine WBC (0-5) /hpf Ur Squamous Epith Cells (0-4) /hpf Amorphous Sediment (None) /hpf Urine Bacteria (None) /hpf Urine Mucus (None) /hpf
--- NOTE | 2024-04-07 13:13 | CT ---
EXAMINATION TYPE: CT ChestAbdPelvis w con CT DLP: 526.7 mGycm, Automated exposure control for dose reduction was used. DATE OF EXAM: 04/07/2024 12:50 PM COMPARISON: PET CT 01/22/2024, CT chest 10/21/2023, CTA chest 07/23/2023, CT abdomen and pelvis 07/23/2023 CL INICAL INDICATION:Female, 89 years old with history of assess for disease progression, Hx NSCLC; PHH, ca progression Technique: Multiple axial images of the chest, abdomen, and pelvis were obtained following the intrav enous administration of 100 mL Isovue-300. Oral contrast was administered. Two-dimensional coronal an d sagittal reconstructions were obtained. Findings: CHEST: LUNGS/ PLEURA: Biapical pleural-parenchymal scarring. Moderate-sized bilateral pleural effusions are new from prior PET/CT. Centrilobular emphysematous changes. Bilateral lower lobe atelectatic changes . Stable size of 8 mm pulmonary nodule within the right midlung peripherally (series 4, image 27). De monstrate FDG activity in prior PET/CT. Stable scarring within the left upper lobe. Similar left lori hilar soft tissue thickening which is FDG avid on prior PET/CT AIRWAY: Patent and unremarkable.. HEART: Size within normal limits.No pericardial effusion. MEDIASTINUM: No evidence of lymph nodes greater than 1 cm short axis. VASCULATURE: No aortic aneurysm. Mild atherosclerotic calcification of the aorta and its branches. T here are nonocclusive filling defects identified within the right segmental and subsegmental pulmonar y arteries of the middle and lower lobes. Additional filling defects identified within the lingular s ubsegmental branches. No evidence for right heart strain. MUSCULOSKELETAL: Redemonstration of osseous metastatic lesions identified within the osseous structur es including the T6 vertebral body and left pedicle, right posterior ninth rib, posterior right 12th rib and T12 vertebral body with lamina, transverse processes, and pedicle. This is more sclerotic fro m prior exam. Left T7 transverse process. These lesions are more sclerotic when compared to prior PET /CT. SOFT TISSUES/LYMPH NODES: Unremarkable. LOWER NECK: Subcentimeter hypodense nodules within the thyroid gland. ABDOMEN: ABDOMEN LIVER: Focal fatty infiltration adjacent to the falciform ligament in segment IVb. Subcentimeter stab le cysts within the right hepatic lobe. Stable enhancing 1.2 cm lesion within the right hepatic lobe (series 3, image 65). This corresponds to FDG activity on prior PET CT and is consistent with metasta sis. GALLBLADDER AND BILE DUCTS: Unremarkable. PANCREAS: Unremarkable. SPLEEN: Unremarkable. ADRENAL GLANDS: Unremarkable. KIDNEYS AND URETERS: No evidence of hydronephrosis or renal calculus. The kidneys enhance symmetrical ly. Right renal 2.2 cm cyst. Contrast is demonstrated within both collecting systems on the delayed p hase. PELVIS BLADDER: Unremarkable REPRODUCTIVE: Unremarkable. ABDOMEN & PELVIS STOMACH AND BOWEL: Stomach and duodenum are unremarkable. Distal colonic diverticulosis without evide nce for acute diverticulitis. Enteric contrast reaches the mid small bowel. No evidence of bowel obst ruction. PERITONEUM: No evidence of pneumoperitoneum or free fluid. VASCULATURE: No evidence of aortic aneurysm. Mild atherosclerotic calcification of the aorta and its branches. MUSCULOSKELETAL: Periphery sclerotic lesions involving the L2 vertebral body with development of supe rior central compression collapse of approximately 20%. No retropulsion. Additional new sclerotic les ions involving L4 vertebral body with anterior wedge compression measuring up to 40% without retropul emilee. Previously seen predominantly right hemisacral lesion demonstrated with new sclerotic appearanc e. Additional sclerotic foci identified within the left ischial tuberosity and right inferior pubic r amus. Additional foci identified within the left iliac bone. LYMPH NODES: No gross evidence for lymphadenopathy. SOFT TISSUE/ABDOMINAL WALL: Diffuse anasarca. IMPRESSION: 1. Development of bilateral nonocclusive pulmonary emboli without evidence for right heart strain. 2. Similar left perihilar soft tissue thickening related to metastatic disease. Additional stable ri ght midlung peripheral nodule which is FDG avid. 3. Stable hepatic metastasis. 4. Redemonstration of scattered osseous metastatic lesions which now demonstrate more increased scle rotic appearance suggesting treatment. There has been development of compression deformities involvin g the L2 and L4 vertebral bodies as described above. 5. Development of moderate bilateral pleural effusions. A [place] critical message alert has been initiated for [facility] via the [employer] Critical Results System on 04/07/2024 1:09 PM. This message alert has been sent to [facility] via the [employer] marija provided by the clinician for the receipt of Radiology Critical Findings. Message ID [id number]. [facility], , 04/07/2024 1:11 PM
[2024-04-07] MEDS ORDERED: HEPARIN SODIUM 1,000 UN/ML (10ML VL) IV PRN (13:43)
--- NOTE | 2024-04-07 14:33 | US ---
EXAMINATION TYPE: US venous doppler duplex LE DATE OF EXAM: 04/07/2024 2:26 PM COMPARISON: NONE CLINICAL INDICATION: Female, 89 years old with history of PE, baseline; PE per order. Bilateral ankle swelling per patient. TECHNIQUE: The lower extremity deep venous system is examined utilizing real time linear array sonog peewee with graded compression, color doppler sonography, and spectral doppler. SIDE PERFORMED: Bilateral FINDINGS: VESSELS IMAGED: Common Femoral Vein Deep Femoral Vein Greater Saphenous Vein * Femoral Vein Popliteal Vein Small Saphenous Vein * Proximal Calf Veins (* superficial vessels) Right Leg: No evidence of DVT, Color Doppler imaging shows patency of the vessels. Spectral waveform s are within normal limits. Peroneals not visualized. Left Leg: Appears positive for DVT in the calf- PTVs appear noncompressible and do not show color flow. Internal echoes seen. Prox calf veins not seen behind the knee. Peroneals not visualized. IMPRESSION: Left lower extremity DVT as noted above. [facility], , 04/07/2024 2:31 PM
[2024-04-07 14:35] LABS: WBC 6.2 k/uL (3.8-10.6)
[2024-04-07 14:36] LABS: Basophils % (A) 1 %; Eosinophils # (A) 0.2 k/uL (0-0.7); Eosinophils % (A) 4 %; HCT 35.8 % (34.0-46.0); HGB 11.5 gm/dL (11.4-16.0); Hypochromasia Moderate; Lymphocytes # (A) 0.9 k/uL (1.0-4.8); Lymphocytes % (A) 14 %; MCH 29.8 pg (25.0-35.0); MCV 93.1 fL (80.0-100.0); Mean Platelet Volume 7.3; Monocytes # (A) 0.4 k/uL (0-1.0); Monocytes % (A) 6 %; Neutrophils # (A) 4.5 k/uL (1.3-7.7); Neutrophils % (A) 73 %; Platelet Count 202 k/uL (150-450); RBC 3.84 m/uL (3.80-5.40); RDW 15.3 % (11.5-15.5)
[2024-04-07] MEDS: HEPARIN SODIUM 1,000 UN/ML (10ML VL) IV ONE (14:36)
[2024-04-07] MEDS: HEPARIN SOD,PORK IN 0.45% NACL 25,000 UNIT in 0.45% NACL 1 250ML.BAG IV SCH (14:36)
[2024-04-07 14:40] VITALS: BMI 18.6
[2024-04-07 14:48] LABS: INR 1.3 (<1.2); Prothrombin Time 13.3 sec (10.0-12.5)
[2024-04-07 14:49] LABS: Partial Thromboplastin Time 25.3 sec (22.0-30.0)
--- NOTE | 2024-04-07 16:06 | P.CONS ---
History of Present Illness - Reason for Consult Consult date: 04/07/24 NSCLC, progressive medical decline Requesting physician: Chas Chavez - Chief Complaint weakness, anorexia - History of Present Illness Ms. Patricia is an 88-year-old woman who with recent diagnosis of metastatic NSCLC in October 2023. She had 10 fractions of radiation October to November of 2022 for suspected stage IIA lung cancer of the left upper lobe (she deferred biopsy at that time). Post radiation she developed progressive right flank and back pain. MRI of the spine December 2023 reported suspicions for osseous metastases. PET/CT on 01/10/2024 noted FDG avid lesion in the right upper lung along with precarinal lymphadenopathy, liver metastases, and osseous metastases to the lumbar/thoracic spine and 9th and 12th right ribs. She underwent 5 fractions of palliative radiation to the sacrum and left lumbar spine in December 2023 along with palliative radiation to the 9th and 12th ribs in January 2024. 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 This was reviewed at her hospitalization early Feb for intractable pain. She started targeted agent capmatinib 400 mg twice daily soon after discharge 02/26/24. She was seen in the office twice since that time, seen Dr. Vannesa Clements 03/20/2024. At that time patient was doing okay on treatment, fatigue and poor appetite were reported, she was started on marinol. Plan for treatment follow-up PET scan in April. Patient was brought into the hospital by her daughter, who reports progressive decline in the patient. Worsening pain, mostly in the upper back and lower abdomen, swelling in legs. Daughter reports pt is "bedridden". No reported of fevers, nausea, vomiting or diarrhea. Shortness of breath is stable. She is reporting improvement in her pain since receiving pain medications here in the hospital, fentanyl has been increased. Patient and family are inquiring about imaging to assess response to oral treatment that she has been on for about 5 weeks. Do to her gradual decline, if there is no significant improvements on imaging, they may consider hospice. Review of Systems 10 point ROS is neg except as stated in HPI Past Medical History Past Medical History: Cancer, COPD Additional Past Medical History / Comment(s): lung CA History of Any Multi-Drug Resistant Organisms: None Reported Additional Past Surgical History / Comment(s): Back surgery Past Anesthesia/Blood Transfusion Reactions: No Reported Reaction Past Psychological History: No Psychological Hx Reported Smoking Status: Former smoker Past Alcohol Use History: None Reported Past Drug Use History: None Reported Medications and Allergies Home Medications Medication Instructions Recorded Confirmed Type Benzonatate [Tessalon Perles] 100 mg PO TID PRN 04/06/24 04/06/24 History Capmatinib Hydrochloride [Tabrecta] 400 mg PO BID@0700,1800 04/06/24 04/06/24 History Cyanocobalamin (Vitamin B-12) 1,000 mcg PO HS@1800 04/06/24 04/06/24 History [Vitamin B-12] Folic Acid 0.8 mg PO HS@1800 04/06/24 04/06/24 History HYDROcodone/APAP 10-325MG [[place] 1 tab PO TID PRN 04/06/24 04/06/24 History 10-325] Omeprazole 20 mg PO DAILY@0700 04/06/24 04/06/24 History Ondansetron [Zofran] 4 mg PO DAILY@0700 04/06/24 04/06/24 History Sennosides [Senokot] 8.6 mg PO BID@0700,1800 04/06/24 04/06/24 History dexAMETHasone [Decadron] 8 mg PO DIRECTED 04/06/24 04/06/24 History droNABinol [Marinol] 2.5 mg PO HS@1800 04/06/24 04/06/24 History fentaNYL 25MCG/HR PATCH [Duragesic 1 patch TRANSDERM Q72H 04/06/24 04/06/24 History 25MCG/HR] Allergies Allergy/AdvReac Type Severity Reaction Status Date / Time No Known Allergies Allergy Verified 04/06/24 17:33 Physical Exam Vitals: Vital Signs Temp Pulse Pulse Resp BP BP Pulse Ox 04/07/24 09:56 80 04/07/24 09:47 76 96 04/07/24 07:00 98 F 72 18 101/53 96 04/07/24 01:36 88 04/07/24 01:26 90 04/07/24 00:32 97.7 F 89 18 122/70 96 04/06/24 20:08 98.1 F 104 H 17 103/60 98 04/06/24 19:40 98.0 F 84 18 108/66 93 L 04/06/24 18:27 98.3 F 88 18 90/64 92 L 04/06/24 15:23 92 20 111/62 93 L 04/06/24 13:08 106 H 18 124/81 92 L 04/06/24 12:46 97.2 F L 74 20 134/84 86 L Intake and Output 04/06/24 04/07/24 04/07/24 22:59 06:59 14:59 Output Total 200 Balance -200 Output: Urine 200 Other: Voiding Method Bedside Commode Weight 47.627 kg - Constitutional General appearance: cooperative, no acute distress, thin - EENT Eyes: anicteric sclerae, EOMI ENT: hearing grossly normal - Neck Neck: no lymphadenopathy - Respiratory Respiratory: bilateral: diminished - Cardiovascular Rhythm: regular Heart sounds: normal: S1, S2 Abnormal Heart Sounds: no systolic murmur, no diastolic murmur, no rub, no S3 Gallop, no S4 Gallop, no click, no other leg Peripheral Edema: right: 1+, left: 2+ - Gastrointestinal General gastrointestinal: no absent bowel sounds, no decreased bowel sounds, no distended, no hepatomegaly, no hyperactive bowel sounds, normal bowel sounds, no organomegaly, no rigid, no scaphoid, soft, no splenomegaly, no tenderness, no umbilical hernia, no ventral hernia - Integumentary Integumentary: normal - Neurologic Neurologic: CNII-XII intact - Musculoskeletal Musculoskeletal: generalized weakness - Psychiatric Psychiatric: A&O x's 3, appropriate affect, intact judgment & insight Results CBC & Chem 7: 04/07/24 14:23 04/07/24 04:15 Labs: Abnormal Lab Results - Last 24 Hours (Table) 04/06/24 04/06/24 04/06/24 Range/Units 00:19 13:46 13:46 Lymphocytes # 0.4 L (1.0-4.8) k/uL PT (10.0-12.5) sec INR (<1.2) Sodium 131 L (137-145) mmol/L Potassium (3.5-5.1) mmol/L Chloride 94 L (98-107) mmol/L Carbon Dioxide 31 H (22-30) mmol/L BUN 6 L (7-17) mg/dL Glucose 116 H (74-99) mg/dL Calcium 7.8 L (8.4-10.2) mg/dL Total Protein 5.0 L (6.3-8.2) g/dL Albumin 2.3 L (3.5-5.0) g/dL Urine Appearance Cloudy H (Clear) Urine Protein Trace H (Negative) Urine Ketones 1+ H (Negative) Urine WBC 6 H (0-5) /hpf Ur Squamous Epith Cells 11 H (0-4) /hpf Amorphous Sediment Few H (None) /hpf Urine Bacteria Occasional H (None) /hpf Urine Mucus Many H (None) /hpf 04/06/24 04/07/24 Range/Units 13:46 04:15 Lymphocytes # (1.0-4.8) k/uL PT 13.0 H (10.0-12.5) sec INR 1.2 H (<1.2) Sodium 131 L (137-145) mmol/L Potassium 3.1 L (3.5-5.1) mmol/L Chloride (98-107) mmol/L Carbon Dioxide (22-30) mmol/L BUN 4 L (7-17) mg/dL Glucose (74-99) mg/dL Calcium 7.3 L (8.4-10.2) mg/dL Total Protein (6.3-8.2) g/dL Albumin (3.5-5.0) g/dL Urine Appearance (Clear) Urine Protein (Negative) Urine Ketones (Negative) Urine WBC (0-5) /hpf Ur Squamous Epith Cells (0-4) /hpf Amorphous Sediment (None) /hpf Urine Bacteria (None) /hpf Urine Mucus (None) /hpf Chest x-ray: report reviewed Abdominal x-ray: report reviewed Assessment and Plan (1) Weakness Current Visit: Yes Status: Acute Priority: High Code(s): R53.1 - WEAKNESS SNOMED Code(s): 01112701 (2) Metastatic lung cancer (metastasis from lung to other site) Current Visit: Yes Status: Chronic Priority: Medium Code(s): C34.90 - MALIGNANT NEOPLASM OF UNSP PART OF UNSP BRONCHUS OR LUNG SNOMED Code(s): 63924219 (3) Pain due to malignant neoplasm metastatic to bone Current Visit: Yes Status: Chronic Priority: High Code(s): G89.3 - NEOPLASM RELATED PAIN (ACUTE) (CHRONIC); C79.51 - SECONDARY MALIGNANT NEOPLASM OF BONE SNOMED Code(s): 214815345 (4) Pulmonary embolism Current Visit: Yes Status: Acute Priority: High Code(s): I26.99 - OTHER PULMONARY EMBOLISM WITHOUT ACUTE COR PULMONALE SNOMED Code(s): 73910775 (5) DVT (deep venous thrombosis) Current Visit: Yes Status: Acute Priority: High Code(s): I82.409 - ACUTE EMBOLISM AND THOMBOS UNSP DEEP VN UNSP LOWER EXTREMITY SNOMED Code(s): 262310280 Plan: Generalized weakness and progressive physical decline -It was discussed with patient, and her family at the bedside, that the decline could be attributed to treatment of disease or progressive disease. They verbalized understanding. -CT CAP with contrast ordered to assess disease. Was also reviewed that pt has been on oral treatment for about 5 weeks. Typically with oral, targeted agents, imaging usually is not ordered for about 8 to 12 weeks after starting, may be difficult to determine treatment effects. CT scan will be ordered per their request. Will follow-up on the same Red alert page-pulmonary embolism findings on CT. 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 Persistent complaints of pain, pain medications have been being adjusted. Fatigue and weakness-persist. Anorexia, recently started on Marinol. -PET/CT scheduled for April 30 at 115. Family voicing concerns that they do not think that they can get her out of the house for that imaging. As above, CT ordered Intractable pain of malignancy -Pain meds cont to be adjusted, fentanyl increased today. Cont to assess and adjust for pt comfort -Meds to prevent narcotic induced constipation ordered Doctor attests: I performed a history and physical examination of this patient, developed impression and plan of care. Discussed with dictator. I agree with dictators note, documented as a scribe. Time with Patient: Greater than 30 (>60min on case, counseling, coordinating ca re)
[2024-04-07] MEDS: IPRATROPIUM-ALBUTEROL 3 ML NEB INHALATION SCH (16:49)
[2024-04-08 05:08] LABS: INR 1.3 (<1.2); Partial Thromboplastin Time 56.5 sec (22.0-30.0); Prothrombin Time 13.5 sec (10.0-12.5)
[2024-04-08 08:18] LABS: African American GFR (CKD) >90 (>60 ml/min/1.73 sqM); Anion Gap 1 mmol/L; Blood Urea Nitrogen 3 mg/dL (7-17); Carbon Dioxide 28 mmol/L (22-30); Chloride 101 mmol/L (98-107); Glucose 71 mg/dL (74-99); Non-African American GFR(CKD) 88 (>60 ml/min/1.73 sqM); Potassium 3.3 mmol/L (3.5-5.1); Sodium 130 mmol/L (137-145)
[2024-04-08] MEDS: POTASSIUM CHLORIDE ER 20 MEQ TAB.ER PO STA (08:34)
[2024-04-08 08:48] LABS: Basophils # (A) 0.04 X 10*3/uL (0.00-0.10); Basophils % (A) 1.1 %; Eosinophils # (A) 0.26 X 10*3/uL (0.04-0.35); HCT 30.1 % (37.2-46.3); HGB 9.6 g/dL (12.0-15.0); Lymphocytes # (A) 0.66 X 10*3/uL (0.90-5.00); Lymphocytes % (A) 17.6 %; MCH 28.8 pg (27.0-32.0); MCHC 31.9 g/dL (32.0-37.0); MCV 90.4 FL (80.0-97.0); Mean Platelet Volume 9.6 FL (9.5-12.2); Monocytes # (A) 0.53 X 10*3/uL (0.20-1.00); Monocytes % (A) 14.2 %; NRBC Per 100 WBC 0 X 10*3/uL (0.00-0.01); Neutrophils # (A) 2.24 X 10*3/uL (1.80-7.70); Neutrophils % (A) 59.8 %; Platelet Count 176 X 10*3/uL (140-440); RBC 3.33 X 10*6/uL (4.10-5.20); RDW 15.6 % (11.5-14.5); WBC 3.74 X 10*3/uL (4.50-10.00)
--- NOTE | 2024-04-08 11:47 | CA ---
Transthoracic Echo Report Name: Fifi Patricia Age: 89 Gender: F : 1935 Exam Date: 04/08/2024 09:13 Exam Location: [facility] Ht (in): 63 Wt (lb): 105 Ordering Physician: Val Cruz MD Attending/Referring Phys: Plug And Mold Finisher Mandy Andino RDCS Procedure CPT: Indications: PE Cardiac Hx: PE Technical Quality: Fair Contrast 1: Total Dose (mL): Contrast 2: Total Dose (mL): MEASUREMENTS (Male / Female) Normal Values 2D ECHO LV Diastolic Diameter PLAX 3.9 cm 4.2 - 5.9 / 3.9 - 5.3 cm LV Systolic Diameter PLAX 2.2 cm IVS Diastolic Thickness 0.8 cm 0.6 - 1.0 / 0.6 - 0.9 cm LVPW Diastolic Thickness 0.8 cm 0.6 - 1.0 / 0.6 - 0.9 cm LV Relative Wall Thickness 0.4 RV Internal Dim ED PLAX 1.5 cm LA Systolic Diameter LX 3.2 cm 3.0 - 4.0 / 2.7 - 3.8 cm LV Diastolic Volume MOD BP 36.1 cm??? 67 - 155 / 56 - 104 cm??? LV Systolic Volume MOD BP 9.6 cm??? 22 - 58 / 19 - 49 cm??? LV Ejection Fraction MOD BP 73.4 % >= 55 % LV Cardiac Index MOD BP 1940.4 cm???/min???m??? LV Diastolic Volume MOD 4C 44.0 cm??? LV Systolic Volume MOD 4C 11.1 cm??? LV Ejection Fraction MOD 4C 74.7 % LV Cardiac Index MOD 4C 2406.4 cm???/min???m??? LV Diastolic Length 4C 5.6 cm LV Systolic Length 4C 5.0 cm LV Diastolic Volume MOD 2C 28.7 cm??? LV Systolic Volume MOD 2C 8.2 cm??? LV Ejection Fraction MOD 2C 71.3 % LV Cardiac Index MOD 2C 1495.5 cm???/min???m??? LV Diastolic Length 2C 5.9 cm LV Systolic Length 2C 5.1 cm LA Volume 22.9 cm??? 18 - 58 / 22 - 52 cm??? LA Volume Index 15.8 cm???/m??? 16 - 28 cm???/m??? M-MODE Aortic Root Diameter MM 2.8 cm LA Systolic Diameter MM 2.5 cm LA Ao Ratio MM 0.9 AV Cusp Separation MM 1.7 cm DOPPLER MV Area PHT 2.2 cm??? Mitral E Point Velocity 79.0 cm/s Mitral A Point Velocity 99.2 cm/s Mitral E to A Ratio 0.8 MV Deceleration Time 339.6 ms TR Peak Velocity 369.1 cm/s TR Peak Gradient 54.5 mmHg Right Ventricular Systolic Press 61.1 mmHg FINDINGS Left Ventricle Left ventricular ejection fraction is estimated at 60-65 %. No obvious regional wall motion abnormalities. Left ventricular cavity size normal. Left ventricular wall thickness normal. D-shaped ventricle consistent with RVPO. Right Ventricle Severe right ventricular dilatation. Severe pulmonary hypertension. Right ventricular systolic pressure estimated at 61mmHg. Reduced right ventricular global systolic function. Septal flattening consistent with RVPO. Right Atrium Moderate right atrial dilatation. Left Atrium Normal left atrial size. Mitral Valve Structurally normal mitral valve. Mitral valve thickened. Mild mitral regurgitation. Aortic Valve Trileaflet aortic valve. Diffuse thickening (sclerosis) of the aortic valve cusps without reduced excursion. No aortic regurgitation. Tricuspid Valve Annular dilatation of the tricuspid valve. [id number] tricuspid regurgitation. No tricuspid stenosis. Pulmonic Valve Structurally normal pulmonic valve. Trace pulmonic regurgitation. No pulmonic stenosis. Pericardium Left pleural effusion. Aorta Normal size aortic root and proximal ascending aorta. CONCLUSIONS LVEF 60 to 65% No obvious regional wall motion abnormality RV dilatation with signs of RV pressure overload. Severe pulmonary hypertension with RVSP 61 mmHg Moderate right atrial dilatation Mild mitral regurgitation Aortic valve sclerosis Moderate to severe tricuspid regurgitation Previewed by: Dr Gregory Garza (Electronically Signed) Final Date: 08 April 2024 11:46
--- NOTE | 2024-04-08 12:04 | P.PN ---
Subjective Progress Note Date: 04/08/24 89 year old F with PMH of chronic hypoxic respiratory failure due to metastatic lung CA presents to the ED for FTT, decreased PO intake and intractable pain. Pain is worse in her RLQ. She reports nausea but no vomiting. Also with pain between her shoulder blades. Follows Dr. Clements and Dr. Shea for her Oncology needs. Currently on Fentanyl 25 mcg Q72H and Exline 10 PRN for pain control. In the ED she underwent extensive evaluation. BP 134/84, RR 20, T 97.2F, HR 74, 86% on RA. CBC, Coag panel, CMP significant for PT 13, INR 1.2, Na 131, Cl 92, bicarb 31, BUN 6, glu 116, Ca 7.8, alb 2.3. Amylase 35, Lipase 109. EKG sinus rhythm with PVCs. CXR nodular density left suprahilar region with small right pleural effusion. KUB nonobstructive bowel gas pattern. 04/07 Patient was seen and examined. Fentanyl patch increased to 50 mcg Q72H. Pain improved. BMP Na 131, K 3.1, BUN 4, Ca 7.3. Mag 1.7. UA neg LE or nitrite. 04/08 Patient was seen and examined. Better controlled pain. CT done yesterday shows bilateral PE, similar left perihilar soft tissue thickening, stable R midlung nodule, scattered osseous metastatic lesions, moderate pleural effusion. Started on heparin drip. Venous doppler + for DVT LLE. CBC and BMP WBC 3.74, RBC 3.33, Hg 9.6, Hct 30.1, PT 13.5, INR 1.3, APTT 56.5, Na 130, K 3.3, BUN 3, Cr 0.49, glu 71, Ca 7. General: non toxic, no distress, appears at stated age Derm: warm, dry Head: atraumatic, normocephalic, symmetric Eyes: EOMI, no lid lag, anicteric sclera Mouth: no lip lesion, mucus membranes moist Cardiovascular: S1S2 reg, no murmur Lungs: Decreased BS bilateral, no rhonchi, no rales , no accessory muscle use Ext: no gross muscle atrophy, no edema, no contractures Neuro: no focal neuro deficits Psych: Alert, oriented, appropriate affect Based on my assessment of this patient, this patient meets a high complexity level of care. Intractable pain due to metastatic cancer: Fentanyl patch 50 mcg Q72H. Morphine 4 mg IV Q4H PRN for pain. Exline 10 Q8H PRN for pain. Discussed with Bre DIRECTOR OF STRATEGIC MARKETING, to discuss CT results with patient. Pulmonary embolus and LLE DVT: Continue heparin drip. Monitor APTT. Transition to NOAC when OK with Oncology. Hypokalemia: KCl 40 meq PO x 1. Hyponatremia due to dehydration: Could be due to SIAHD. NS 50 cc/hr. Zofran 4 mg IV TID PRN N/V. Chronic hypoxic respiratory failure due to metastatic lung CA: Supplemental O2 to maintain O2 sat > 92%. FTT: PT and OT consult. Discussed with family regarding options of hospice and palliative care. Supratherapeutic INR due to liver metastasis Resolved: HypoCl metabolic alkalosis CODE STATUS: NO CODE DVT Prophylaxis: Heparin drip GI Prophylaxis: Designated medical POA if patient is not able to make medical decisions for themselves: Daughters I have reviewed the following lean process deployment consultant notes: Oncology. I have reviewed the results of the following tests: CBC, BMP, Coag, CT CAP, Venous doppler I have ordered the following tests: BMP in the AM. Echo I have discussed the care of this patient with the following independent historian: Son at bedside. I have independently interpreted the following test below: I have discussed the management of this patient with the following physician: Demi kaur NP Objective - Vital Signs Vital signs: Vital Signs Temp 98.3 F 04/08/24 07:33 Pulse 88 04/08/24 11:35 Resp 17 04/08/24 10:54 BP 105/53 04/08/24 07:33 Pulse Ox 95 04/08/24 08:39 FiO2 Intake & Output 04/07/24 04/08/24 04/08/24 18:59 06:59 18:59 Intake Total 86.868 Output Total 150 Balance -63.132 Weight 47.627 kg Intake: Intake, IV Titration 86.868 Amount Heparin Sod,Pork in 0.45% 86.868 NaCl 25,000 unit In 0.45 % NaCl 1 250ml.bag @ 12 UNITS/KG/HR 5.715 mls/hr IV .Q24H MARCELINO Rx#: [id number] Output: Urine 150 Other: Voiding Method Bedside Commode Bedside Commode Bedside Commode # Voids 1 1 - Labs CBC & Chem 7: 04/08/24 04:13 04/08/24 04:35 Labs: Abnormal Lab Results - Last 24 Hours (Table) 04/07/24 04/07/24 04/07/24 Range/Units 14:23 14:23 20:19 WBC (4.50-10.00) X 10*3/uL RBC (4.10-5.20) X 10*6/uL Hgb (12.0-15.0) g/dL Hct (37.2-46.3) % MCHC (32.0-37.0) g/dL RDW (11.5-14.5) % Lymphocytes # 0.9 L (1.0-4.8) k/uL PT 13.3 H (10.0-12.5) sec INR 1.3 H (<1.2) APTT 59.7 H (22.0-30.0) sec Sodium (137-145) mmol/L Potassium (3.5-5.1) mmol/L BUN (7-17) mg/dL Creatinine (0.52-1.04) mg/dL Glucose (74-99) mg/dL Calcium (8.4-10.2) mg/dL 04/08/24 04/08/24 04/08/24 Range/Units 04:13 04:13 04:35 WBC 3.74 L (4.50-10.00) X 10*3/uL RBC 3.33 L (4.10-5.20) X 10*6/uL Hgb 9.6 L (12.0-15.0) g/dL Hct 30.1 L (37.2-46.3) % MCHC 31.9 L (32.0-37.0) g/dL RDW 15.6 H (11.5-14.5) % Lymphocytes # 0.66 L (1.0-4.8) k/uL PT 13.5 H (10.0-12.5) sec INR 1.3 H (<1.2) APTT 56.5 H (22.0-30.0) sec Sodium 130 L (137-145) mmol/L Potassium 3.3 L (3.5-5.1) mmol/L BUN 3 L (7-17) mg/dL Creatinine 0.49 L (0.52-1.04) mg/dL Glucose 71 L (74-99) mg/dL Calcium 7.0 L (8.4-10.2) mg/dL
--- NOTE | 2024-04-08 16:41 | CDI ---
Documentation Clarification Form Date: 04/08/2024 04:22:12 PM From: Edelmira Taylor RN,CCDS Phone: [phone] Admit Date: 04/06/2024 04:53:00 PM Patient Name: Fifi Patricia Visit Number: [id number] Discharge Date: ATTENTION: The Clinical Documentation Specialists (CDI) and [facility] Coding Staff appreciate your assistance in clarifying documentation. Please respond to the clarification below the line at the bottom and electronically sign. The CDI & [facility] Coding staff will review the response and follow-up if needed. Please note: Queries are made part of the Legal Health Record. If you have any questions, please contact the author of this message via ITS. Doctor Val Cruz The Registered Dietitian assessment on 04/07/24 indicates this patient meets criteria for malnutrition chronic, severe. Based on this information and the findings below, is there an additional diagnosis that is clinically appropriate for this patient? History/Risk Factors: metastatic stage IV lung cancer, former smoker Clinical Indicators: 89-year-old female with metastatic stage IV lung cancer presenting with concerns for dehydration and pain. Current BMI: 18.6 Chronic respiratory failure. metastatic lung CA RD Consult Assessment: Intake poor 0=25% Underfeeding Appetite: Poor, Antiemetic: Meds Proton Pump Inhibitors, Marinol, Pepcid, Folic acid Lab: NA 131, K+ 3.1 BUN 4 Ca 7.3 Underweight Nutrition Diagnosis: Malnutrition chronic, severe Related to as evidenced by cancer cachexia. muscle wasting, fat wasting consuming <75% of EER muscle wasting to temporal region, subcutaneous fat loss to buccal fat pads Treatment: General/healthful diet (does not like ensure) High protein options, RD provided menus for meal ordering Monitor PO Is there an additional diagnosis that is clinically appropriate for this patient? [ ] Mild Protein-Calorie Malnutrition [ ] Moderate Protein-Calorie Malnutrition [ x] Severe Protein-Calorie Malnutrition [ ] No additional diagnosis/Not clinically significant [ ] Other condition, please specify [ ] Unable to Determine (Template Last Revised: November 2022) MTDD
--- NOTE | 2024-04-08 21:17 | P.PN ---
Subjective Progress Note Date: 04/08/24 Principal diagnosis: Weakness, anorexia. Metastatic NSCLC IN f/u today, pt is reporting good pain control, she is still very weak, appetite is poor, no SOB or cough, N,V, abd pain. Objective - Vital Signs Vital signs: Vital Signs Temp 98.1 F 04/08/24 19:23 Pulse 78 04/08/24 20:44 Resp 18 04/08/24 19:23 BP 106/64 04/08/24 19:23 Pulse Ox 96 04/08/24 19:23 FiO2 Intake & Output 04/08/24 04/08/24 04/09/24 06:59 18:59 06:59 Intake Total 86.868 668.866 Output Total 150 Balance -63.132 668.866 Intake: Intake, IV Titration 86.868 668.866 Amount Heparin Sod,Pork in 0.45% 86.868 68.866 NaCl 25,000 unit In 0.45 % NaCl 1 250ml.bag @ 12 UNITS/KG/HR 5.715 mls/hr IV .Q24H [facility] Rx#: [id number] Sodium Chloride 0.9% 1, 600 000 ml @ 50 mls/hr IV . Q20H [facility] Rx#:[id number] Output: Urine 150 Other: Voiding Method Bedside Commode Bedside Commode # Voids 2 - Constitutional General appearance: Present: cooperative, no acute distress, thin - EENT Eyes: Present: anicteric sclerae, EOMI ENT: Present: hearing grossly normal - Respiratory Details: resp even and unlabored at rest - Cardiovascular Details: skin warm and dry to touch - Neurologic Neurologic: Present: CNII-XII intact - Musculoskeletal Musculoskeletal: Present: generalized weakness - Psychiatric Psychiatric: Present: A&O x's 3, appropriate affect, intact judgment & insight - Labs CBC & Chem 7: 04/08/24 04:13 04/08/24 04:35 Labs: Abnormal Lab Results - Last 24 Hours (Table) 04/08/24 04/08/24 04/08/24 Range/Units 04:13 04:13 04:35 WBC 3.74 L (4.50-10.00) X 10*3/uL RBC 3.33 L (4.10-5.20) X 10*6/uL Hgb 9.6 L (12.0-15.0) g/dL Hct 30.1 L (37.2-46.3) % MCHC 31.9 L (32.0-37.0) g/dL RDW 15.6 H (11.5-14.5) % Lymphocytes # 0.66 L (0.90-5.00) X 10*3/uL PT 13.5 H (10.0-12.5) sec INR 1.3 H (<1.2) APTT 56.5 H (22.0-30.0) sec Sodium 130 L (137-145) mmol/L Potassium 3.3 L (3.5-5.1) mmol/L BUN 3 L (7-17) mg/dL Creatinine 0.49 L (0.52-1.04) mg/dL Glucose 71 L (74-99) mg/dL Calcium 7.0 L (8.4-10.2) mg/dL - Imaging and Cardiology CT scan - abdomen: report reviewed CT scan - chest: report reviewed CT scan - pelvis: report reviewed Venous US: report reviewed Assessment and Plan (1) Weakness Current Visit: Yes Status: Acute Priority: High Code(s): R53.1 - WEAKNESS SNOMED Code(s): 46916647 (2) Metastatic lung cancer (metastasis from lung to other site) Current Visit: Yes Status: Chronic Priority: Medium Code(s): C34.90 - MALIGNANT NEOPLASM OF UNSP PART OF UNSP BRONCHUS OR LUNG SNOMED Code(s): 85981086 (3) Pain due to malignant neoplasm metastatic to bone Current Visit: Yes Status: Chronic Priority: High Code(s): G89.3 - NEOPLASM RELATED PAIN (ACUTE) (CHRONIC); C79.51 - SECONDARY MALIGNANT NEOPLASM OF BONE SNOMED Code(s): 108416992 (4) Pulmonary embolism Current Visit: Yes Status: Acute Priority: High Code(s): I26.99 - OTHER PULMONARY EMBOLISM WITHOUT ACUTE COR PULMONALE SNOMED Code(s): 16084168 (5) DVT (deep venous thrombosis) Current Visit: Yes Status: Acute Priority: High Code(s): I82.409 - ACUTE EMBOLISM AND THOMBOS UNSP DEEP VN UNSP LOWER EXTREMITY SNOMED Code(s): 926783632 Plan: Generalized weakness and progressive physical decline -It was discussed with patient, and her family at the bedside, that the decline could be attributed to treatment of disease or progressive disease. They verbalized understanding. -CT CAP with contrast ordered to assess disease. Was also reviewed that pt has been on oral treatment for about 5 weeks. Typically with oral, targeted agents, imaging usually is not ordered for about 8 to 12 weeks after starting, may be difficult to determine treatment effects. CT scan will be ordered per their request. Pulmonary embolism Red alert page-pulmonary embolism found on CT. -Hep drip started. BLE doppler for baseline did show LLE DVT. Tolerating heparin drip at this time. 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 Fatigue and weakness- persist. Anorexia, recently started on Marinol. -PET/CT scheduled for April 30 at 115. Family voicing concerns that they do not think that they can get her out of the house for that imaging. As above, CT ordered -CT of the chest abdomen and pelvis with contrast reports the nonocclusive bilateral pulmonary emboli no evidence for right heart strain. Similar left perihilar soft tissue thickening, additional stable right midlung peripheral nodule. Stable hepatic metastases. Redemonstration of scattered osseous metastatic lesions but they are demonstrating a more sclerotic appearance suggesting treatment. There is development of compression Scott for midis involving L2 and L4. Development of moderate bilateral pleural effusions. So, on 5 weeks of oral treatment patient's disease is basically stable The results were discussed with the patient and the son at the bedside. Patient wants to discuss with her 2 daughters. One of the patient's daughters contacted the office and the results were given to her. Patient is also requesting a family meeting. This has been slated for 3 PM on Saturday. At that time the patient and her family will make decisions as to how they would like to proceed, continue on therapy and possibly have palliative care or hospice care. Intractable pain of malignancy -Pain meds cont to be adjusted, fentanyl increased, pt reporting decent pain control at this time. Cont to assess and adjust for pt comfort -Meds to prevent narcotic induced constipation ordered Time with Patient: Greater than 30
[2024-04-09] MEDS: ONDANSETRON 4 MG/2 ML VIAL IVP PRN (06:09)
[2024-04-09 09:12] LABS: HCT 32.4 % (34.0-46.0); HGB 10.5 gm/dL (11.4-16.0); Hypochromasia Moderate; MCH 30.3 pg (25.0-35.0); MCHC 32.5 g/dL (31.0-37.0); MCV 93.1 fL (80.0-100.0); Mean Platelet Volume 7.9; Platelet Count 190 k/uL (150-450); RBC 3.48 m/uL (3.80-5.40); RDW 15.4 % (11.5-15.5)
[2024-04-09 09:23] LABS: African American GFR (CKD) >90 (>60 ml/min/1.73 sqM); Anion Gap -3 mmol/L; Blood Urea Nitrogen <2 mg/dL (7-17); Calcium 7.3 mg/dL (8.4-10.2); Carbon Dioxide 30 mmol/L (22-30); Chloride 103 mmol/L (98-107); Glucose 86 mg/dL (74-99); Non-African American GFR(CKD) 89 (>60 ml/min/1.73 sqM); Sodium 130 mmol/L (137-145)
[2024-04-09] MEDS: Apixaban Initiation Dose--VTE 5 MG TAB PO SCH (09:51)
--- NOTE | 2024-04-09 14:18 | P.PN ---
Subjective Progress Note Date: 04/09/24 89 year old F with PMH of chronic hypoxic respiratory failure due to metastatic lung CA presents to the ED for FTT, decreased PO intake and intractable pain. Pain is worse in her RLQ. She reports nausea but no vomiting. Also with pain between her shoulder blades. Follows Dr. Clements and Dr. Shea for her Oncology needs. Currently on Fentanyl 25 mcg Q72H and Olive 10 PRN for pain control. In the ED she underwent extensive evaluation. BP 134/84, RR 20, T 97.2F, HR 74, 86% on RA. CBC, Coag panel, CMP significant for PT 13, INR 1.2, Na 131, Cl 92, bicarb 31, BUN 6, glu 116, Ca 7.8, alb 2.3. Amylase 35, Lipase 109. EKG sinus rhythm with PVCs. CXR nodular density left suprahilar region with small right pleural effusion. KUB nonobstructive bowel gas pattern. 04/07 Patient was seen and examined. Fentanyl patch increased to 50 mcg Q72H. Pain improved. BMP Na 131, K 3.1, BUN 4, Ca 7.3. Mag 1.7. UA neg LE or nitrite. 04/08 Patient was seen and examined. Better controlled pain. CT done yesterday shows bilateral PE, similar left perihilar soft tissue thickening, stable R midlung nodule, scattered osseous metastatic lesions, moderate pleural effusion. Started on heparin drip. Venous doppler + for DVT LLE. CBC and BMP WBC 3.74, RBC 3.33, Hg 9.6, Hct 30.1, PT 13.5, INR 1.3, APTT 56.5, Na 130, K 3.3, BUN 3, Cr 0.49, glu 71, Ca 7. 04/09 Patient was seen and examined. Agreeable for hospice consult. Maintained on heparin drip. Plans for family meeting on Saturday to discus results of CT with Oncology. Echo EF 60-65% with RVPO, severe pulmonary HTN and mild MR + mod- severe TR. CBC and BMP significant for RBC 3.48, Hg 10.5, Hc 32.4, APTT 62.4, Na 130, BUN < 2, Cr 0.48, Ca 7.3. General: non toxic, no distress, appears at stated age Derm: warm, dry Head: atraumatic, normocephalic, symmetric Eyes: EOMI, no lid lag, anicteric sclera Mouth: no lip lesion, mucus membranes moist Cardiovascular: S1S2 reg, no murmur Lungs: Decreased BS bilateral, no rhonchi, no rales , no accessory muscle use Ext: no gross muscle atrophy, no edema, no contractures Neuro: no focal neuro deficits Psych: Alert, oriented, appropriate affect Based on my assessment of this patient, this patient meets a high complexity level of care. Intractable pain due to metastatic cancer: Fentanyl patch 50 mcg Q72H. Morphine 4 mg IV Q4H PRN for pain. Olive 10 Q8H PRN for pain. Plans for Oncology family meeting on Saturday. Pulmonary embolus and LLE DVT: Switch heparin drip to Eliquis 10 mg PO BID. Hyponatremia due to dehydration: Could be due to SIAHD. NS 50 cc/hr. Zofran 4 mg IV TID PRN N/V. Chronic hypoxic respiratory failure due to metastatic lung CA: Supplemental O2 to maintain O2 sat > 92%. FTT: PT and OT consult. Discussed with family regarding options of hospice and palliative care. Supratherapeutic INR due to liver metastasis Resolved: HypoCl metabolic alkalosis, HypoK CODE STATUS: NO CODE DVT Prophylaxis: Eliquis. GI Prophylaxis: Designated medical POA if patient is not able to make medical decisions for themselves: Daughters I have reviewed the following resourcing consultant notes: Oncology. I have reviewed the results of the following tests: CBC, BMP. Echo. I have ordered the following tests: I have discussed the care of this patient with the following independent historian: Daughter, RN I have independently interpreted the following test below: I have discussed the management of this patient with the following physician: Objective - Vital Signs Vital signs: Vital Signs Temp 97.5 F L 04/09/24 07:35 Pulse 78 04/09/24 08:35 Resp 18 04/09/24 07:35 BP 103/54 04/09/24 07:35 Pulse Ox 100 04/09/24 07:35 FiO2 Intake & Output 04/08/24 04/09/24 04/09/24 18:59 06:59 18:59 Intake Total 668.866 Balance 668.866 Intake: Intake, IV Titration 668.866 Amount Heparin Sod,Pork in 0.45% 68.866 NaCl 25,000 unit In 0.45 % NaCl 1 250ml.bag @ 12 UNITS/KG/HR 5.715 mls/hr IV .Q24H [facility] Rx#: [id number] Sodium Chloride 0.9% 1, 600 000 ml @ 50 mls/hr IV . Q20H [facility] Rx#:[id number] Other: Voiding Method Bedside Commode Bedside Commode # Voids 2 1 - Labs CBC & Chem 7: 04/09/24 04:48 04/09/24 04:48 Labs: Abnormal Lab Results - Last 24 Hours (Table) 04/09/24 Range/Units 04:48 APTT 62.4 H (22.0-30.0) sec
[2024-04-10 05:22] LABS: HCT 33.4 % (34.0-46.0); Hypochromasia Slight; MCHC 32.9 g/dL (31.0-37.0); MCV 91.3 fL (80.0-100.0); Mean Platelet Volume 7.1; Platelet Count 186 k/uL (150-450); RBC 3.66 m/uL (3.80-5.40); RDW 15.6 % (11.5-15.5)
[2024-04-10 05:33] LABS: African American GFR (CKD) >90 (>60 ml/min/1.73 sqM); Anion Gap 0 mmol/L; Blood Urea Nitrogen <2 mg/dL (7-17); Calcium 7.4 mg/dL (8.4-10.2); Carbon Dioxide 26 mmol/L (22-30); Chloride 105 mmol/L (98-107); Glucose 86 mg/dL (74-99); Non-African American GFR(CKD) >90 (>60 ml/min/1.73 sqM); Potassium 3.6 mmol/L (3.5-5.1); Sodium 131 mmol/L (137-145)
--- NOTE | 2024-04-10 14:17 | P.PN ---
Subjective Progress Note Date: 04/10/24 89 year old F with PMH of chronic hypoxic respiratory failure due to metastatic lung CA presents to the ED for FTT, decreased PO intake and intractable pain. Pain is worse in her RLQ. She reports nausea but no vomiting. Also with pain between her shoulder blades. Follows Dr. Clements and Dr. Shea for her Oncology needs. Currently on Fentanyl 25 mcg Q72H and [place] 10 PRN for pain control. In the ED she underwent extensive evaluation. BP 134/84, RR 20, T 97.2F, HR 74, 86% on RA. CBC, Coag panel, CMP significant for PT 13, INR 1.2, Na 131, Cl 92, bicarb 31, BUN 6, glu 116, Ca 7.8, alb 2.3. Amylase 35, Lipase 109. EKG sinus rhythm with PVCs. CXR nodular density left suprahilar region with small right pleural effusion. KUB nonobstructive bowel gas pattern. 04/07 Patient was seen and examined. Fentanyl patch increased to 50 mcg Q72H. Pain improved. BMP Na 131, K 3.1, BUN 4, Ca 7.3. Mag 1.7. UA neg LE or nitrite. 04/08 Patient was seen and examined. Better controlled pain. CT done yesterday shows bilateral PE, similar left perihilar soft tissue thickening, stable R midlung nodule, scattered osseous metastatic lesions, moderate pleural effusion. Started on heparin drip. Venous doppler + for DVT LLE. CBC and BMP WBC 3.74, RBC 3.33, Hg 9.6, Hct 30.1, PT 13.5, INR 1.3, APTT 56.5, Na 130, K 3.3, BUN 3, Cr 0.49, glu 71, Ca 7. 04/09 Patient was seen and examined. Agreeable for hospice consult. Maintained on heparin drip. Plans for family meeting on Saturday to discus results of CT with Oncology. Echo EF 60-65% with RVPO, severe pulmonary HTN and mild MR + mod- severe TR. CBC and BMP significant for RBC 3.48, Hg 10.5, Hc 32.4, APTT 62.4, Na 130, BUN < 2, Cr 0.48, Ca 7.3. 04/10 Patient was seen and examined. Family meeting with Oncology today. CBC and BMP significant for RBC 3.66, Hg 11, Hct 33.4, Na 131, BUN < 2, Cr 0.46, Ca 7.2. General: non toxic, no distress, appears at stated age Derm: warm, dry Head: atraumatic, normocephalic, symmetric Eyes: EOMI, no lid lag, anicteric sclera Mouth: no lip lesion, mucus membranes moist Cardiovascular: S1S2 reg, no murmur Lungs: Decreased BS bilateral, no rhonchi, no rales , no accessory muscle use Ext: no gross muscle atrophy, no edema, no contractures Neuro: no focal neuro deficits Psych: Alert, oriented, appropriate affect Based on my assessment of this patient, this patient meets a high complexity level of care. Intractable pain due to metastatic cancer: Fentanyl patch 50 mcg Q72H. Morphine 4 mg IV Q4H PRN for pain. [place] 10 Q8H PRN for pain. Plans for Oncology family meeting today. Patient agreeable for Hospice consult Pulmonary embolus and LLE DVT: Eliquis 10 mg PO BID. Hyponatremia due to dehydration: Could be due to SIAHD. NS 50 cc/hr. Zofran 4 mg IV TID PRN N/V. Chronic hypoxic respiratory failure due to metastatic lung CA: Supplemental O2 to maintain O2 sat > 92%. FTT: PT and OT consult. Discussed with family regarding options of hospice and palliative care. Supratherapeutic INR due to liver metastasis Resolved: HypoCl metabolic alkalosis, HypoK CODE STATUS: NO CODE DVT Prophylaxis: Eliquis. GI Prophylaxis: Designated medical POA if patient is not able to make medical decisions for themselves: Daughters I have reviewed the following it web development consultant notes: Oncology. I have reviewed the results of the following tests: CBC, BMP. I have ordered the following tests: I have discussed the care of this patient with the following independent historian: Daughter I have independently interpreted the following test below: I have discussed the management of this patient with the following physician: Objective - Vital Signs Vital signs: Vital Signs Temp 98 F 04/10/24 07:31 Pulse 94 04/10/24 07:31 Resp 18 04/10/24 07:31 BP 102/56 04/10/24 07:31 Pulse Ox 98 04/10/24 07:31 FiO2 Intake & Output 04/09/24 04/10/24 04/10/24 18:59 06:59 18:59 Intake Total 590 Balance 590 Intake: Oral 590 Other: Voiding Method Bedside Commode Bedside Commode # Voids 2 2 # Bowel Movements 1 - Labs CBC & Chem 7: 04/10/24 04:54 04/10/24 04:54 Labs: Abnormal Lab Results - Last 24 Hours (Table) 04/09/24 04/09/24 04/10/24 Range/Units 04:48 04:48 04:54 RBC 3.48 L 3.66 L (3.80-5.40) m/uL Hgb 10.5 L 11.0 L (11.4-16.0) gm/dL Hct 32.4 L 33.4 L (34.0-46.0) % RDW 15.6 H (11.5-15.5) % Sodium 130 L (137-145) mmol/L BUN <2 L (7-17) mg/dL Creatinine 0.48 L (0.52-1.04) mg/dL Calcium 7.3 L (8.4-10.2) mg/dL 04/10/24 Range/Units 04:54 RBC (3.80-5.40) m/uL Hgb (11.4-16.0) gm/dL Hct (34.0-46.0) % RDW (11.5-15.5) % Sodium 131 L (137-145) mmol/L BUN <2 L (7-17) mg/dL Creatinine 0.46 L (0.52-1.04) mg/dL Calcium 7.4 L (8.4-10.2) mg/dL
[2024-04-10] MEDS: SCOPOLAMINE 1 MG/72 HR PATCH TRANSDERM STA (18:00)
--- NOTE | 2024-04-10 20:30 | P.PN ---
Subjective Progress Note Date: 04/10/24 No acute events. Reporting persisting nausea, decreased oral intake. Family meeting held today with Dr. Nowak Objective - Vital Signs Vital signs: Vital Signs Temp 97.9 F 04/10/24 16:21 Pulse 97 04/10/24 16:21 Resp 18 04/10/24 16:21 BP 96/58 04/10/24 16:21 Pulse Ox 93 L 04/10/24 16:21 FiO2 Intake & Output 04/09/24 04/10/24 04/10/24 18:59 06:59 18:59 Intake Total 590 Balance 590 Weight 47.627 kg Intake: Oral 590 Other: Voiding Method Bedside Commode Bedside Commode Bedside Commode # Voids 2 2 # Bowel Movements 1 - Labs CBC & Chem 7: 04/10/24 04:54 04/10/24 04:54 Labs: Abnormal Lab Results - Last 24 Hours (Table) 04/10/24 04/10/24 Range/Units 04:54 04:54 RBC 3.66 L (3.80-5.40) m/uL Hgb 11.0 L (11.4-16.0) gm/dL Hct 33.4 L (34.0-46.0) % RDW 15.6 H (11.5-15.5) % Sodium 131 L (137-145) mmol/L BUN <2 L (7-17) mg/dL Creatinine 0.46 L (0.52-1.04) mg/dL Calcium 7.4 L (8.4-10.2) mg/dL Assessment and Plan (1) DVT (deep venous thrombosis) Current Visit: Yes Status: Acute Priority: High Code(s): I82.409 - ACUTE EMBOLISM AND THOMBOS UNSP DEEP VN UNSP LOWER EXTREMITY SNOMED Code(s): 240766727 (2) Pulmonary embolism Current Visit: Yes Status: Acute Priority: High Code(s): I26.99 - OTHER PULMONARY EMBOLISM WITHOUT ACUTE COR PULMONALE SNOMED Code(s): 59307223 (3) Weakness Current Visit: Yes Status: Acute Priority: High Code(s): R53.1 - WEAKNESS SNOMED Code(s): 53552504 (4) Metastatic lung cancer (metastasis from lung to other site) Current Visit: Yes Status: Chronic Priority: Medium Code(s): C34.90 - MALIGNANT NEOPLASM OF UNSP PART OF UNSP BRONCHUS OR LUNG SNOMED Code(s): 06561935 (5) Pain due to malignant neoplasm metastatic to bone Current Visit: Yes Status: Chronic Priority: High Code(s): G89.3 - NEOPLASM RELATED PAIN (ACUTE) (CHRONIC); C79.51 - SECONDARY MALIGNANT NEOPLASM OF BONE SNOMED Code(s): 069289636 Plan: Generalized weakness and progressive physical decline -It was discussed with patient, and her family at the bedside, that the decline could be attributed to treatment of disease or progressive disease. They verbalized understanding. -CT CAP with contrast ordered to assess disease. Scan shows disease appears to be overall stable. Case was also discussed with radiation oncology Pulmonary embolism Red alert page-pulmonary embolism found on CT. -Hep drip started. BLE doppler for baseline did show LLE DVT. Tolerating heparin drip at this time. 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 Fatigue and weakness- persist. Anorexia, recently started on Marinol. -PET/CT scheduled for April 30. Family voicing concerns that they do not think that they can get her out of the house for that imaging. As above, CT ordered -CT of the chest abdomen and pelvis with contrast reports the nonocclusive bilateral pulmonary emboli no evidence for right heart strain. Similar left perihilar soft tissue thickening, additional stable right midlung peripheral nodule. Stable hepatic metastases. Redemonstration of scattered osseous metastatic lesions but they are demonstrating a more sclerotic appearance suggesting treatment. There is development of compression deformities involving L2 and L4. Development of moderate bilateral pleural effusions. Scan overall showing stable disease Family meeting held today with patient and children. Discussed imaging findings, treatment options vs comfort care measures.After detailed discussion, patient decided that she would like to discontinue systemic treatment and pursue comfort care measures. All questions and concerns were addressed. Hospice consult placed Doctor attests: I performed a history and physical examination of this patient, developed impression and plan of care. Discussed with dictator. I agree with dictators note, documented as a scribe.
--- NOTE | 2024-04-11 12:55 | P.PN ---
Subjective Progress Note Date: 04/11/24 89 year old F with PMH of chronic hypoxic respiratory failure due to metastatic lung CA presents to the ED for FTT, decreased PO intake and intractable pain. Pain is worse in her RLQ. She reports nausea but no vomiting. Also with pain between her shoulder blades. Follows Dr. Clements and Dr. Shea for her Oncology needs. Currently on Fentanyl 25 mcg Q72H and [place] 10 PRN for pain control. In the ED she underwent extensive evaluation. BP 134/84, RR 20, T 97.2F, HR 74, 86% on RA. CBC, Coag panel, CMP significant for PT 13, INR 1.2, Na 131, Cl 92, bicarb 31, BUN 6, glu 116, Ca 7.8, alb 2.3. Amylase 35, Lipase 109. EKG sinus rhythm with PVCs. CXR nodular density left suprahilar region with small right pleural effusion. KUB nonobstructive bowel gas pattern. 04/07 Patient was seen and examined. Fentanyl patch increased to 50 mcg Q72H. Pain improved. BMP Na 131, K 3.1, BUN 4, Ca 7.3. Mag 1.7. UA neg LE or nitrite. 04/08 Patient was seen and examined. Better controlled pain. CT done yesterday shows bilateral PE, similar left perihilar soft tissue thickening, stable R midlung nodule, scattered osseous metastatic lesions, moderate pleural effusion. Started on heparin drip. Venous doppler + for DVT LLE. CBC and BMP WBC 3.74, RBC 3.33, Hg 9.6, Hct 30.1, PT 13.5, INR 1.3, APTT 56.5, Na 130, K 3.3, BUN 3, Cr 0.49, glu 71, Ca 7. 04/09 Patient was seen and examined. Agreeable for hospice consult. Maintained on heparin drip. Plans for family meeting on Saturday to discus results of CT with Oncology. Echo EF 60-65% with RVPO, severe pulmonary HTN and mild MR + mod- severe TR. CBC and BMP significant for RBC 3.48, Hg 10.5, Hc 32.4, APTT 62.4, Na 130, BUN < 2, Cr 0.48, Ca 7.3. 04/10 Patient was seen and examined. Family meeting with Oncology today. CBC and BMP significant for RBC 3.66, Hg 11, Hct 33.4, Na 131, BUN < 2, Cr 0.46, Ca 7.2. 04/11 Patient was seen and examined. Nausea improved after starting Scopolamine patch yesterday. Patient retaining > 400 cc overnight but able to urinate. Pain well controlled. Family on board for hospice. They would like hospice services from [facility] [place]. Discussed with case management and referral sent. Awaiting response from Hospice prior to discharge. General: non toxic, no distress, appears at stated age Derm: warm, dry Head: atraumatic, normocephalic, symmetric Eyes: EOMI, no lid lag, anicteric sclera Mouth: no lip lesion, mucus membranes moist Cardiovascular: S1S2 reg, no murmur Lungs: Decreased BS bilateral, no rhonchi, no rales , no accessory muscle use Ext: no gross muscle atrophy, no edema, no contractures Neuro: no focal neuro deficits Psych: Alert, oriented, appropriate affect Based on my assessment of this patient, this patient meets a high complexity level of care. Intractable pain due to metastatic cancer: Fentanyl patch 50 mcg Q72H. Morphine 4 mg IV Q4H PRN for pain. [place] 10 Q8H PRN for pain. Patient agreeable for Hospice consult Urinary retention: Bladder scan ordered. Pulmonary embolus and LLE DVT: Eliquis 10 mg PO BID. Hyponatremia due to dehydration: Could be due to SIAHD. Zofran 4 mg IV TID PRN N/V. Chronic hypoxic respiratory failure due to metastatic lung CA: Supplemental O2 to maintain O2 sat > 92%. FTT: PT and OT consult. Plans for hospice at home. Supratherapeutic INR due to liver metastasis Resolved: HypoCl metabolic alkalosis, HypoK CODE STATUS: NO CODE DVT Prophylaxis: Eliquis. GI Prophylaxis: Designated medical POA if patient is not able to make medical decisions for themselves: Medhat I have reviewed the following showroom consultant notes: I have reviewed the results of the following tests: I have ordered the following tests: I have discussed the care of this patient with the following independent historian: Medhat, case management, RN I have independently interpreted the following test below: I have discussed the management of this patient with the following physician: Objective - Vital Signs Vital signs: Vital Signs Temp 98.4 F 04/11/24 07:59 Pulse 72 04/11/24 11:17 Resp 17 04/11/24 07:59 BP 107/62 04/11/24 07:59 Pulse Ox 93 L 04/11/24 07:46 FiO2 Intake & Output 04/10/24 04/11/24 04/11/24 18:59 06:59 18:59 Intake Total 600 660 Output Total 100 Balance 500 660 Weight 47.627 kg Intake: Intake, IV Titration 600 600 Amount Sodium Chloride 0.9% 1, 600 600 000 ml @ 50 mls/hr IV . Q20H [facility] Rx#:[id number] Oral 60 Output: Urine 100 Other: Voiding Method Bedside Commode Bedside Commode # Voids 1 - Labs CBC & Chem 7: 04/10/24 04:54 04/10/24 04:54
--- NOTE | 2024-04-12 09:26 | P.CONS ---
History of Present Illness - Reason for Consult Consult date: 04/12/24 Metastatic lung cancer Requesting physician: Emir Nowak - Chief Complaint "My pain is well-controlled" - History of Present Illness Ms. 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 She underwent a course of definitive hypofractionated radiation therapy to 60 Gy in 10 fractions, completing treatment on 11/22/2022. She then presented with diffusely metastatic presumed osseous disease in 12/2023, and underwent a course of palliative radiation therapy to 20 Gy in 5 fractions to the sacrum and lower lumbar spine, completing treatment on 01/13/2024. She then completed an additional course of palliative radiation therapy to right paraspinal lesions at the 9th and 12th ribs, completing treatment on 02/14/2024. She has continued on Tabrecta. The patient is well-known to me. I last saw her on 03/17/2024. Over the past 2 months, she has had significant functional decline. She is unable to care for herself and is essentially bedbound. She notes profound weakness. CT chest/abdomen/pelvis on 04/07/2024 demonstrated new bilateral pulmonary emboli. Her osseous disease burden, on my review, demonstrates a mixed response to treatment. Note that the L2 body has not been irradiated, but the L4 has. Review of Systems as per HPI Past Medical History Past Medical History: Cancer, COPD Additional Past Medical History / Comment(s): lung CA History of Any Multi-Drug Resistant Organisms: None Reported Additional Past Surgical History / Comment(s): Back surgery Past Anesthesia/Blood Transfusion Reactions: No Reported Reaction Past Psychological History: No Psychological Hx Reported Smoking Status: Former smoker Past Alcohol Use History: None Reported Past Drug Use History: None Reported Medications and Allergies Home Medications Medication Instructions Recorded Confirmed Type Benzonatate [Tessalon Perles] 100 mg PO TID PRN 04/06/24 04/06/24 History HYDROcodone/APAP 10-325MG [[place] 1 tab PO TID PRN 04/06/24 04/06/24 History 10-325] Omeprazole 20 mg PO DAILY@0700 04/06/24 04/06/24 History Ondansetron [Zofran] 4 mg PO DAILY@0700 04/06/24 04/06/24 History Sennosides [Senokot] 8.6 mg PO BID@0700,1800 04/06/24 04/06/24 History droNABinol [Marinol] 2.5 mg PO HS@1800 04/06/24 04/06/24 History Apixaban [Eliquis Starter Pack 5 - 10 mg PO DIRECTED 30 Days 04/08/24 Rx (for VTE)] #1 each Acetaminophen Tab [Tylenol] 650 mg PO Q6HR PRN tab 04/12/24 Rx Ipratropium-Albuterol Nebulize 3 ml INHALATION RT-QID PRN each 04/12/24 Rx [Duoneb 0.5 mg-3 mg/3 ml Soln] Scopolamine [Scopolamine 1 MG/72 1 patch TRANSDERM Q72H #3 patch 04/12/24 Rx HR patch] fentaNYL 50MCG/HR PATCH [Duragesic 1 patch TRANSDERM Q72H #3 patch 04/12/24 Rx 50MCG/HR] Allergies Allergy/AdvReac Type Severity Reaction Status Date / Time No Known Allergies Allergy Verified 04/06/24 17:33 Physical Exam Vitals: Vital Signs Temp Pulse Pulse Resp BP Pulse Ox 04/12/24 08:00 98 F 96 18 124/72 97 04/12/24 07:48 78 04/12/24 07:41 94 L 04/12/24 07:36 82 04/12/24 04:11 78 04/12/24 04:01 75 04/12/24 01:33 98.3 F 96 20 100/60 94 L 04/11/24 19:48 98.2 F 91 16 100/57 95 04/11/24 19:44 74 04/11/24 19:34 72 04/11/24 15:18 70 04/11/24 15:10 76 04/11/24 12:56 98.2 F 97 17 105/63 97 04/11/24 11:17 72 04/11/24 11:06 76 Intake and Output 04/11/24 04/12/24 04/12/24 22:59 06:59 14:59 Intake Total 240 Output Total 600 200 Balance -360 -200 Intake: Oral 240 Output: Urine 600 200 Other: Voiding Method Bedside Commode Indwelling Catheter appears chronically ill and deconditioned - Constitutional General appearance: no acute distress - Respiratory Respiratory: negative: prolonged expiration, prolonged inspiration Results CBC & Chem 7: 04/10/24 04:54 04/10/24 04:54 Assessment and Plan Assessment: Ms. 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 She underwent a course of definitive hypofractionated radiation therapy to 60 Gy in 10 fractions, completing treatment on 11/22/2022. She then presented with diffusely metastatic presumed osseous disease in 12/2023, and underwent a course of palliative radiation therapy to 20 Gy in 5 fractions to the sacrum and lower lumbar spine, completing treatment on 01/13/2024. She then completed an additional course of palliative radiation therapy to right paraspinal lesions at the 9th and 12th ribs, completing treatment on 02/14/2024. She has continued on Tabrecta. Plan: The patient has had progressive functional decline. Although her imaging does not represent gauri progression, functionally she does not have the ability to care for herself. She does not want to suffer. I think she is appropriate for hospice care and she indicates to me that she is agreeable to this approach. Dany Shea MD Radiation Oncology Time with Patient: Greater than 30
--- NOTE | 2024-04-12 10:50 | P.DS ---
Providers Date of admission: 04/06/24 16:53 Expected date of discharge: 04/12/24 Attending physician: Val Cruz MD Consults: 04/06/24 16:52 Consult Physician Routine Consulting Provider: Emir Nowak Consult Reason/Comments: oncological care Do you want consulting provider notified?: Yes 04/09/24 13:12 Consult Physician Routine Consulting Provider: Dany Shea Consult Reason/Comments: Hx radiation, painful bone mets Do you want consulting provider notified?: Already Contacted Primary care physician: Willie Buenrostro DO Hospital Course: 89 year old F with PMH of chronic hypoxic respiratory failure due to metastatic lung CA presents to the ED for FTT, decreased PO intake and intractable pain. Pain is worse in her RLQ. She reports nausea but no vomiting. Also with pain between her shoulder blades. Follows Dr. Clements and Dr. Shea for her Oncology needs. Currently on Fentanyl 25 mcg Q72H and [place] 10 PRN for pain control. In the ED she underwent extensive evaluation. BP 134/84, RR 20, T 97.2F, HR 74, 86% on RA. CBC, Coag panel, CMP significant for PT 13, INR 1.2, Na 131, Cl 92, bicarb 31, BUN 6, glu 116, Ca 7.8, alb 2.3. Amylase 35, Lipase 109. EKG sinus rhythm with PVCs. CXR nodular density left suprahilar region with small right pleural effusion. KUB nonobstructive bowel gas pattern. Patient is admitted for intractable pain due to metastatic cancer. Fentanyl patch increased to [address] done yesterday shows bilateral PE, similar left perihilar soft tissue thickening, stable R midlung nodule, scattered osseous metastatic lesions, moderate pleural effusion. Venous doppler + for DVT LLE. Started on heparin drip, Echo EF 60-65% with RVPO, severe pulmonary HTN and mild MR + mod-severe TR, Transitioned to Eliquis. Oncology had a family meeting on Saturday and it was decided to pursue Hospice at home. Mccarty catheter inserted for urinary retention. Family would like Hospice services from [facility] [place]. 04/12 Patient was seen and examined. Slightly confused and disoriented last night. Pain well controlled on Fentanyl patch 50 mcg Q72H. With Mccarty catheter for urinary retention. Daughter would like to take her home today. Plans for discharge home with hospice today. Change Fentanyl and Scopolamine patch prior to discharge. General: non toxic, no distress, appears at stated age Derm: warm, dry Head: atraumatic, normocephalic, symmetric Eyes: EOMI, no lid lag, anicteric sclera Mouth: no lip lesion, mucus membranes moist Cardiovascular: good distal perfusion in all 4 extremities Lungs: breathing comfortably, no accessory muscle use Ext: no gross muscle atrophy, no edema, no contractures Psych: Alert, oriented Discharge Diagnosis: Intractable pain due to metastatic cancer Urinary retention Pulmonary embolus and LLE DVT Hyponatremia due to dehydration versus SIADH Chronic hypoxic respiratory failure due to metastatic lung CA FTT Supratherapeutic INR due to liver metastasis Resolved: HypoCl metabolic alkalosis, HypoK This complex discharge took 35 minutes to complete. Patient Condition at Discharge: Stable Plan - Discharge Summary Discharge Rx Participant: Yes New Discharge Prescriptions: New Ipratropium-Albuterol Nebulize [Duoneb 0.5 mg-3 mg/3 ml Soln] 3 ml INHALATION RT-QID PRN each PRN Reason: Shortness Of Breath Or Wheezing fentaNYL 50MCG/HR PATCH [Duragesic 50MCG/HR] 1 patch TRANSDERM Q72H #3 patch Acetaminophen Tab [Tylenol] 650 mg PO Q6HR PRN tab PRN Reason: Mild Pain Or Fever > 100.5 Scopolamine [Scopolamine 1 MG/72 HR patch] 1 patch TRANSDERM Q72H #3 patch Continue Sennosides [Senokot] 8.6 mg PO BID@0700,1800 HYDROcodone/APAP 10-325MG [[place] 10-325] 1 tab PO TID PRN PRN Reason: Breakthrough Pain droNABinol [Marinol] 2.5 mg PO HS@1800 Omeprazole 20 mg PO DAILY@0700 Ondansetron [Zofran] 4 mg PO DAILY@0700 Benzonatate [Tessalon Perles] 100 mg PO TID PRN PRN Reason: Cough Discontinued Folic Acid 0.8 mg PO HS@1800 Cyanocobalamin (Vitamin B-12) [Vitamin B-12] 1,000 mcg PO HS@1800 Capmatinib Hydrochloride [Tabrecta] 400 mg PO BID@0700,1800 fentaNYL 25MCG/HR PATCH [Duragesic 25MCG/HR] 1 patch TRANSDERM Q72H dexAMETHasone [Decadron] 8 mg PO DIRECTED Discharge Medication List Benzonatate [Tessalon Perles] 100 mg PO TID PRN 04/06/24 [History] HYDROcodone/APAP 10-325MG [[place] 10-325] 1 tab PO TID PRN 04/06/24 [History] Omeprazole 20 mg PO DAILY@0700 04/06/24 [History] Ondansetron [Zofran] 4 mg PO DAILY@0700 04/06/24 [History] Sennosides [Senokot] 8.6 mg PO BID@0700,1800 04/06/24 [History] droNABinol [Marinol] 2.5 mg PO HS@1800 04/06/24 [History] Acetaminophen Tab [Tylenol] 650 mg PO Q6HR PRN tab 04/12/24 [Rx] Ipratropium-Albuterol Nebulize [Duoneb 0.5 mg-3 mg/3 ml Soln] 3 ml INHALATION RT-QID PRN each 04/12/24 [Rx] Scopolamine [Scopolamine 1 MG/72 HR patch] 1 patch TRANSDERM Q72H #3 patch 04/12/24 [Rx] fentaNYL 50MCG/HR PATCH [Duragesic 50MCG/HR] 1 patch TRANSDERM Q72H #3 patch 04/12/24 [Rx] Follow up Appointment(s)/Referral(s): Willie Buenrostro DO [Primary Care Provider] - 1-2 days Patient Instructions/Handouts: Heparin (By injection), Pulmonary Embolism (DC) Activity/Diet/Wound Care/Special Instructions: Activity: As tolerated. Take breaks as needed. Diet: Comfort feeds, anything everything your heart desires. Special Instructions: Daily Home Medications including Eliquis to be determined per hospice team and patient/family preference. Thank you for allowing us to participate in your care, it was truly a pleasure having you for our patient!!! Discharge Disposition: HOME WITH HOSPICE
[2024-04-12] MEDS: SCOPOLAMINE 1 MG/72 HR PATCH TRANSDERM SCH (11:28)
[2024-04-12 12:43] VITALS: BP 103/62; RESP 19; TEMP 98.3
[2024-04-12 15:21] VITALS: PULSE 76
== END 2024-04-12 16:06 | disposition hospice, home (50) | DRG 947 ==
LOC: EC 12:37 → SUPCPDRO 12:37 → 5NMEDONC 16:53
PROVIDERS: ADMIT Family Medicine; ATTEND Family Medicine
DX: G89.3 Neoplasm related pain (acute) (chronic) (principal); E43 Unspecified severe protein-calorie malnutrition; I26.99 Other pulmonary embolism without acute cor pulmonale; C34.12 Malignant neoplasm of upper lobe, left bronchus or lung; C78.7 Secondary malignant neoplasm of liver and intrahepatic bile duct; C79.51 Secondary malignant neoplasm of bone; E22.2 Syndrome of inappropriate secretion of antidiuretic hormone; I82.4Z2 Acute embolism and thrombosis of unspecified deep veins of left distal lower extremity; J90 Pleural effusion, not elsewhere classified; J96.11 Chronic respiratory failure with hypoxia; Z68.1 Body mass index [BMI] 19.9 or less, adult; E87.3 Alkalosis; E87.1 Hypo-osmolality and hyponatremia; E86.0 Dehydration; Z66 Do not resuscitate; I27.20 Pulmonary hypertension, unspecified; R62.7 Adult failure to thrive; E87.6 Hypokalemia; I08.1 Rheumatic disorders of both mitral and tricuspid valves; I49.3 Ventricular premature depolarization; J44.9 Chronic obstructive pulmonary disease, unspecified; R33.9 Retention of urine, unspecified; R79.1 Abnormal coagulation profile; Z74.01 Bed confinement status; Z87.891 Personal history of nicotine dependence; Z92.3 Personal history of irradiation
CPT/HCPCS: 36415; 71046; 71260; 74018; 74177; 80048; 80053; 81001; 82150; 82272; 83690; 83735; 85025; 85027; 85610; 85730; 93005; 93306; 93970; 94640; 94760; 96361; 96374; 96375; 99285